=== PATIENT | male | born 1945 | race Caucasian/White ===

== ENCOUNTER 2016-11-22 08:13 | Emergency (ER) | payer MEDICARE ==
--- NOTE | 2016-11-22 08:57 | ED ---
General Adult HPI - General Chief complaint: Urogenital Stated complaint: Altered Mental Time Seen by Provider: 11/22/16 08:50 Source: patient, EMS, RN notes reviewed Mode of arrival: EMS Limitations: no limitations - History of Present Illness Initial comments: Patient is a 71-year-old male who presents emergency room today by EMS, the chief complaint of dizziness that occurred earlier this morning. States he woke up he felt that his face was flushed. He states he did go to the mirror to look. States he got a little lightheaded and dizzy on his way to the bathroom. He admits that it lasted approximately 20 minutes. He states that this time he is feeling much better. He denies any complaints currently. He admits to problems voiding. He states is been ongoing. He states he has a decreased stream. Patient denies any recent fever, chills, shortness of breath, chest pain, back pain, abdominal pain, nausea or vomiting, numbness or tingling , dysuria or hematuria, constipation or diarrhea, headaches or visual changes, or any other complaints. - Related Data Home Medications Medication Instructions Recorded Confirmed Ipratropium/Albuterol Sulfate 3 ml INHALATION RT-QID PRN 01/01/14 11/22/16 [Duoneb 0.5 mg-3 mg/3 ml Soln] Atorvastatin [Lipitor] 40 mg PO DAILY 11/22/16 11/22/16 Citalopram Hydrobromide [CeleXA] 40 mg PO DAILY 11/22/16 11/22/16 Ergocalciferol [Vitamin D2] 50,000 unit PO Q7D 11/22/16 11/22/16 Famotidine [Pepcid] 20 mg PO DAILY 11/22/16 11/22/16 Folic Acid 1 mg PO DAILY 11/22/16 11/22/16 Insulin Glargine,Hum.rec.anlog 80 unit SQ DAILY 11/22/16 11/22/16 [Lantus Solostar] Insulin Lispro [humaLOG Kwikpen] 12 unit SQ TID 11/22/16 11/22/16 Lisinopril [Zestril] 40 mg PO DAILY 11/22/16 11/22/16 Magnesium Oxide [Mag-Ox] 400 mg PO BID 04/04/17 04/04/17 risperiDONE [RisperDAL] 1 mg PO DAILY 11/22/16 11/22/16 Previous Rx's Medication Instructions Recorded Ciprofloxacin HCl [Cipro] 500 mg PO Q12HR #20 day 11/22/16 Allergies Allergy/AdvReac Type Severity Reaction Status Date / Time No Known Allergies Allergy Verified 11/22/16 09:10 Review of Systems ROS Statement: Those systems with pertinent positive or pertinent negative responses have been documented in the HPI. ROS Other: All systems not noted in ROS Statement are negative. Past Medical History Past Medical History: Asthma, Diabetes Mellitus, Hyperlipidemia, Hypertension, Pneumonia Additional Past Medical History / Comment(s): ECZEMA, HAS SOME BLOCKAGE TO CAROTIDS NOT SURE WHAT %, PT STATED HIS BODY MAKES TOO MUCH BLOOD THEY HAD TO TAKE BLOOD FROM HIM, CENTRAL RETINAL VEIN OCCLUSION LT EYE. History of Any Multi-Drug Resistant Organisms: None Reported Past Surgical History: Tonsillectomy Additional Past Surgical History / Comment(s): neck surgery-DISC SX AND HAS A CADAVIER BONE , LT EYE CATARACT, LT EYE-RETINAL SX, RT HAND PINKY FINGER HAD CRUSHING INJURY-SX TO REPAIR. Past Anesthesia/Blood Transfusion Reactions: No Reported Reaction Past Psychological History: Anxiety Smoking Status: Former smoker Past Alcohol Use History: None Reported Past Drug Use History: None Reported, Unable to Obtain General Exam - General Exam Comments Initial Comments: General: The patient is awake and alert, in no distress, and does not appear acutely ill. Eye: Pupils are equal, round and reactive to light, extra-ocular movements are intact. No nystagmus. There is normal conjunctiva bilaterally. No signs of icterus. Ears, nose, mouth and throat: There are moist mucous membranes and no oral lesions. Neck: The neck is supple, there is no tenderness or JVD. Cardiovascular: There is a regular rate and rhythm. No murmur, rub or gallop is appreciated. Respiratory: Lungs are clear to auscultation, respirations are non-labored, breath sounds are equal. No wheezes, stridor, rales, or rhonchi. Gastrointestinal: Soft, non-distended, non-tender abdomen without masses or organomegaly noted. There is no rebound or guarding present. No CVA tenderness. Bowel sounds are unremarkable. Musculoskeletal: Normal ROM, no tenderness. Strength 5/5. Sensation intact. Pulses equal bilaterally 2+. Neurological: A&O x 3. CN II-XII intact, There are no obvious motor or sensory deficits. Coordination appears grossly intact. Speech is normal. Skin: Skin is warm and dry and no rashes or lesions are noted. Psychiatric: Cooperative, appropriate mood & affect, normal judgment. Limitations: no limitations Course Vital Signs 11/22/16 11/22/16 11/22/16 08:15 08:48 13:07 Temperature 98.7 F 98.2 F Pulse Rate 85 90 Respiratory 18 18 17 Rate Blood Pressure 129/58 193/79 O2 Sat by Pulse 99 92 L Oximetry EKG Findings - EKG Comments: EKG Findings:: EKG performed at 0930: A 12-lead EKG was performed and interpreted by me as showing the following: Rate is 84, and rhythm is normal sinus. There are normal QRS complexes and normal R-wave progression. ST segments have no elevation or depression, and PA segments appear normal. Medical Decision Making - Medical Decision Making Patient reexamined at this time shows no signs of distress. He is been able to her urine emergency room. He has no complaints. No dizziness or lightheadedness. His labs been reviewed does show 15,000 white count. Rare bacteria in his urine sample. He does admit to some symptoms of dysuria. He will be covered with antibiotics as culture is pending. Patient feels comfortable being discharged home. Case was discussed with attending physician Dr. Mcclendon. - Lab Data Result diagrams: 11/22/16 08:48 11/22/16 08:48 Lab Results 11/22/16 11/22/16 11/22/16 Range/Units 08:43 08:48 08:48 WBC 15.7 H (3.8-10.6) k/uL RBC 4.77 (4.30-5.90) m/uL Hgb 15.1 (13.0-17.5) gm/dL Hct 46.6 (39.0-53.0) % MCV 97.7 (80.0-100.0) fL MCH 31.7 (25.0-35.0) pg MCHC 32.4 (31.0-37.0) g/dL RDW 13.7 (11.5-15.5) % Plt Count 209 (150-450) k/uL Neutrophils % 91 % Lymphocytes % 4 % Monocytes % 5 % Eosinophils % 0 % Basophils % 0 % Neutrophils # 14.2 H (1.3-7.7) k/uL Lymphocytes # 0.6 L (1.0-4.8) k/uL Monocytes # 0.7 (0-1.0) k/uL Eosinophils # 0.0 (0-0.7) k/uL Basophils # 0.0 (0-0.2) k/uL PT (9.0-12.0) sec INR (<1.1) APTT (22.0-30.0) sec Sodium (137-145) mmol/L Potassium (3.5-5.1) mmol/L Chloride (98-107) mmol/L Carbon Dioxide (22-30) mmol/L Anion Gap mmol/L BUN (9-20) mg/dL Creatinine (0.66-1.25) mg/dL Est GFR (MDRD) Af Amer (>60 ml/min/1.73 sqM) Est GFR (MDRD) Non-Af (>60 ml/min/1.73 sqM) Glucose (74-99) mg/dL POC Glucose (mg/dL) 183 H (75-99) mg/dL POC Glu Theatrical Dresser ID Sharon Pool Calcium (8.4-10.2) mg/dL Magnesium (1.6-2.3) mg/dL Total Bilirubin (0.2-1.3) mg/dL AST (17-59) U/L ALT (21-72) U/L Alkaline Phosphatase (38-126) U/L Total Creatine Kinase 535 H (55-170) U/L CK-MB (CK-2) 5.1 H* (0.0-2.4) ng/mL CK-MB (CK-2) Rel Index 1.0 Troponin I 0.024 (0.000-0.034) ng/mL Total Protein (6.3-8.2) g/dL Albumin (3.5-5.0) g/dL Urine Color Urine Appearance (Clear) Urine pH (5.0-8.0) Ur Specific Adams (1.001-1.035) Urine Protein (Negative) Urine Glucose (UA) (Negative) Urine Ketones (Negative) Urine Blood (Negative) Urine Nitrite (Negative) Urine Bilirubin (Negative) Urine Urobilinogen (<2.0) mg/dL Ur Leukocyte Esterase (Negative) Urine RBC (0-5) /hpf Urine WBC (0-5) /hpf Ur Squamous Epith Cells (0-4) /hpf Urine Bacteria (None) /hpf Hyaline Casts (0-2) /lpf Granular Casts (0) /lpf Urine Mucus (None) /hpf 11/22/16 11/22/16 11/22/16 Range/Units 08:48 08:48 10:50 WBC (3.8-10.6) k/uL RBC (4.30-5.90) m/uL Hgb (13.0-17.5) gm/dL Hct (39.0-53.0) % MCV (80.0-100.0) fL MCH (25.0-35.0) pg MCHC (31.0-37.0) g/dL RDW (11.5-15.5) % Plt Count (150-450) k/uL Neutrophils % % Lymphocytes % % Monocytes % % Eosinophils % % Basophils % % Neutrophils # (1.3-7.7) k/uL Lymphocytes # (1.0-4.8) k/uL Monocytes # (0-1.0) k/uL Eosinophils # (0-0.7) k/uL Basophils # (0-0.2) k/uL PT 10.8 (9.0-12.0) sec INR 1.1 (<1.1) APTT 23.3 (22.0-30.0) sec Sodium 145 (137-145) mmol/L Potassium 4.3 (3.5-5.1) mmol/L Chloride 104 (98-107) mmol/L Carbon Dioxide 25 (22-30) mmol/L Anion Gap 16 mmol/L BUN 30 H (9-20) mg/dL Creatinine 1.09 (0.66-1.25) mg/dL Est GFR (MDRD) Af Amer >60 (>60 ml/min/1.73 sqM) Est GFR (MDRD) Non-Af >60 (>60 ml/min/1.73 sqM) Glucose 187 H (74-99) mg/dL POC Glucose (mg/dL) (75-99) mg/dL POC Glu Theatrical Dresser ID Calcium 9.2 (8.4-10.2) mg/dL Magnesium 2.1 (1.6-2.3) mg/dL Total Bilirubin 0.9 (0.2-1.3) mg/dL AST 32 (17-59) U/L ALT 21 (21-72) U/L Alkaline Phosphatase 80 (38-126) U/L Total Creatine Kinase (55-170) U/L CK-MB (CK-2) (0.0-2.4) ng/mL CK-MB (CK-2) Rel Index Troponin I (0.000-0.034) ng/mL Total Protein 6.4 (6.3-8.2) g/dL Albumin 3.5 (3.5-5.0) g/dL Urine Color Yellow Urine Appearance Clear (Clear) Urine pH 6.0 (5.0-8.0) Ur Specific Adams 1.016 (1.001-1.035) Urine Protein 3+ H (Negative) Urine Glucose (UA) Negative (Negative) Urine Ketones Negative (Negative) Urine Blood Moderate H (Negative) Urine Nitrite Negative (Negative) Urine Bilirubin Negative (Negative) Urine Urobilinogen <2.0 (<2.0) mg/dL Ur Leukocyte Esterase Negative (Negative) Urine RBC 7 H (0-5) /hpf Urine WBC 1 (0-5) /hpf Ur Squamous Epith Cells <1 (0-4) /hpf Urine Bacteria Rare H (None) /hpf Hyaline Casts 39 H (0-2) /lpf Granular Casts 1 (0) /lpf Urine Mucus Rare H (None) /hpf Disposition Clinical Impression: UTI (urinary tract infection) Disposition: HOME SELF-CARE Condition: Good Instructions: Urinary Tract Infection in Men (ED) Additional Instructions: Please use medication as discussed. Please follow-up with family doctor in the next 2 days of symptoms have not improved. Please return to emergency room if the symptoms increase or worsen or for any other concerns. Prescriptions: Ciprofloxacin HCl [Cipro] 500 mg PO Q12HR #20 day Time of Disposition: 13:29
--- NOTE | 2016-11-22 09:31 | XR ---
EXAMINATION TYPE: XR chest 2V DATE OF EXAM: 11/22/2016 9:24 AM COMPARISON: 07/05/2015 INDICATION: Chest pain TECHNIQUE: Single frontal view of the chest is obtained. FINDINGS: The heart size is normal. The pulmonary vasculature is normal. There appears to be a posterior left pleural effusion. Suspicious focal consolidation is not identified. IMPRESSION: 1. Small left posterior pleural effusion.
[2016-11-22 09:43] LABS: Basophils % (A) 0 %; CH 31.6; CHCM 32.6; Eosinophils % (A) 0 %; HCT 46.6 % (39.0-53.0); HDW 2.74; HGB 15.1 gm/dL (13.0-17.5); Luc # (Auto) 0.09; Luc % (Auto) 1; Lymphocytes # (A) 0.6 k/uL (1.0-4.8); Lymphocytes % (A) 4 %; MCH 31.7 pg (25.0-35.0); MCHC 32.4 g/dL (31.0-37.0); MCV 97.7 fL (80.0-100.0); Mean Platelet Volume 7.6; Monocytes # (A) 0.7 k/uL (0-1.0); Monocytes % (A) 5 %; Neutrophils # (A) 14.2 k/uL (1.3-7.7); Neutrophils % (A) 91 %; RBC 4.77 m/uL (4.30-5.90); RDW 13.7 % (11.5-15.5); WBC 15.7 k/uL (3.8-10.6)
[2016-11-22 09:46] LABS: INR 1.1 (<1.1); Partial Thromboplastin Time 23.3 sec (22.0-30.0); Prothrombin Time 10.8 sec (9.0-12.0)
[2016-11-22 09:54] LABS: Glucose,Whole Blood 183 mg/dL (75-99)
[2016-11-22 10:04] LABS: ALT 21 U/L (21-72); AST 32 U/L (17-59); Alkaline Phosphatase 80 U/L (38-126); Anion Gap 16 mmol/L; Blood Urea Nitrogen 30 mg/dL (9-20); Calcium 9.2 mg/dL (8.4-10.2); Carbon Dioxide 25 mmol/L (22-30); Chloride 104 mmol/L (98-107); Glucose 187 mg/dL (74-99); Magnesium 2.1 mg/dL (1.6-2.3); Non-African American GFR(MDRD) >60 (>60 ml/min/1.73 sqM); Potassium 4.3 mmol/L (3.5-5.1); Sodium 145 mmol/L (137-145); Total Bilirubin 0.9 mg/dL (0.2-1.3); Total Protein 6.4 g/dL (6.3-8.2)
[2016-11-22 10:16] LABS: Troponin I 0.024 ng/mL (0.000-0.034)
[2016-11-22 10:27] LABS: Creatine Kinase MB 5.1 ng/mL (0.0-2.4)
[2016-11-22 11:42] LABS: Appearance,Urine Clear (Clear); Bacteria,Urine Rare /hpf; Bilirubin,Urine Negative (Negative); Glucose,Urine (UA) Negative (Negative); Granular Casts,Urine 1 /lpf (0); Ketones,Urine Negative (Negative); Leukocyte Esterase,Urine Negative (Negative); Mucus,Urine Rare /hpf; Nitrite,Urine Negative (Negative); Particle Count 5117; Protein,Urine 3+ (Negative); RBC,Urine 7 /hpf (0-5); Specific Gravity,Urine 1.016 (1.001-1.035); Squamous Epithelial Cell,Urine <1 /hpf (0-4); UA Billing (MACRO vs. MICRO) MICRO; Urobilinogen,Urine <2.0 mg/dL (<2.0); WBC,Urine 1 /hpf (0-5)
[2016-11-22 13:52] VITALS: BP 170/73; PULSE 80; RESP 18; TEMP 97.7
== END 2016-11-22 14:06 | disposition home or self-care (01) ==
LOC: EC 08:13
DX: N39.0 Urinary tract infection, site not specified (principal); R42 Dizziness and giddiness; E78.5 Hyperlipidemia, unspecified; E11.9 Type 2 diabetes mellitus without complications; I10 Essential (primary) hypertension; Z79.4 Long term (current) use of insulin; Z87.891 Personal history of nicotine dependence; Z79.899 Other long term (current) drug therapy
CPT/HCPCS: 36415; 71020; 80053; 81001; 82550; 82553; 83735; 84484; 85025; 85610; 85730; 87086; 93005; 99284

== ENCOUNTER 2017-02-16 20:01 | Inpatient (IN) | payer MEDICARE ==
[2017-02-16] MEDS ORDERED: SODIUM CHLORIDE 0.9% 1,000 ML IV STA (20:48)
--- NOTE | 2017-02-16 21:00 | ED ---
General Adult HPI - General Chief complaint: Weakness Stated complaint: generalized weakness Time Seen by Provider: 02/16/17 20:45 Source: patient, EMS, RN notes reviewed, old records reviewed Mode of arrival: EMS Limitations: no limitations - History of Present Illness Initial comments: This is a 71-year-old male here for evaluation regarding altered mental status, patient unable to give accurate history at this time. Patient sent to ER from [facility] regarding altered mental status and acting appropriate distress rough hypoxia. History obtained from EMS staff and family - Related Data Home Medications Medication Instructions Recorded Confirmed Atorvastatin [Lipitor] 40 mg PO HS 11/22/16 02/16/17 Citalopram Hydrobromide [CeleXA] 40 mg PO QAM 11/22/16 02/16/17 Famotidine [Pepcid] 20 mg PO QAM 11/22/16 02/16/17 Folic Acid 1 mg PO QAM 11/22/16 02/16/17 Insulin Glargine,Hum.rec.anlog 80 unit SQ HS 11/22/16 02/16/17 [Lantus Solostar] Insulin Lispro [humaLOG Kwikpen] 14 unit SQ TID-W/MEALS 11/22/16 02/16/17 Lisinopril [Zestril] 40 mg PO QAM 11/22/16 02/16/17 Magnesium Oxide [Mag-Ox] 400 mg PO BID 11/22/16 02/16/17 risperiDONE [RisperDAL] 1 mg PO QAM 11/22/16 02/16/17 Carboxymethylcellulose Sodium 1 drop BOTH EYES TID PRN 02/16/17 02/16/17 [Refresh Tears] Cholecalciferol (Vitamin D3) 2,000 unit PO QAM 02/16/17 02/16/17 [Vitamin D3] Allergies Allergy/AdvReac Type Severity Reaction Status Date / Time No Known Allergies Allergy Verified 11/22/16 09:10 Review of Systems ROS Statement: Those systems with pertinent positive or pertinent negative responses have been documented in the HPI. ROS Other: All systems not noted in ROS Statement are negative. Past Medical History Past Medical History: Asthma, Diabetes Mellitus, Hyperlipidemia, Hypertension, Pneumonia Additional Past Medical History / Comment(s): ECZEMA, HAS SOME BLOCKAGE TO CAROTIDS NOT SURE WHAT %, PT STATED HIS BODY MAKES TOO MUCH BLOOD THEY HAD TO TAKE BLOOD FROM HIM, CENTRAL RETINAL VEIN OCCLUSION LT EYE. History of Any Multi-Drug Resistant Organisms: None Reported Past Surgical History: Tonsillectomy Additional Past Surgical History / Comment(s): neck surgery-DISC SX AND HAS A CADAVIER BONE , LT EYE CATARACT, LT EYE-RETINAL SX, RT HAND PINKY FINGER HAD CRUSHING INJURY-SX TO REPAIR. Past Anesthesia/Blood Transfusion Reactions: No Reported Reaction Past Psychological History: Anxiety Smoking Status: Former smoker Past Alcohol Use History: None Reported Past Drug Use History: None Reported, Unable to Obtain General Exam Limitations: altered mental status General appearance: alert, in no apparent distress, anxious Head exam: Present: atraumatic, normocephalic, normal inspection Eye exam: Present: normal appearance, PERRL, EOMI. Absent: scleral icterus, conjunctival injection, periorbital swelling ENT exam: Present: normal exam, mucous membranes moist Neck exam: Present: normal inspection. Absent: tenderness, meningismus, lymphadenopathy Respiratory exam: Present: normal lung sounds bilaterally, respiratory distress , rales, accessory muscle use, decreased breath sounds, prolonged expiratory. Absent: wheezes, rhonchi, stridor Cardiovascular Exam: Present: regular rate, normal rhythm, normal heart sounds. Absent: systolic murmur, diastolic murmur, rubs, gallop, clicks GI/Abdominal exam: Present: soft, normal bowel sounds. Absent: distended, tenderness, guarding, rebound, rigid Extremities exam: Present: normal inspection, full ROM, normal capillary refill. Absent: tenderness, pedal edema, joint swelling, calf tenderness Back exam: Present: normal inspection Neurological exam: Present: alert, oriented X3, CN II-XII intact Psychiatric exam: Present: normal affect, normal mood Skin exam: Present: warm, dry, intact, normal color. Absent: rash Course Vital Signs 02/16/17 02/16/17 02/16/17 20:02 20:14 21:24 Temperature 99.1 F Pulse Rate 81 74 Respiratory 20 22 18 Rate Blood Pressure 167/69 151/63 O2 Sat by Pulse 92 L 98 Oximetry - Reevaluation(s) Reevaluation #1: 02/16/17 22:47 Patient maintaining pulse ox with supplemental O2 EKG Findings - EKG Comments: EKG Findings:: EKG shows sinus rhythm rate of 89, by mouth 40, QRS 90, QTc 469 Medical Decision Making - Medical Decision Making 71 male here for evaluation regarding altered mental status hypoxia, his chest x -ray positive for significant CHF, will admit for diuresis, management of hypoxia. - Lab Data Result diagrams: 02/16/17 20:08 02/16/17 20:08 Lab Results 02/16/17 02/16/17 02/16/17 Range/Units 20:08 20:08 20:08 WBC 9.7 (3.8-10.6) k/uL RBC 4.39 (4.30-5.90) m/uL Hgb 13.9 (13.0-17.5) gm/dL Hct 41.7 (39.0-53.0) % MCV 95.1 (80.0-100.0) fL MCH 31.7 (25.0-35.0) pg MCHC 33.4 (31.0-37.0) g/dL RDW 14.1 (11.5-15.5) % Plt Count 177 (150-450) k/uL Neutrophils % 73 % Lymphocytes % 17 % Monocytes % 7 % Eosinophils % 1 % Basophils % 0 % Neutrophils # 7.1 (1.3-7.7) k/uL Lymphocytes # 1.6 (1.0-4.8) k/uL Monocytes # 0.7 (0-1.0) k/uL Eosinophils # 0.1 (0-0.7) k/uL Basophils # 0.0 (0-0.2) k/uL PT (9.0-12.0) sec INR (<1.1) APTT (22.0-30.0) sec Sodium 140 (137-145) mmol/L Potassium 4.5 (3.5-5.1) mmol/L Chloride 102 (98-107) mmol/L Carbon Dioxide 31 H (22-30) mmol/L Anion Gap 7 mmol/L BUN 23 H (9-20) mg/dL Creatinine 0.87 (0.66-1.25) mg/dL Est GFR (MDRD) Af Amer >60 (>60 ml/min/1.73 sqM) Est GFR (MDRD) Non-Af >60 (>60 ml/min/1.73 sqM) Glucose 120 H (74-99) mg/dL Plasma Lactic Acid Blaine (0.7-2.0) mmol/L Calcium 8.4 (8.4-10.2) mg/dL Phosphorus 4.1 (2.5-4.5) mg/dL Magnesium 1.9 (1.6-2.3) mg/dL Total Bilirubin 0.6 (0.2-1.3) mg/dL AST 22 (17-59) U/L ALT 20 L (21-72) U/L Alkaline Phosphatase 71 (38-126) U/L Total Creatine Kinase 107 (55-170) U/L CK-MB (CK-2) 1.7 (0.0-2.4) ng/mL CK-MB (CK-2) Rel Index 1.6 Troponin I 0.030 (0.000-0.034) ng/mL Total Protein 5.4 L (6.3-8.2) g/dL Albumin 2.8 L (3.5-5.0) g/dL Urine Color Urine Appearance (Clear) Urine pH (5.0-8.0) Ur Specific Cameron (1.001-1.035) Urine Protein (Negative) Urine Glucose (UA) (Negative) Urine Ketones (Negative) Urine Blood (Negative) Urine Nitrite (Negative) Urine Bilirubin (Negative) Urine Urobilinogen (<2.0) mg/dL Ur Leukocyte Esterase (Negative) Urine RBC (0-5) /hpf Urine WBC (0-5) /hpf Urine Bacteria (None) /hpf Hyaline Casts (0-2) /lpf Urine Mucus (None) /hpf 02/16/17 02/16/17 02/16/17 Range/Units 20:08 20:08 22:27 WBC (3.8-10.6) k/uL RBC (4.30-5.90) m/uL Hgb (13.0-17.5) gm/dL Hct (39.0-53.0) % MCV (80.0-100.0) fL MCH (25.0-35.0) pg MCHC (31.0-37.0) g/dL RDW (11.5-15.5) % Plt Count (150-450) k/uL Neutrophils % % Lymphocytes % % Monocytes % % Eosinophils % % Basophils % % Neutrophils # (1.3-7.7) k/uL Lymphocytes # (1.0-4.8) k/uL Monocytes # (0-1.0) k/uL Eosinophils # (0-0.7) k/uL Basophils # (0-0.2) k/uL PT 10.6 (9.0-12.0) sec INR 1.0 (<1.1) APTT 24.4 (22.0-30.0) sec Sodium (137-145) mmol/L Potassium (3.5-5.1) mmol/L Chloride (98-107) mmol/L Carbon Dioxide (22-30) mmol/L Anion Gap mmol/L BUN (9-20) mg/dL Creatinine (0.66-1.25) mg/dL Est GFR (MDRD) Af Amer (>60 ml/min/1.73 sqM) Est GFR (MDRD) Non-Af (>60 ml/min/1.73 sqM) Glucose (74-99) mg/dL Plasma Lactic Acid Blaine 1.2 (0.7-2.0) mmol/L Calcium (8.4-10.2) mg/dL Phosphorus (2.5-4.5) mg/dL Magnesium (1.6-2.3) mg/dL Total Bilirubin (0.2-1.3) mg/dL AST (17-59) U/L ALT (21-72) U/L Alkaline Phosphatase (38-126) U/L Total Creatine Kinase (55-170) U/L CK-MB (CK-2) (0.0-2.4) ng/mL CK-MB (CK-2) Rel Index Troponin I (0.000-0.034) ng/mL Total Protein (6.3-8.2) g/dL Albumin (3.5-5.0) g/dL Urine Color Yellow Urine Appearance Clear (Clear) Urine pH 7.0 (5.0-8.0) Ur Specific Cameron 1.012 (1.001-1.035) Urine Protein 3+ H (Negative) Urine Glucose (UA) Negative (Negative) Urine Ketones Negative (Negative) Urine Blood Small H (Negative) Urine Nitrite Negative (Negative) Urine Bilirubin Negative (Negative) Urine Urobilinogen <2.0 (<2.0) mg/dL Ur Leukocyte Esterase Negative (Negative) Urine RBC 9 H (0-5) /hpf Urine WBC 1 (0-5) /hpf Urine Bacteria Rare H (None) /hpf Hyaline Casts 3 H (0-2) /lpf Urine Mucus Rare H (None) /hpf - Radiology Data Radiology results: report reviewed (Chest x-ray shows significant pulmonary edema and CHF), image reviewed Disposition Clinical Impression: Asthma exacerbation in COPD, Congestive heart failure, Altered mental state Disposition: ADMITTED IP TO THIS HOSP Condition: Fair Referrals: Lukas Aviles MD [Primary Care Provider] - 1-2 days
[2017-02-16 21:14] LABS: Basophils % (A) 0 %; CH 30.4; CHCM 32.2; Eosinophils # (A) 0.1 k/uL (0-0.7); Eosinophils % (A) 1 %; HCT 41.7 % (39.0-53.0); HDW 2.67; HGB 13.9 gm/dL (13.0-17.5); Luc # (Auto) 0.15; Luc % (Auto) 2; Lymphocytes # (A) 1.6 k/uL (1.0-4.8); Lymphocytes % (A) 17 %; MCH 31.7 pg (25.0-35.0); MCHC 33.4 g/dL (31.0-37.0); MCV 95.1 fL (80.0-100.0); Mean Platelet Volume 7.5; Monocytes # (A) 0.7 k/uL (0-1.0); Monocytes % (A) 7 %; Neutrophils # (A) 7.1 k/uL (1.3-7.7); Neutrophils % (A) 73 %; RBC 4.39 m/uL (4.30-5.90); RDW 14.1 % (11.5-15.5); WBC 9.7 k/uL (3.8-10.6)
[2017-02-16 21:23] LABS: ALT 20 U/L (21-72); AST 22 U/L (17-59); Alkaline Phosphatase 71 U/L (38-126); Anion Gap 7 mmol/L; Blood Urea Nitrogen 23 mg/dL (9-20); Calcium 8.4 mg/dL (8.4-10.2); Carbon Dioxide 31 mmol/L (22-30); Chloride 102 mmol/L (98-107); Glucose 120 mg/dL (74-99); Magnesium 1.9 mg/dL (1.6-2.3); Non-African American GFR(MDRD) >60 (>60 ml/min/1.73 sqM); Phosphorous 4.1 mg/dL (2.5-4.5); Potassium 4.5 mmol/L (3.5-5.1); Sodium 140 mmol/L (137-145); Total Bilirubin 0.6 mg/dL (0.2-1.3); Total Protein 5.4 g/dL (6.3-8.2)
--- NOTE | 2017-02-16 21:29 | XR ---
EXAMINATION TYPE: XR chest 2V DATE OF EXAM: 02/16/2017 COMPARISON: November 22, 2016 HISTORY: Weakness and confusion TECHNIQUE: Frontal and lateral views of the chest are obtained. FINDINGS: There is moderate obscuration of the pulmonary vasculature by a fine reticular pattern of increased density throughout the lung parenchyma, reaching the periphery as septal lines. There is al so ill-defined thickening of the interlobar fissures and bilateral pleural effusions. Mild to moderat mary enlarged cardiac silhouette redemonstrated. Mediastinum is midline. There is no pneumothorax and no other abnormal gas collections. The bones an d soft tissues are unremarkable. IMPRESSION: Moderate-plus cardiogenic pulmonary edema.
[2017-02-16 21:32] LABS: Partial Thromboplastin Time 24.4 sec (22.0-30.0); Prothrombin Time 10.6 sec (9.0-12.0)
[2017-02-16 21:41] LABS: Creatine Kinase MB 1.7 ng/mL (0.0-2.4); Troponin I 0.03 ng/mL (0.000-0.034)
[2017-02-16 22:40] LABS: Appearance,Urine Clear (Clear); Bacteria,Urine Rare /hpf; Bilirubin,Urine Negative (Negative); Glucose,Urine (UA) Negative (Negative); Ketones,Urine Negative (Negative); Leukocyte Esterase,Urine Negative (Negative); Mucus,Urine Rare /hpf; Nitrite,Urine Negative (Negative); Particle Count 1247; Protein,Urine 3+ (Negative); RBC,Urine 9 /hpf (0-5); Specific Gravity,Urine 1.012 (1.001-1.035); UA Billing (MACRO vs. MICRO) MICRO; Urobilinogen,Urine <2.0 mg/dL (<2.0); WBC,Urine 1 /hpf (0-5)
[2017-02-16] MEDS ORDERED: FUROSEMIDE 10 MG/ML 4 ML VIAL IV SCH (22:45)
[2017-02-16] MEDS ORDERED: IPRATROPIUM-ALBUTEROL 3 ML NEB INHALATION STA (22:51)
[2017-02-16] MEDS ORDERED: IPRATROPIUM-ALBUTEROL 3 ML NEB INHALATION PRN (23:50)
[2017-02-17] MEDS ORDERED: IPRATROPIUM-ALBUTEROL 3 ML NEB INHALATION SCH
[2017-02-17 00:28] LABS: Glucose,Whole Blood 92 mg/dL (75-99)
[2017-02-17 06:24] LABS: Glucose,Whole Blood 120 mg/dL (75-99)
[2017-02-17] MEDS: IPRATROPIUM-ALBUTEROL 3 ML NEB INHALATION SCH ×4 (07:10→20:34)
[2017-02-17] MEDS ORDERED: ARTIFICIAL TEARS-HYPROMELLOSE DROPS 15 ML BTL BOTH EYES PRN (08:50)
--- NOTE | 2017-02-17 10:35 | P.HPIM ---
History of Present Illness H&P Date: 02/17/17 Chief Complaint: Mental status changes 71-year-old male looking older than stated age was transferred from the [place] assisted-living. The EMS system after patient was noted to be experiencing altered mental status. Patient is a poor historian and is unable to give accurate history at this time. History is been obtained from reviewing prior medical records and nursing staff in the ER record no family at the bedside when asking patient the vitals in the emergency room showed a temp of 99.1 heart rate in the 80s blood pressure 167/69 and on sats were documented 92% . The chest x-ray obtained suggest heart failure with pulmonary edema white count 9.7 electrolytes within normal limits blood glucose in the emergency room 92 currently patient is sitting up temp is 97 and on 2 L nasal cannula sats are documented 92% when questioning patient patient is stating he is not having any shortness of breath is denying chest pain Review of Systems Difficult to obtain patient has no adequate recall Past Medical History Past Medical History: Asthma, Diabetes Mellitus, Hyperlipidemia, Hypertension, Pneumonia Additional Past Medical History / Comment(s): ECZEMA, HAS SOME BLOCKAGE TO CAROTIDS NOT SURE WHAT %, PT STATED HIS BODY MAKES TOO MUCH BLOOD THEY HAD TO TAKE BLOOD FROM HIM, CENTRAL RETINAL VEIN OCCLUSION LT EYE. History of Any Multi-Drug Resistant Organisms: None Reported Past Surgical History: Tonsillectomy Additional Past Surgical History / Comment(s): neck surgery-DISC SX AND HAS A CADAVIER BONE , LT EYE CATARACT, LT EYE-RETINAL SX, RT HAND PINKY FINGER HAD CRUSHING INJURY-SX TO REPAIR. Past Anesthesia/Blood Transfusion Reactions: No Reported Reaction Past Psychological History: Anxiety Smoking Status: Former smoker Past Alcohol Use History: None Reported Past Drug Use History: None Reported - Past Family History Father Family Medical History: COPD Mother Family Medical History: Coronary Artery Disease (CAD), Myocardial Infarction ([place] ) Medications and Allergies Home Medications Medication Instructions Recorded Confirmed Type Atorvastatin [Lipitor] 40 mg PO HS 11/22/16 02/16/17 History Citalopram Hydrobromide [CeleXA] 40 mg PO QAM 11/22/16 02/16/17 History Famotidine [Pepcid] 20 mg PO QAM 11/22/16 02/16/17 History Folic Acid 1 mg PO QAM 11/22/16 02/16/17 History Insulin Glargine,Hum.rec.anlog 80 unit SQ HS 11/22/16 02/16/17 History [Lantus Solostar] Insulin Lispro [humaLOG Kwikpen] 14 unit SQ TID-W/MEALS 11/22/16 02/16/17 History Lisinopril [Zestril] 40 mg PO QAM 11/22/16 02/16/17 History Magnesium Oxide [Mag-Ox] 400 mg PO BID 11/22/16 02/16/17 History risperiDONE [RisperDAL] 1 mg PO QAM 11/22/16 02/16/17 History Carboxymethylcellulose Sodium 1 drop BOTH EYES TID PRN 02/16/17 02/16/17 History [Refresh Tears] Cholecalciferol (Vitamin D3) 2,000 unit PO QAM 02/16/17 02/16/17 History [Vitamin D3] Allergies Allergy/AdvReac Type Severity Reaction Status Date / Time No Known Allergies Allergy Verified 11/22/16 09:10 Physical Exam Vitals: Vital Signs Temp Pulse Pulse Resp BP BP Pulse Ox 02/17/17 07:56 80 02/17/17 07:20 76 02/17/17 04:00 97.0 F L 77 18 142/74 93 L 02/17/17 00:00 98.0 F 80 18 153/70 95 02/16/17 23:46 98 02/16/17 23:35 98 02/16/17 23:13 97.5 F L 74 18 164/67 99 02/16/17 23:11 84 02/16/17 23:04 78 02/16/17 22:55 79 18 173/74 98 02/16/17 22:44 72 18 165/70 6 L 02/16/17 21:24 74 18 151/63 98 02/16/17 20:14 22 02/16/17 20:02 99.1 F 81 20 167/69 92 L Intake and Output 02/16/17 02/17/17 02/17/17 22:59 06:59 14:59 Output Total 500 Balance -500 Output: Urine 500 Other: Voiding Method Diaper # Voids 2 Weight 107.955 kg 109.5 kg GENERAL APPEARANCE: 71-year-old male patient is alert, oriented, in no acute distress. Oriented to self and place pleasant cooperative VITAL SIGNS: Reviewed HEENT: Head is normocephalic and atraumatic. Pupils are equal and reactive. The nares are patent. Oropharynx is clear without lesions. NECK: Supple without lymphadenopathy. Traches midline. HEART: S1, S2. Regular rate and rhythm. Monitor sinus rhythm occasional PVC LUNGS: Posterior diminished at the bases poor air entry no cough noted no wheezing noted no use of accessory muscles to breathe ABDOMEN: Soft, nontender, nondistended with good bowel sounds. No peritoneal signs. No palpable organomegaly or masses. Incontinent urine EXTREMITIES: Normal skin color and turgor. No cyanosis, rash, ulceration, clubbing or edema. Radial pedal pulses are 2/4 bilaterally. NEUROLOGICAL: No focal deficits. Strength and sensation are grossly intact. Results CBC & Chem 7: 02/16/17 20:08 02/16/17 20:08 Labs: Abnormal Lab Results - Last 24 Hours (Table) 02/16/17 02/16/17 02/17/17 Range/Units 20:08 22:27 06:04 Carbon Dioxide 31 H (22-30) mmol/L BUN 23 H (9-20) mg/dL Glucose 120 H (74-99) mg/dL POC Glucose (mg/dL) 120 H (75-99) mg/dL ALT 20 L (21-72) U/L Troponin I (0.000-0.034) ng/mL Total Protein 5.4 L (6.3-8.2) g/dL Albumin 2.8 L (3.5-5.0) g/dL Urine Protein 3+ H (Negative) Urine Blood Small H (Negative) Urine RBC 9 H (0-5) /hpf Urine Bacteria Rare H (None) /hpf Hyaline Casts 3 H (0-2) /lpf Urine Mucus Rare H (None) /hpf 02/17/17 Range/Units 08:45 Carbon Dioxide (22-30) mmol/L BUN (9-20) mg/dL Glucose (74-99) mg/dL POC Glucose (mg/dL) (75-99) mg/dL ALT (21-72) U/L Troponin I 0.065 H* (0.000-0.034) ng/mL Total Protein (6.3-8.2) g/dL Albumin (3.5-5.0) g/dL Urine Protein (Negative) Urine Blood (Negative) Urine RBC (0-5) /hpf Urine Bacteria (None) /hpf Hyaline Casts (0-2) /lpf Urine Mucus (None) /hpf Thrombosis Risk Factor Assmnt - Choose All That Apply Any of the Below Risk Factors Present?: Yes Each Factor Represents 1 point: Obesity (BMI >25), Swollen legs (current) Other Risk Factors: Yes Each Risk Factor Represents 2 Points: Age 61-74 years Other congenital or acquired thrombophilia - If yes, enter type in comment: No Thrombosis Risk Factor Assessment Total Risk Factor Score: 4 Thrombosis Risk Factor Assessment Level: Moderate Risk Assessment and Plan Plan: Impression Present on admission acute encephalopathy unclear etiology Present on admission acute hypoxic respiratory failure suspect due to exacerbation heart failure systolic or diastolic undetermined Chronic debility uses a walker Type 2 diabetes insulin requiring Depressive disorder nonspecified Mildly elevated troponin present on admission Plan Resume home meds as appropriate Cardiology consultation pending Echocardiogram eval LV function Lasix 40 IV every 12 Monitor electrolytes keep in a therapeutic range Monitor intake output and weights DVT and GI prophylaxis PT OT eval Fall precautions The above impression and plan of care have been discussed and directed by signing physician. Suzanne Smith nurse practitioner acting as scribe for signing physician.
[2017-02-17 12:04] LABS: Glucose,Whole Blood 153 mg/dL (75-99)
[2017-02-17] MEDS: risperiDONE 1 MG TAB PO SCH (12:58)
[2017-02-17] MEDS: LISINOPRIL 20 MG TAB PO SCH (12:58)
[2017-02-17] MEDS: CHOLECALCIFEROL 1,000 UNIT TAB PO SCH (12:58)
[2017-02-17] MEDS: FOLIC ACID 1 MG TAB PO SCH (12:58)
[2017-02-17] MEDS: CITALOPRAM HYDROBROMIDE 20 MG TAB PO SCH (12:59)
[2017-02-17] MEDS: FAMOTIDINE 20 MG TAB PO SCH (12:59)
[2017-02-17] MEDS: MAGNESIUM OXIDE 400 MG TAB PO SCH ×2 (12:59→20:52)
[2017-02-17] MEDS: FUROSEMIDE 10 MG/ML 4 ML VIAL IV SCH ×2 (13:00→20:52)
--- NOTE | 2017-02-17 13:26 | US ---
EXAMINATION TYPE: US renals and bladder DATE OF EXAM: 02/17/2017 COMPARISON: CLINICAL HISTORY: Evaluate hydronephrosis. Poor historian EXAM MEASUREMENTS: Right Kidney: 12.3 x 6.1 x 5.9 cm Left Kidney: 12.9 x 5.8 x 5.5 cm Right Kidney: Isoechoic lesion seen mid/medially, prominent column of krishan? Left Kidney: Cystic lesion seen in upper pole sinus region = 2.0 x 2.9 x 1.6 cm Bladder: distended, wnl as visualized Bilateral Jets not seen There is no evidence for hydronephrosis at this point in time. No nephrolithiasis is seen. The urin kelley bladder is anechoic. Ureteral jets visualized. IMPRESSION: 1. Simple cyst left kidney. 2. Probable column of Krishan right kidney.
--- NOTE | 2017-02-17 15:23 | P.CRDCN ---
History of Present Illness Reason for Consult (text): Shortness of breath History of present illness: This patient is so sleepy and unable to give any detailed history. History was mostly of pain from the chart. Patient was brought to the emergency room with the change in the mental status a hypoxia from extended care facility definite history of fever or chills with thickened cough with expectoration noted does have a history of COPD history of congestive cardiac failure Past Medical History Past Medical History: Asthma, Diabetes Mellitus, Hyperlipidemia, Hypertension, Pneumonia Additional Past Medical History / Comment(s): ECZEMA, HAS SOME BLOCKAGE TO CAROTIDS NOT SURE WHAT %, PT STATED HIS BODY MAKES TOO MUCH BLOOD THEY HAD TO TAKE BLOOD FROM HIM, CENTRAL RETINAL VEIN OCCLUSION LT EYE. History of Any Multi-Drug Resistant Organisms: None Reported Past Surgical History: Tonsillectomy Additional Past Surgical History / Comment(s): neck surgery-DISC SX AND HAS A CADAVIER BONE , LT EYE CATARACT, LT EYE-RETINAL SX, RT HAND PINKY FINGER HAD CRUSHING INJURY-SX TO REPAIR. Past Anesthesia/Blood Transfusion Reactions: No Reported Reaction Past Psychological History: Anxiety Smoking Status: Former smoker Past Alcohol Use History: None Reported Past Drug Use History: None Reported - Past Family History Father Family Medical History: COPD Mother Family Medical History: Coronary Artery Disease (CAD), Myocardial Infarction ([place] ) Medications and Allergies Home Medications Medication Instructions Recorded Confirmed Type Atorvastatin [Lipitor] 40 mg PO HS 11/22/16 02/16/17 History Citalopram Hydrobromide [CeleXA] 40 mg PO QAM 11/22/16 02/16/17 History Famotidine [Pepcid] 20 mg PO QAM 11/22/16 02/16/17 History Folic Acid 1 mg PO QAM 11/22/16 02/16/17 History Insulin Glargine,Hum.rec.anlog 80 unit SQ HS 11/22/16 02/16/17 History [Lantus Solostar] Insulin Lispro [humaLOG Kwikpen] 14 unit SQ TID-W/MEALS 11/22/16 02/16/17 History Lisinopril [Zestril] 40 mg PO QAM 11/22/16 02/16/17 History Magnesium Oxide [Mag-Ox] 400 mg PO BID 11/22/16 02/16/17 History risperiDONE [RisperDAL] 1 mg PO QAM 11/22/16 02/16/17 History Carboxymethylcellulose Sodium 1 drop BOTH EYES TID PRN 02/16/17 02/16/17 History [Refresh Tears] Cholecalciferol (Vitamin D3) 2,000 unit PO QAM 02/16/17 02/16/17 History [Vitamin D3] Allergies Allergy/AdvReac Type Severity Reaction Status Date / Time No Known Allergies Allergy Verified 11/22/16 09:10 Physical Exam Vitals: Vital Signs Temp Pulse Pulse Resp BP BP Pulse Ox 02/17/17 11:47 16 02/17/17 11:27 76 02/17/17 11:21 72 02/17/17 08:00 77 16 150/58 91 L 02/17/17 07:56 80 02/17/17 07:20 76 02/17/17 04:00 97.0 F L 77 18 142/74 93 L 02/17/17 00:00 98.0 F 80 18 153/70 95 02/16/17 23:46 98 02/16/17 23:35 98 02/16/17 23:13 97.5 F L 74 18 164/67 99 02/16/17 23:11 84 02/16/17 23:04 78 02/16/17 22:55 79 18 173/74 98 02/16/17 22:44 72 18 165/70 6 L 02/16/17 21:24 74 18 151/63 98 02/16/17 20:14 22 02/16/17 20:02 99.1 F 81 20 167/69 92 L Intake and Output 02/17/17 02/17/17 02/17/17 06:59 14:59 22:59 Intake Total 180 Output Total 500 Balance -500 180 Intake: Oral 180 Output: Urine 500 Other: Voiding Method Diaper Diaper # Voids 2 Weight 109.5 kg Patient is currently sleepy and but is not in any acute distress Vital signs are reviewed Head ENT negative Neck supple no significant increase in jugular venous pressure is noted. Heart. Since second heart sounds are normal no significant murmurs are noted. Lungs reveal bilateral scattered wheezes Abdomen is soft Extremities there is no evidence of any significant leg edema Chest x-ray is suggestive congestive cardiac failure EKG does not show any acute ischemic changes Results 02/16/17 20:08 02/16/17 20:08 Cardiac Enzymes 02/16/17 02/16/17 02/17/17 Range/Units 20:08 20:08 08:45 AST 22 (17-59) U/L CK-MB (CK-2) 1.7 (0.0-2.4) ng/mL Troponin I 0.030 0.065 H* (0.000-0.034) ng/mL Coagulation 02/16/17 Range/Units 20:08 PT 10.6 (9.0-12.0) sec APTT 24.4 (22.0-30.0) sec CBC 02/16/17 Range/Units 20:08 WBC 9.7 (3.8-10.6) k/uL RBC 4.39 (4.30-5.90) m/uL Hgb 13.9 (13.0-17.5) gm/dL Hct 41.7 (39.0-53.0) % Plt Count 177 (150-450) k/uL Comprehensive Metabolic Panel 02/16/17 Range/Units 20:08 Sodium 140 (137-145) mmol/L Potassium 4.5 (3.5-5.1) mmol/L Chloride 102 (98-107) mmol/L Carbon Dioxide 31 H (22-30) mmol/L BUN 23 H (9-20) mg/dL Creatinine 0.87 (0.66-1.25) mg/dL Glucose 120 H (74-99) mg/dL Calcium 8.4 (8.4-10.2) mg/dL AST 22 (17-59) U/L ALT 20 L (21-72) U/L Alkaline Phosphatase 71 (38-126) U/L Total Protein 5.4 L (6.3-8.2) g/dL Albumin 2.8 L (3.5-5.0) g/dL Current Medications Generic Name Dose Route Start Last Admin Trade Name Freq PRN Reason Stop Dose Admin Albuterol/Ipratropium 3 ml 02/17/17 08:00 02/17/17 11:19 Duoneb 0.5 Mg-3 Mg/3 Ml Soln INHALATION 3 ml RT-QID MICHAEL Administration Albuterol/Ipratropium 3 ml 02/16/17 23:50 Duoneb 0.5 Mg-3 Mg/3 Ml Soln INHALATION RT-Q2H PRN Shortness Of Breath Or Wheezing Artificial Tears 1 drops 02/17/17 08:50 Artificial Tear Drops BOTH EYES TID PRN Dry Eye(s) Atorvastatin Calcium 40 mg 02/17/17 21:00 Lipitor PO HS MICHAEL Cholecalciferol 2,000 unit 02/17/17 12:00 02/17/17 12:58 Vitamin D3 PO 2,000 unit 1200 MICHAEL Administration Citalopram Hydrobromide 40 mg 02/17/17 09:00 02/17/17 12:59 Celexa PO 40 mg QAM MICHAEL Administration Famotidine 20 mg 02/17/17 09:00 02/17/17 12:59 Pepcid PO 20 mg QAM MICHAEL Administration Folic Acid 1 mg 02/17/17 12:00 02/17/17 12:58 Folic Acid PO 1 mg 1200 MICHAEL Administration Furosemide 40 mg 02/17/17 09:00 02/17/17 13:00 Lasix IV 40 mg Q12H MICHAEL Administration Lisinopril 40 mg 02/17/17 09:00 02/17/17 12:58 Zestril PO 40 mg QAM MICHAEL Administration Magnesium Oxide 400 mg 02/17/17 09:00 02/17/17 12:59 Mag-Ox PO 400 mg BID MICHAEL Administration Risperidone 1 mg 02/17/17 09:00 02/17/17 12:58 Risperdal PO 1 mg QAM MICHAEL Administration Intake and Output 02/17/17 02/17/17 02/17/17 06:59 14:59 22:59 Intake Total 180 Output Total 500 Balance -500 180 Intake: Oral 180 Output: Urine 500 Other: Voiding Method Diaper Diaper # Voids 2 Weight 109.5 kg 02/16/17 20:08 02/16/17 20:08 EKG Interpretations (text) EKG does not show any acute ischemic changes Assessment and Plan Plan: This patient is admitted with change in the mental status and acute respiratory distress possibly secondary to combination of her acute congestive heart failure is acute exacerbation of COPD he do echo and Doppler study to assess the left ventricular systolic function BNP would be done we will continue IV Lasix at present.
[2017-02-17 17:04] LABS: Glucose,Whole Blood 152 mg/dL (75-99)
--- NOTE | 2017-02-17 17:05 | ECHOF ---
Referral Reason:chf MEASUREMENTS -------- HEIGHT: 152.4 cm WEIGHT: 109.3 kg BP: 142/74 IVSd: 1.3 cm (0.6 - 1.1) LVIDd: 5.7 cm (3.9 - 5.3) LVPWd: 1.4 cm (0.6 - 1.1) IVSs: 1.6 cm LVIDs: 3.7 cm LVPWs: 2.1 cm LA Diam: 4.9 cm (2.7 - 3.8) Ao Diam: 3.6 cm (2.0 - 3.7) AV Cusp: 1.5 cm (1.5 - 2.6) LA Diam: 3.8 cm (2.7 - 3.8) MV EXCURSION: 19.436 mm (> 18.000) MV EF SLOPE: 146 mm/s (70 - 150) EPSS: 1.7 cm MV E Reji: 1.28 m/s MV DecT: 160 ms MV A Reji: 0.59 m/s MV E/A Ratio: 2.19 FINDINGS -------- Undetermined rhythm. This was a technically adequate study. There is mild concentric left ventricular hypertrophy. Overall left ventricular systolic function is low-normal with, an EF between 50 - 55 %. Mitral Doppler inflow pattern suggests diastolic filling abnormality 13.14. The right ventricle is normal in size. The left atrial size is normal. The right atrial size is normal. There is mild aortic valve sclerosis. There is no evidence of aortic regurgitation. Mild mitral annular calcification present. Mild mitral regurgitation is present. Mild tricuspid regurgitation present. There is mild pulmonary hypertension. The right ventricular systolic pressure, as measured by Doppler, is {RVSP}. There is no pulmonic regurgitation present. The aortic root size is normal. There is no pericardial effusion. CONCLUSIONS -------- 1. There is mild concentric left ventricular hypertrophy. 2. The aortic root size is normal. 3. There is no pericardial effusion. 4. Overall left ventricular systolic function is low-normal with, an EF between 50 - 55 %. 5. Mitral Doppler inflow pattern suggest diastolic filling abnormality 13.14. 6. There is mild aortic valve sclerosis. 7. Mild mitral annular calcification present. 8. Mild mitral regurgitation is present. 9. Mild tricuspid regurgitation present. 10. There is mild pulmonary hypertension. 11. The right ventricular systolic pressure, as measured by Doppler, is {RVSP}. [employer] CASHIER: Jennifer Muñoz RDCS
[2017-02-17] MEDS: ATORVASTATIN 40 MG TAB PO SCH (20:52)
[2017-02-17 21:03] LABS: Glucose,Whole Blood 171 mg/dL (75-99)
[2017-02-18 03:36] LABS: Glucose,Whole Blood 183 mg/dL (75-99)
[2017-02-18 05:52] LABS: Glucose,Whole Blood 238 mg/dL (75-99)
[2017-02-18 06:39] LABS: Basophils % (A) 1 %; CH 30.4; CHCM 31.3; Eosinophils # (A) 0.2 k/uL (0-0.7); Eosinophils % (A) 2 %; HCT 42.7 % (39.0-53.0); HDW 2.63; Hypochromasia Slight; Luc # (Auto) 0.18; Luc % (Auto) 2; Lymphocytes # (A) 1.6 k/uL (1.0-4.8); Lymphocytes % (A) 19 %; MCHC 32.8 g/dL (31.0-37.0); MCV 97.5 fL (80.0-100.0); Monocytes # (A) 0.7 k/uL (0-1.0); Monocytes % (A) 9 %; Neutrophils # (A) 5.4 k/uL (1.3-7.7); Neutrophils % (A) 67 %; RBC 4.37 m/uL (4.30-5.90); WBC (Perox) 8.41
[2017-02-18 06:49] LABS: ALT 24 U/L (21-72); AST 22 U/L (17-59); Alkaline Phosphatase 74 U/L (38-126); Anion Gap 7 mmol/L; Blood Urea Nitrogen 29 mg/dL (9-20); Calcium 8.7 mg/dL (8.4-10.2); Carbon Dioxide 32 mmol/L (22-30); Chloride 100 mmol/L (98-107); Glucose 244 mg/dL (74-99); Non-African American GFR(MDRD) >60 (>60 ml/min/1.73 sqM); Potassium 4.4 mmol/L (3.5-5.1); Sodium 139 mmol/L (137-145); Total Bilirubin 0.9 mg/dL (0.2-1.3); Total Protein 5.6 g/dL (6.3-8.2)
[2017-02-18] MEDS: IPRATROPIUM-ALBUTEROL 3 ML NEB INHALATION SCH ×4 (07:04→21:14)
[2017-02-18] MEDS: FUROSEMIDE 10 MG/ML 4 ML VIAL IV SCH ×2 (09:45→21:34)
[2017-02-18] MEDS: FAMOTIDINE 20 MG TAB PO SCH (09:46)
[2017-02-18] MEDS: MAGNESIUM OXIDE 400 MG TAB PO SCH ×2 (09:46→21:34)
[2017-02-18] MEDS: risperiDONE 1 MG TAB PO SCH (09:46)
[2017-02-18] MEDS: LISINOPRIL 20 MG TAB PO SCH (09:46)
[2017-02-18] MEDS: CITALOPRAM HYDROBROMIDE 20 MG TAB PO SCH (09:46)
[2017-02-18 10:39] VITALS: BMI 34.1
[2017-02-18] MEDS: FOLIC ACID 1 MG TAB PO SCH (11:53)
[2017-02-18] MEDS: CHOLECALCIFEROL 1,000 UNIT TAB PO SCH (11:56)
[2017-02-18 12:06] LABS: Glucose,Whole Blood 264 mg/dL (75-99)
--- NOTE | 2017-02-18 14:46 | P.PN ---
Subjective This is a pleasant 71-year-old gentleman who presented to the emergency department with change in mental status and hypoxia from an extended care facility. Found to have congestive cardiac failure. He's been seeking Lasix 40 mg IV push every 12 hours. He appears to be breathing better today. He is much more awake and alert. He is sitting up in a chair at the bedside without many complaints. Objective - Vital Signs Vital signs: Vital Signs Temp 98.2 F 02/18/17 04:00 Pulse 80 02/18/17 11:35 Resp 20 02/18/17 04:00 BP 153/75 02/18/17 04:00 Pulse Ox 96 02/18/17 04:00 Intake & Output 02/17/17 02/18/17 02/18/17 18:59 06:59 18:59 Intake Total 180 120 360 Output Total 350 Balance 180 -230 360 Weight 108 kg 108 kg Intake: Oral 180 120 360 Output: Urine 350 Other: Voiding Method Diaper Diaper # Voids 1 2 3 - Exam PHYSICAL EXAMINATION: HEENT: Head is atraumatic, normocephalic. Pupils equal, round. Neck is supple. There is no elevated jugular venous pressure. HEART EXAMINATION: Heart sounds regular, S1 and S2 normal. No murmur or gallop heard. CHEST EXAMINATION: Lungs feel diminished air entry bilaterally with faint crackles in the bases. No chest wall tenderness is noted on palpation or with deep breathing. ABDOMEN: Soft, nontender. Bowel sounds are heard. No organomegaly noted. EXTREMITIES: 2+ peripheral pulses with evidence of mild peripheral edema and no calf tenderness noted. NEUROLOGIC patient is awake, alert and oriented x2. . - Labs CBC & Chem 7: 02/18/17 05:54 02/18/17 05:54 Labs: Abnormal Lab Results - Last 24 Hours (Table) 02/17/17 02/17/17 02/17/17 Range/Units 14:41 16:55 20:36 Carbon Dioxide (22-30) mmol/L BUN (9-20) mg/dL Glucose (74-99) mg/dL POC Glucose (mg/dL) 152 H (75-99) mg/dL Troponin I 0.043 H* 0.041 H* (0.000-0.034) ng/mL Total Protein (6.3-8.2) g/dL Albumin (3.5-5.0) g/dL 02/17/17 02/18/17 02/18/17 Range/Units 21:02 03:35 05:50 Carbon Dioxide (22-30) mmol/L BUN (9-20) mg/dL Glucose (74-99) mg/dL POC Glucose (mg/dL) 171 H 183 H 238 H (75-99) mg/dL Troponin I (0.000-0.034) ng/mL Total Protein (6.3-8.2) g/dL Albumin (3.5-5.0) g/dL 02/18/17 02/18/17 Range/Units 05:54 12:03 Carbon Dioxide 32 H (22-30) mmol/L BUN 29 H (9-20) mg/dL Glucose 244 H (74-99) mg/dL POC Glucose (mg/dL) 264 H (75-99) mg/dL Troponin I (0.000-0.034) ng/mL Total Protein 5.6 L (6.3-8.2) g/dL Albumin 2.9 L (3.5-5.0) g/dL Microbiology - Last 24 Hours (Table) 02/16/17 22:27 Urine Culture - Final Urine,Catheterized Assessment and Plan Plan: Assessment and plan #1 altered mental status #2 acute respiratory distress secondary to combination of acute and chronic diastolic congestive heart failure and acute exacerbation of COPD #3 acute on chronic diastolic congestive heart failure #4 acute exacerbation of COPD From cardiology's perspective, medications were reviewed and will continue the same at this time. We will repeat chest x-ray in the morning and follow the patient's renal function. Further recommendations to follow. DISTRICT ADVISER note has been reviewed, I agree with a documented findings and plan of care. Patient was seen and examined.
[2017-02-18 17:14] LABS: Glucose,Whole Blood 232 mg/dL (75-99)
[2017-02-18] MEDS: INSULIN LISPRO (humaLOG) 300 UNIT/3 ML VIAL SQ SCH (17:28)
[2017-02-18 21:05] LABS: Glucose,Whole Blood 212 mg/dL (75-99)
[2017-02-18] MEDS: ATORVASTATIN 40 MG TAB PO SCH (21:34)
[2017-02-18] MEDS: INSULIN GLARGINE 100 UNIT/ML 10 ML VIAL SQ SCH (21:34)
[2017-02-19 06:14] LABS: Glucose,Whole Blood 206 mg/dL (75-99)
[2017-02-19] MEDS: INSULIN LISPRO (humaLOG) 300 UNIT/3 ML VIAL SQ SCH ×3 (07:20→17:15)
[2017-02-19 07:40] LABS: ALT 23 U/L (21-72); AST 20 U/L (17-59); Alkaline Phosphatase 76 U/L (38-126); Anion Gap 7 mmol/L; Blood Urea Nitrogen 30 mg/dL (9-20); Calcium 8.8 mg/dL (8.4-10.2); Carbon Dioxide 36 mmol/L (22-30); Chloride 97 mmol/L (98-107); Glucose 209 mg/dL (74-99); Non-African American GFR(MDRD) >60 (>60 ml/min/1.73 sqM); Potassium 4.3 mmol/L (3.5-5.1); Sodium 140 mmol/L (137-145); Total Bilirubin 0.9 mg/dL (0.2-1.3); Total Protein 5.8 g/dL (6.3-8.2)
[2017-02-19] MEDS: MAGNESIUM OXIDE 400 MG TAB PO SCH ×2 (08:13→22:30)
[2017-02-19] MEDS: FUROSEMIDE 10 MG/ML 4 ML VIAL IV SCH ×2 (08:13→22:30)
[2017-02-19] MEDS: CITALOPRAM HYDROBROMIDE 20 MG TAB PO SCH (08:13)
[2017-02-19] MEDS: FAMOTIDINE 20 MG TAB PO SCH (08:13)
[2017-02-19] MEDS: risperiDONE 1 MG TAB PO SCH (08:13)
[2017-02-19] MEDS: LISINOPRIL 20 MG TAB PO SCH (08:13)
[2017-02-19] MEDS: IPRATROPIUM-ALBUTEROL 3 ML NEB INHALATION SCH ×4 (09:11→20:23)
[2017-02-19] MEDS: FOLIC ACID 1 MG TAB PO SCH (11:57)
[2017-02-19] MEDS: CHOLECALCIFEROL 1,000 UNIT TAB PO SCH (11:57)
[2017-02-19 12:25] LABS: Glucose,Whole Blood 167 mg/dL (75-99)
[2017-02-19 16:43] LABS: Glucose,Whole Blood 205 mg/dL (75-99)
--- NOTE | 2017-02-19 17:38 | P.CRDCN ---
History of Present Illness Consult date: 02/19/17 History of present illness: Patient was admitted with altered mental status and CHF. Patient seemed to be more alert. Doesn't appear to be in acute distress. He is tolerating Lasix dose fairly well. Patient will continue current medical therapy. Follow-up in 6 months Past Medical History Past Medical History: Asthma, Diabetes Mellitus, Hyperlipidemia, Hypertension, Pneumonia Additional Past Medical History / Comment(s): ECZEMA, HAS SOME BLOCKAGE TO CAROTIDS NOT SURE WHAT %, PT STATED HIS BODY MAKES TOO MUCH BLOOD THEY HAD TO TAKE BLOOD FROM HIM, CENTRAL RETINAL VEIN OCCLUSION LT EYE. History of Any Multi-Drug Resistant Organisms: None Reported Past Surgical History: Tonsillectomy Additional Past Surgical History / Comment(s): neck surgery-DISC SX AND HAS A CADAVIER BONE , LT EYE CATARACT, LT EYE-RETINAL SX, RT HAND PINKY FINGER HAD CRUSHING INJURY-SX TO REPAIR. Past Anesthesia/Blood Transfusion Reactions: No Reported Reaction Past Psychological History: Anxiety Smoking Status: Former smoker Past Alcohol Use History: None Reported Past Drug Use History: None Reported - Past Family History Father Family Medical History: COPD Mother Family Medical History: Coronary Artery Disease (CAD), Myocardial Infarction ([place] ) Medications and Allergies Home Medications Medication Instructions Recorded Confirmed Type Atorvastatin [Lipitor] 40 mg PO HS 11/22/16 02/16/17 History Citalopram Hydrobromide [CeleXA] 40 mg PO QAM 11/22/16 02/16/17 History Famotidine [Pepcid] 20 mg PO QAM 11/22/16 02/16/17 History Folic Acid 1 mg PO QAM 11/22/16 02/16/17 History Insulin Glargine,Hum.rec.anlog 80 unit SQ HS 11/22/16 02/16/17 History [Lantus Solostar] Insulin Lispro [humaLOG Kwikpen] 14 unit SQ TID-W/MEALS 11/22/16 02/16/17 History Lisinopril [Zestril] 40 mg PO QAM 11/22/16 02/16/17 History Magnesium Oxide [Mag-Ox] 400 mg PO BID 11/22/16 02/16/17 History risperiDONE [RisperDAL] 1 mg PO QAM 11/22/16 02/16/17 History Carboxymethylcellulose Sodium 1 drop BOTH EYES TID PRN 02/16/17 02/16/17 History [Refresh Tears] Cholecalciferol (Vitamin D3) 2,000 unit PO QAM 02/16/17 02/16/17 History [Vitamin D3] Allergies Allergy/AdvReac Type Severity Reaction Status Date / Time No Known Allergies Allergy Verified 11/22/16 09:10 Physical Exam Vitals: Vital Signs Temp Pulse Pulse Resp BP Pulse Ox 02/19/17 16:31 90 02/19/17 16:17 88 02/19/17 16:00 98.0 F 78 18 144/72 95 02/19/17 13:06 88 02/19/17 12:56 88 02/19/17 12:00 98.6 F 75 18 104/59 92 L 02/19/17 09:23 88 02/19/17 09:11 88 02/19/17 08:00 96.9 F L 86 18 163/78 91 L 02/19/17 04:00 97.0 F L 85 18 156/63 96 02/19/17 00:00 97.3 F L 78 18 136/65 97 02/18/17 20:00 97.0 F L 80 18 137/48 96 Intake and Output 02/19/17 02/19/17 02/19/17 06:59 14:59 22:59 Intake Total 240 Balance 240 Intake: Oral 240 Other: Voiding Method Diaper Diaper Diaper # Voids 2 0 # Bowel Movements 0 Weight 108.3 kg Results 02/18/17 05:54 02/19/17 06:42 Cardiac Enzymes 02/19/17 Range/Units 06:42 AST 20 (17-59) U/L Comprehensive Metabolic Panel 02/19/17 Range/Units 06:42 Sodium 140 (137-145) mmol/L Potassium 4.3 (3.5-5.1) mmol/L Chloride 97 L (98-107) mmol/L Carbon Dioxide 36 H (22-30) mmol/L BUN 30 H (9-20) mg/dL Creatinine 0.76 (0.66-1.25) mg/dL Glucose 209 H (74-99) mg/dL Calcium 8.8 (8.4-10.2) mg/dL AST 20 (17-59) U/L ALT 23 (21-72) U/L Alkaline Phosphatase 76 (38-126) U/L Total Protein 5.8 L (6.3-8.2) g/dL Albumin 2.9 L (3.5-5.0) g/dL Current Medications Generic Name Dose Route Start Last Admin Trade Name Freq PRN Reason Stop Dose Admin Albuterol/Ipratropium 3 ml 02/17/17 08:00 02/19/17 16:16 Duoneb 0.5 Mg-3 Mg/3 Ml Soln INHALATION 3 ml RT-QID MICHAEL Administration Albuterol/Ipratropium 3 ml 02/16/17 23:50 Duoneb 0.5 Mg-3 Mg/3 Ml Soln INHALATION RT-Q2H PRN Shortness Of Breath Or Wheezing Artificial Tears 1 drops 02/17/17 08:50 Artificial Tear Drops BOTH EYES TID PRN Dry Eye(s) Atorvastatin Calcium 40 mg 02/17/17 21:00 02/18/17 21:34 Lipitor PO 40 mg HS MICHAEL Administration Cholecalciferol 2,000 unit 02/17/17 12:00 02/19/17 11:57 Vitamin D3 PO 2,000 unit 1200 MICHAEL Administration Citalopram Hydrobromide 40 mg 02/17/17 09:00 02/19/17 08:13 Celexa PO 40 mg QAM MICHAEL Administration Famotidine 20 mg 02/17/17 09:00 02/19/17 08:13 Pepcid PO 20 mg QAM MICHAEL Administration Folic Acid 1 mg 02/17/17 12:00 02/19/17 11:57 Folic Acid PO 1 mg 1200 MICHAEL Administration Furosemide 40 mg 02/17/17 09:00 02/19/17 08:13 Lasix IV 40 mg Q12H MICHAEL Administration Insulin Glargine 60 unit 02/18/17 21:00 02/18/17 21:34 Lantus SQ 60 unit HS MICHAEL Administration Insulin Human Lispro 10 unit 02/18/17 17:30 02/19/17 17:15 Humalog SQ 10 unit AC-TID MICHAEL Administration Lisinopril 40 mg 02/17/17 09:00 02/19/17 08:13 Zestril PO 40 mg QAM MICHAEL Administration Magnesium Oxide 400 mg 02/17/17 09:00 02/19/17 08:13 Mag-Ox PO 400 mg BID MICHAEL Administration Risperidone 1 mg 02/17/17 09:00 02/19/17 08:13 Risperdal PO 1 mg QAM MICHAEL Administration Intake and Output 02/19/17 02/19/17 02/19/17 06:59 14:59 22:59 Intake Total 240 Balance 240 Intake: Oral 240 Other: Voiding Method Diaper Diaper Diaper # Voids 2 0 # Bowel Movements 0 Weight 108.3 kg 02/18/17 05:54 02/19/17 06:42 Assessment and Plan (1) Altered mental state Status: Acute (2) Acute exacerbation of chronic obstructive airways disease Status: Acute (3) Acute pulmonary edema Status: Acute (4) Diabetes mellitus Status: Acute (5) Elevated troponin Status: Acute Plan: This patient is responding to current medical therapy. We'll keep a close eye on a urinary output. He was seen by primary care physician. Within next 24-48 hours, medication could be rearranged. Prognosis guarded
--- NOTE | 2017-02-19 20:29 | XR ---
EXAMINATION TYPE: XR chest 2V DATE OF EXAM: 02/19/2017 COMPARISON: NONE HISTORY: Shortness of breath TECHNIQUE: Frontal and lateral views of the chest are obtained. FINDINGS: Scattered senescent parenchymal changes noted. Hyperinflation compatible with COPD. Improving pulmonary venous congestion and pleural effusions. Heart size is normal eyes. Mediastinal structures are stable and grossly unremarkable. No evidence for hilar prominence. Degenerative changes dorsal spine. IMPRESSION: 1. Improving features of congestive failure.
[2017-02-19 21:03] LABS: Glucose,Whole Blood 216 mg/dL (75-99)
[2017-02-19] MEDS: ATORVASTATIN 40 MG TAB PO SCH (22:30)
[2017-02-19] MEDS: INSULIN GLARGINE 100 UNIT/ML 10 ML VIAL SQ SCH (22:30)
[2017-02-20 06:27] LABS: Glucose,Whole Blood 181 mg/dL (75-99)
[2017-02-20 07:01] LABS: ALT 25 U/L (21-72); AST 17 U/L (17-59); Alkaline Phosphatase 65 U/L (38-126); Anion Gap 6 mmol/L; Blood Urea Nitrogen 38 mg/dL (9-20); Calcium 8.4 mg/dL (8.4-10.2); Carbon Dioxide 37 mmol/L (22-30); Chloride 96 mmol/L (98-107); Glucose 178 mg/dL (74-99); Non-African American GFR(MDRD) >60 (>60 ml/min/1.73 sqM); Potassium 4.3 mmol/L (3.5-5.1); Sodium 139 mmol/L (137-145); Total Bilirubin 0.9 mg/dL (0.2-1.3); Total Protein 5.5 g/dL (6.3-8.2)
[2017-02-20] MEDS: INSULIN LISPRO (humaLOG) 300 UNIT/3 ML VIAL SQ SCH ×3 (07:03→17:32)
[2017-02-20] MEDS: IPRATROPIUM-ALBUTEROL 3 ML NEB INHALATION SCH ×4 (07:39→19:38)
[2017-02-20] MEDS: CITALOPRAM HYDROBROMIDE 20 MG TAB PO SCH (08:25)
[2017-02-20] MEDS: FUROSEMIDE 10 MG/ML 4 ML VIAL IV SCH ×2 (08:25→21:45)
[2017-02-20] MEDS: MAGNESIUM OXIDE 400 MG TAB PO SCH ×2 (08:26→21:45)
[2017-02-20] MEDS: LISINOPRIL 20 MG TAB PO SCH (08:27)
[2017-02-20] MEDS: FAMOTIDINE 20 MG TAB PO SCH (08:28)
[2017-02-20] MEDS: risperiDONE 1 MG TAB PO SCH (08:28)
[2017-02-20] MEDS: CHOLECALCIFEROL 1,000 UNIT TAB PO SCH (11:25)
[2017-02-20] MEDS: FOLIC ACID 1 MG TAB PO SCH (11:25)
--- NOTE | 2017-02-20 11:49 | P.PN ---
Subjective Principal diagnosis: chf less dyspnea and no chest pain Objective - Vital Signs Vital signs: Vital Signs Temp 97.6 F 02/20/17 08:10 Pulse 88 02/20/17 11:32 Resp 18 02/20/17 08:10 BP 138/83 02/20/17 08:10 Pulse Ox 91 L 02/20/17 08:10 Intake & Output 02/19/17 02/20/17 02/20/17 18:59 06:59 18:59 Intake Total 360 Output Total 300 Balance 360 -300 Weight 106.3 kg Intake: Oral 360 Output: Urine 300 Other: Voiding Method Diaper Urinal Urinal Diaper Diaper # Voids 1 2 # Bowel Movements 1 - Constitutional General appearance: Present: morbidly obese - EENT Eyes: Present: PERRLA ENT: Present: hearing grossly normal - Neck Neck: Present: normal ROM - Respiratory Respiratory: bilateral: diminished, rhonchi - Cardiovascular Rhythm: regular Heart sounds: normal: S1, S2 - Peripheral edema ankle Peripheral Edema: bilateral: 1+ - Gastrointestinal General gastrointestinal: Present: soft - Labs CBC & Chem 7: 02/18/17 05:54 02/20/17 06:21 Labs: Abnormal Lab Results - Last 24 Hours (Table) 02/19/17 02/19/17 02/19/17 Range/Units 12:01 16:40 20:58 Chloride (98-107) mmol/L Carbon Dioxide (22-30) mmol/L BUN (9-20) mg/dL Glucose (74-99) mg/dL POC Glucose (mg/dL) 167 H 205 H 216 H (75-99) mg/dL Total Protein (6.3-8.2) g/dL Albumin (3.5-5.0) g/dL 02/20/17 02/20/17 Range/Units 06:12 06:21 Chloride 96 L (98-107) mmol/L Carbon Dioxide 37 H (22-30) mmol/L BUN 38 H (9-20) mg/dL Glucose 178 H (74-99) mg/dL POC Glucose (mg/dL) 181 H (75-99) mg/dL Total Protein 5.5 L (6.3-8.2) g/dL Albumin 2.8 L (3.5-5.0) g/dL Assessment and Plan (1) Altered mental state Status: Acute (2) Asthma exacerbation in COPD Status: Acute (3) Congestive heart failure Status: Acute (4) Acute exacerbation of chronic obstructive airways disease Status: Acute (5) Acute pulmonary edema Status: Acute (6) Diabetes mellitus Status: Acute Plan: optimise fluid status with gentle diuresis,increase activity and advance diet.MEDS and labs were reviewed
[2017-02-20 11:53] LABS: Glucose,Whole Blood 129 mg/dL (75-99)
[2017-02-20 16:58] LABS: Glucose,Whole Blood 175 mg/dL (75-99)
[2017-02-20 21:00] LABS: Glucose,Whole Blood 147 mg/dL (75-99)
[2017-02-20] MEDS: INSULIN GLARGINE 100 UNIT/ML 10 ML VIAL SQ SCH (21:45)
[2017-02-20] MEDS: ATORVASTATIN 40 MG TAB PO SCH (21:45)
[2017-02-21 06:15] LABS: Glucose,Whole Blood 166 mg/dL (75-99)
[2017-02-21] MEDS: INSULIN LISPRO (humaLOG) 300 UNIT/3 ML VIAL SQ SCH ×3 (07:03→17:18)
[2017-02-21] MEDS: IPRATROPIUM-ALBUTEROL 3 ML NEB INHALATION SCH ×4 (08:39→20:05)
[2017-02-21] MEDS: CITALOPRAM HYDROBROMIDE 20 MG TAB PO SCH (08:49)
[2017-02-21] MEDS: FAMOTIDINE 20 MG TAB PO SCH (08:49)
[2017-02-21] MEDS: MAGNESIUM OXIDE 400 MG TAB PO SCH ×2 (08:50→21:32)
[2017-02-21] MEDS: risperiDONE 1 MG TAB PO SCH (08:50)
[2017-02-21] MEDS: FUROSEMIDE 10 MG/ML 4 ML VIAL IV SCH (08:50)
[2017-02-21 12:09] LABS: Glucose,Whole Blood 136 mg/dL (75-99)
[2017-02-21] MEDS: LISINOPRIL 20 MG TAB PO SCH (12:23)
[2017-02-21] MEDS: CHOLECALCIFEROL 1,000 UNIT TAB PO SCH (12:23)
[2017-02-21] MEDS: FOLIC ACID 1 MG TAB PO SCH (12:24)
--- NOTE | 2017-02-21 12:46 | P.PN ---
Subjective Principal diagnosis: chf less dyspnea and no chest pain Objective - Vital Signs Vital signs: Vital Signs Temp 99.1 F 02/21/17 11:33 Pulse 75 02/21/17 11:33 Resp 20 02/21/17 11:33 BP 155/76 02/21/17 11:33 Pulse Ox 95 02/21/17 11:33 Intake & Output 02/20/17 02/21/17 02/21/17 18:59 06:59 18:59 Intake Total 837 Output Total 5 Balance 832 Weight 104.7 kg Intake: Oral 837 Output: Urine 5 Other: Voiding Method Urinal Urinal Urinal Diaper Diaper Diaper # Voids 1 1 - Respiratory Respiratory: bilateral: diminished - Cardiovascular Rhythm: regular Heart sounds: normal: S1, S2 - Labs CBC & Chem 7: 02/18/17 05:54 02/20/17 06:21 Labs: Abnormal Lab Results - Last 24 Hours (Table) 02/20/17 02/20/17 02/21/17 Range/Units 16:47 20:50 06:10 POC Glucose (mg/dL) 175 H 147 H 166 H (75-99) mg/dL 02/21/17 Range/Units 11:48 POC Glucose (mg/dL) 136 H (75-99) mg/dL Assessment and Plan (1) Altered mental state Status: Acute (2) Asthma exacerbation in COPD Status: Acute (3) Congestive heart failure Status: Acute (4) Acute exacerbation of chronic obstructive airways disease Status: Acute (5) Acute pulmonary edema Status: Acute (6) Diabetes mellitus Status: Acute Plan: optimise fluid status with gentle diuresis,increase activity and advance diet.MEDS and labs were reviewed Switch to oral meds and discharge planning for tomorrow
[2017-02-21] MEDS: FUROSEMIDE 40 MG TAB PO SCH (16:40)
[2017-02-21 17:05] LABS: Glucose,Whole Blood 165 mg/dL (75-99)
[2017-02-21 20:46] LABS: Glucose,Whole Blood 154 mg/dL (75-99)
[2017-02-21] MEDS: ATORVASTATIN 40 MG TAB PO SCH (21:32)
[2017-02-21] MEDS: INSULIN GLARGINE 100 UNIT/ML 10 ML VIAL SQ SCH (21:32)
[2017-02-22 05:46] LABS: Glucose,Whole Blood 107 mg/dL (75-99)
[2017-02-22] MEDS: INSULIN LISPRO (humaLOG) 300 UNIT/3 ML VIAL SQ SCH ×3 (07:14→17:19)
[2017-02-22] MEDS: LISINOPRIL 20 MG TAB PO SCH (08:13)
[2017-02-22] MEDS: MAGNESIUM OXIDE 400 MG TAB PO SCH ×2 (08:14→21:28)
[2017-02-22] MEDS: CITALOPRAM HYDROBROMIDE 20 MG TAB PO SCH (08:14)
[2017-02-22] MEDS: FAMOTIDINE 20 MG TAB PO SCH (08:14)
[2017-02-22] MEDS: FUROSEMIDE 40 MG TAB PO SCH ×2 (08:14→17:19)
[2017-02-22] MEDS: risperiDONE 1 MG TAB PO SCH (08:14)
[2017-02-22] MEDS: IPRATROPIUM-ALBUTEROL 3 ML NEB INHALATION SCH ×4 (09:05→19:53)
[2017-02-22 12:07] LABS: Glucose,Whole Blood 105 mg/dL (75-99)
[2017-02-22] MEDS: FOLIC ACID 1 MG TAB PO SCH (12:21)
[2017-02-22] MEDS: CHOLECALCIFEROL 1,000 UNIT TAB PO SCH (12:21)
--- NOTE | 2017-02-22 13:01 | P.DS ---
Providers Date of admission: 02/16/17 22:44 Expected date of discharge: 02/23/17 Attending physician: Lukas Aviles Consults: 02/16/17 22:44 Consult Physician Routine Consulting Provider: Jeramy Yun Consult Reason/Comments: chf Do you want consulting provider notified?: Yes Primary care physician: Lukas Aviles [facility] Course: 71-year-old male looking older than stated age was transferred from the [facility]. The EMS system after patient was noted to be experiencing altered mental status. Patient is a poor historian and is unable to give accurate history at this time. History is been obtained from reviewing prior medical records and nursing staff in the ER record no family at the bedside when asking patient the vitals in the emergency room showed a temp of 99.1 heart rate in the 80s blood pressure 167/69 and on sats were documented 92% . The chest x-ray obtained suggest heart failure with pulmonary edema white count 9.7 electrolytes within normal limits blood glucose in the emergency room 92 currently patient is sitting up temp is 97 and on 2 L nasal cannula sats are documented 92% when questioning patient patient is stating he is not having any shortness of breath is denying chest pain A cardiology consultation was requested. Patient was started on IV Lasix and did diurese with a noted improvement in patient's pulmonary and respiratory status. Patient denied chest pain. Patient did have an echocardiogram done it did show left ventricular systolic function low normal with an EF between 50 and 55% mild pulmonary hypertension and mild LVH. Cardiology indicated there was no further cardiac workup at this time Physical and occupational therapy did participate in the plan of care. Patient was felt to be appropriate candidate for a rehab to increase patient's endurance a pulmonary consultation was requested patient was treated for an acute exacerbation of asthma with COPD started on IV site Medrol taper to oral prednisone Patient was felt to be hemodynamically stable and appropriate to transfer to [facility] when bed was available Impression Present on admission acute encephalopathy unclear etiology Present on admission acute hypoxic respiratory failure suspect due to acute exacerbation heart failure diastolic dysfunction EF 50-55% with mild pulmonary hypertension with mild left ventricular hypertrophy Chronic debility uses a walker Type 2 diabetes insulin requiring controlled hemoglobin A1c 6 Depressive disorder nonspecified Mildly elevated troponin present on admission was no evidence of an acute coronary syndrome Acute exacerbation of COPD Acute exacerbation of persistent asthma Acute pulmonary edema The above impression and plan of care have been discussed and directed by signing physician. Suzanne Smith nurse practitioner acting as scribe for signing physician. Patient Condition at Discharge: Fair Plan - Discharge Summary New Discharge Prescriptions: New Ipratropium-Albuterol Nebulize [Duoneb 0.5 mg-3 mg/3 ml Soln] 3 ml INHALATION RT-QID neb Furosemide [Lasix] 40 mg PO BID@0900,1600 #60 tab Continue Lisinopril [Zestril] 40 mg PO QAM risperiDONE [RisperDAL] 1 mg PO QAM Magnesium Oxide [Mag-Ox] 400 mg PO BID Famotidine [Pepcid] 20 mg PO QAM Insulin Glargine,Hum.rec.anlog [Lantus Solostar] 80 unit SQ HS Atorvastatin [Lipitor] 40 mg PO HS Insulin Lispro [humaLOG Kwikpen] 14 unit SQ TID-W/MEALS Folic Acid 1 mg PO QAM Citalopram Hydrobromide [CeleXA] 40 mg PO QAM Cholecalciferol (Vitamin D3) [Vitamin D3] 2,000 unit PO QAM Carboxymethylcellulose Sodium [Refresh Tears] 1 drop BOTH EYES TID PRN PRN Reason: Dry Eye(S) Discharge Medication List Atorvastatin [Lipitor] 40 mg PO HS 11/22/16 [History] Citalopram Hydrobromide [CeleXA] 40 mg PO QAM 11/22/16 [History] Famotidine [Pepcid] 20 mg PO QAM 11/22/16 [History] Folic Acid 1 mg PO QAM 11/22/16 [History] Insulin Glargine,Hum.rec.anlog [Lantus Solostar] 80 unit SQ HS 11/22/16 [History ] Insulin Lispro [humaLOG Kwikpen] 14 unit SQ TID-W/MEALS 11/22/16 [History] Lisinopril [Zestril] 40 mg PO QAM 11/22/16 [History] Magnesium Oxide [Mag-Ox] 400 mg PO BID 11/22/16 [History] risperiDONE [RisperDAL] 1 mg PO QAM 11/22/16 [History] Carboxymethylcellulose Sodium [Refresh Tears] 1 drop BOTH EYES TID PRN 02/16/17 [History] Cholecalciferol (Vitamin D3) [Vitamin D3] 2,000 unit PO QAM 02/16/17 [History] Furosemide [Lasix] 40 mg PO BID@0900,1600 #60 tab 02/22/17 [Rx] Ipratropium-Albuterol Nebulize [Duoneb 0.5 mg-3 mg/3 ml Soln] 3 ml INHALATION RT -QID neb 02/22/17 [Rx] Follow up Appointment(s)/Referral(s): Lukas Aviles MD [Primary Care Provider] - 1-[address] [facility] [place], [NON-STAFF] - 1 Week Discharge Disposition: TRANSFER TO SNF/ECF
--- NOTE | 2017-02-22 13:03 | P.PN ---
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 Suzanne Smith nurse practitioner acting as scribe for signing physician.
[2017-02-22 16:44] LABS: Glucose,Whole Blood 107 mg/dL (75-99)
[2017-02-22 20:35] LABS: Glucose,Whole Blood 119 mg/dL (75-99)
[2017-02-22] MEDS: ATORVASTATIN 40 MG TAB PO SCH (21:28)
[2017-02-22] MEDS: INSULIN GLARGINE 100 UNIT/ML 10 ML VIAL SQ SCH (21:29)
[2017-02-22 23:06] VITALS: RESP 16
[2017-02-23 07:15] LABS: Glucose,Whole Blood 83 mg/dL (75-99)
[2017-02-23 07:27] VITALS: BP 144/57; TEMP 97.6
[2017-02-23] MEDS: IPRATROPIUM-ALBUTEROL 3 ML NEB INHALATION SCH ×2 (07:34→11:14)
[2017-02-23] MEDS: MAGNESIUM OXIDE 400 MG TAB PO SCH (08:09)
[2017-02-23] MEDS: FAMOTIDINE 20 MG TAB PO SCH (08:09)
[2017-02-23] MEDS: CITALOPRAM HYDROBROMIDE 20 MG TAB PO SCH (08:09)
[2017-02-23] MEDS: risperiDONE 1 MG TAB PO SCH (08:09)
[2017-02-23] MEDS: FUROSEMIDE 40 MG TAB PO SCH (08:09)
[2017-02-23] MEDS: LISINOPRIL 20 MG TAB PO SCH (08:09)
[2017-02-23] MEDS: INSULIN LISPRO (humaLOG) 300 UNIT/3 ML VIAL SQ SCH ×2 (08:10→13:15)
[2017-02-23 11:17] VITALS: PULSE 78
[2017-02-23 12:15] LABS: Glucose,Whole Blood 219 mg/dL (75-99)
--- NOTE | 2017-02-25 14:20 | PN ---
DATE OF SERVICE: 02/17/2017 CHIEF COMPLAINT: Mental status changes. Dehydration. Diabetes. Renal failure. HISTORY OF PRESENT ILLNESS: This gentleman has improved slightly. He is rehydrated and renal function seems to be improved. PHYSICAL EXAM: Chest is clear. Cardiac exam is normal. Abdomen is protuberant and soft. He is still a little bit lethargic. IMPRESSION: 1. Dehydration. 2. Mental status changes. 3. Prerenal azotemia. 4. Chronic renal failure. 5. Uncontrolled diabetes mellitus. PLAN: Continue with rehydration and slowly progress activity and diet. [facility]
--- NOTE | 2017-02-25 14:27 | HP ---
DATE OF ADMISSION: 02/16/2017 CHIEF COMPLAINT: Mental status changes, congestive heart failure, dehydration and renal failure. HISTORY OF PRESENT ILLNESS: This is another admission for this 71 year old white male. He comes in from the [place]. History cannot be easily obtained due to his lethargy. He apparently was brought over because of generalized weakness and failure to thrive as well as confusion. REVIEW OF SYSTEMS: Unobtainable. PAST MEDICAL HISTORY, FAMILY HISTORY, PERSONAL AND SOCIAL HISTORY: Not reliably obtained. PHYSICAL EXAMINATION: Blood pressure 136/74. Pulse 79. Respirations of 32. He is afebrile. In general he appeared to be lethargic, dehydrated, and in no acute distress. Skin was dry as were mucous membranes. Head, ears, eyes, nose, mouth and throat were otherwise normal and gaze conjugate. Neck veins not distended. Carotids normal. Chest demonstrates shallow breath sounds and cardiac exam demonstrated sinus rhythm with no murmurs. Abdomen slightly protuberant, soft, nontender. There were no masses or visceromegaly. Extremities were normal. IMPRESSION: 1. Mental status changes. 2. Dehydration. 3. Prerenal azotemia. 4. Renal failure. 5. Uncontrolled diabetes mellitus. 6. History of chronic obstructive pulmonary disease. PLAN: 1. Bed rest. 2. IV fluids. 3. Follow kidney function closely. 4. Start to work on a discharge plan. He probably will not be able to go back to the [place]. [facility]
--- NOTE | 2017-02-25 14:38 | PN ---
DATE OF SERVICE: 02/18/2017 CHIEF COMPLAINT: Renal failure, dehydration, prerenal azotemia, diabetes. HISTORY OF PRESENT ILLNESS: This gentleman is doing fairly well but he is still weak and renal function is starting to improve slightly. PHYSICAL EXAM: Chest is clear. Cardiac exam is normal. Abdomen soft and nontender. Extremities normal. IMPRESSION: 1. Prerenal azotemia. 2. Dehydration. 3. Chronic renal failure. 4. Diabetes mellitus. PLAN: Continue IV fluid and continue monitoring his renal function as well as diabetes. [facility]
--- NOTE | 2017-02-25 14:41 | PN ---
DATE OF SERVICE: 02/19/2017 CHIEF COMPLAINT: Prerenal azotemia. HISTORY OF PRESENT ILLNESS: This gentleman is doing better. He is stronger and he is a little bit more alert. He is eating solid foods and is able to ambulate. PHYSICAL EXAM: Cardiac exam is normal. Chest is clear. Abdomen soft and nontender. His mentation is improving. IMPRESSION: 1. Dehydration. 2. Prerenal azotemia. 3. Renal failure. 4.Diabetes. PLAN: Continue on the current program and work on discharge plan. [facility]
== END 2017-02-23 13:15 | DRG 291 ==
LOC: EC 20:01 → 6SEL 22:44 → 4MS4W 02-22 12:36 → UNDODISIN 02-22 17:09
PROVIDERS: ADMIT Family Medicine; ATTEND Family Medicine
DX: I11.0 Hypertensive heart disease with heart failure (principal); G93.40 Encephalopathy, unspecified; J44.1 Chronic obstructive pulmonary disease with (acute) exacerbation; J45.901 Unspecified asthma with (acute) exacerbation; I27.2 Other secondary pulmonary hypertension; E11.9 Type 2 diabetes mellitus without complications; F32.9 Major depressive disorder, single episode, unspecified; I50.33 Acute on chronic diastolic (congestive) heart failure; F41.9 Anxiety disorder, unspecified; E78.5 Hyperlipidemia, unspecified; L30.9 Dermatitis, unspecified; Z98.42 Cataract extraction status, left eye; Z87.891 Personal history of nicotine dependence; Z79.4 Long term (current) use of insulin; Z79.899 Other long term (current) drug therapy; Z82.49 Family history of ischemic heart disease and other diseases of the circulatory system; Z82.5 Family history of asthma and other chronic lower respiratory diseases
CPT/HCPCS: 36415; 71020; 76770; 80053; 81001; 82550; 82553; 83036; 83605; 83735; 83880; 84100; 84443; 84484; 85025; 85610; 85730; 87086; 93005; 93306; 94640; 94760

== ENCOUNTER 2017-09-08 09:41 | Inpatient (IN) | payer MEDICARE ==
[2017-09-08] MEDS ORDERED: IPRATROPIUM 0.5 MG/2.5 ML NEBU INHALATION STA (10:01)
[2017-09-08] MEDS ORDERED: methylPREDNISolone SOD SUCCI 125 MG/2 ML VIAL IV STA (10:01)
[2017-09-08] MEDS ORDERED: SODIUM CHLORIDE 0.9% 1,000 ML IV STA (10:01)
[2017-09-08] MEDS ORDERED: ALBUTEROL NEBULIZED 2.5 MG/3 ML INHALATION STA (10:01)
[2017-09-08 10:30] LABS: Basophils % (A) 0 %; Eosinophils # (A) 0.4 k/uL (0-0.7); Eosinophils % (A) 4 %; HCT 40.7 % (39.0-53.0); HGB 12.7 gm/dL (13.0-17.5); Hypochromasia Moderate; Lymphocytes # (A) 1.8 k/uL (1.0-4.8); Lymphocytes % (A) 18 %; MCH 30.3 pg (25.0-35.0); MCHC 31.1 g/dL (31.0-37.0); MCV 97.1 fL (80.0-100.0); Mean Platelet Volume 8.2; Monocytes # (A) 0.8 k/uL (0-1.0); Monocytes % (A) 8 %; Neutrophils # (A) 6.9 k/uL (1.3-7.7); Neutrophils % (A) 69 %; Platelet Count 209 k/uL (150-450); RBC 4.19 m/uL (4.30-5.90); RDW 14.9 % (11.5-15.5)
--- NOTE | 2017-09-08 10:32 | XR ---
EXAMINATION TYPE: XR chest 1V portable DATE OF EXAM: 09/08/2017 COMPARISON: Prior chest x-ray 02/19/2017 HISTORY: Pain TECHNIQUE: Single frontal view of the chest is obtained. FINDINGS: Interstitium and central vascularity are prominent. There is obscured left hemidiaphragm, retrocardiac density is noted. No evident pneumothorax. Heart size may be accentuated by rotation, th ere are overlying cardiac leads. IMPRESSION: Correlate for congestive heart failure with possible associated effusion. Follow-up is r ecommended.
[2017-09-08 10:39] LABS: ALT 27 U/L (21-72); AST 19 U/L (17-59); Albumin 2.8 g/dL (3.5-5.0); Alkaline Phosphatase 69 U/L (38-126); Anion Gap 5 mmol/L; Blood Urea Nitrogen 36 mg/dL (9-20); Calcium 8.8 mg/dL (8.4-10.2); Carbon Dioxide 36 mmol/L (22-30); Chloride 102 mmol/L (98-107); Glucose 59 mg/dL (74-99); Magnesium 2.5 mg/dL (1.6-2.3); Potassium 4.4 mmol/L (3.5-5.1); Sodium 143 mmol/L (137-145); Total Bilirubin 0.4 mg/dL (0.2-1.3); Total Protein 5.5 g/dL (6.3-8.2)
[2017-09-08 10:41] LABS: INR 1.1 (<1.2); Prothrombin Time 10.5 sec (9.0-12.0)
--- NOTE | 2017-09-08 10:49 | ED ---
General Adult HPI - General Chief complaint: Shortness of Breath Stated complaint: ABDOMINAL PAIN, DIZZINESS Time Seen by Provider: 09/08/17 09:54 Source: patient, family, RN notes reviewed, old records reviewed Mode of arrival: wheelchair - History of Present Illness Initial comments: This is a 72-year-old male to the ER for evaluation. This patient presents today for evaluation of CHF, COPD. Patient has significant shortness of breath with cough or congestion, patient's family can't patient's extended facility today noticed to be hypoxic, staff also noted to be hypoxic despite therapy there. Patient complains of shortness of breath denies pain. No chest pain. He states he's been taking all medications as prescribed - Related Data Home Medications Medication Instructions Recorded Confirmed Atorvastatin [Lipitor] 40 mg PO HS 11/22/16 09/08/17 Citalopram Hydrobromide [CeleXA] 40 mg PO QAM 11/22/16 09/08/17 Insulin Glargine,Hum.rec.anlog 70 unit SQ HS 11/22/16 09/08/17 [Lantus Solostar] Insulin Lispro [humaLOG Kwikpen] 14 unit SQ TID-W/MEALS 11/22/16 09/08/17 Lisinopril [Zestril] 40 mg PO QAM 11/22/16 09/08/17 Magnesium Oxide [Mag-Ox] 400 mg PO BID 11/22/16 09/08/17 Carboxymethylcellulose Sodium 1 drop BOTH EYES TID PRN 02/16/17 09/08/17 [Refresh Tears] Cholecalciferol (Vitamin D3) 2,000 unit PO QAM 02/16/17 09/08/17 [Vitamin D3] Carvedilol [Coreg] 12.5 mg PO BID 09/08/17 09/08/17 Ipratropium-Albuterol Nebulize 3 ml INHALATION RT-TID 09/08/17 09/08/17 [Duoneb 0.5 mg-3 mg/3 ml Soln] Melatonin 10 mg PO HS 09/08/17 09/08/17 risperiDONE [RisperDAL] 0.5 mg PO DAILY 09/08/17 09/08/17 Previous Rx's Medication Instructions Recorded Furosemide [Lasix] 40 mg PO BID@0900,1600 #60 tab 02/22/17 Allergies Allergy/AdvReac Type Severity Reaction Status Date / Time No Known Allergies Allergy Verified 09/08/17 10:30 Review of Systems ROS Statement: Those systems with pertinent positive or pertinent negative responses have been documented in the HPI. ROS Other: All systems not noted in ROS Statement are negative. Past Medical History Past Medical History: Asthma, Diabetes Mellitus, Hyperlipidemia, Hypertension, Pneumonia Additional Past Medical History / Comment(s): ECZEMA, HAS SOME BLOCKAGE TO CAROTIDS NOT SURE WHAT %, PT STATED HIS BODY MAKES TOO MUCH BLOOD THEY HAD TO TAKE BLOOD FROM HIM, CENTRAL RETINAL VEIN OCCLUSION LT EYE. History of Any Multi-Drug Resistant Organisms: None Reported Past Surgical History: Tonsillectomy Additional Past Surgical History / Comment(s): neck surgery-DISC SX AND HAS A CADAVIER BONE , LT EYE CATARACT, LT EYE-RETINAL SX, RT HAND PINKY FINGER HAD CRUSHING INJURY-SX TO REPAIR. Past Anesthesia/Blood Transfusion Reactions: No Reported Reaction Past Psychological History: Anxiety Smoking Status: Former smoker Past Alcohol Use History: None Reported Past Drug Use History: None Reported - Past Family History Father Family Medical History: COPD Mother Family Medical History: Coronary Artery Disease (CAD), Myocardial Infarction ([place] ) General Exam General appearance: alert, anxious, in distress Head exam: Present: atraumatic, normocephalic, normal inspection Eye exam: Present: normal appearance, PERRL, EOMI. Absent: scleral icterus, conjunctival injection, periorbital swelling ENT exam: Present: normal exam, mucous membranes moist Neck exam: Present: normal inspection. Absent: tenderness, meningismus, lymphadenopathy Respiratory exam: Present: respiratory distress, wheezes, accessory muscle use, decreased breath sounds, prolonged expiratory. Absent: rales, rhonchi, stridor Cardiovascular Exam: Present: regular rate, normal rhythm, normal heart sounds. Absent: systolic murmur, diastolic murmur, rubs, gallop, clicks GI/Abdominal exam: Present: soft, normal bowel sounds. Absent: distended, tenderness, guarding, rebound, rigid Extremities exam: Present: normal inspection, full ROM, normal capillary refill. Absent: tenderness, pedal edema, joint swelling, calf tenderness Back exam: Present: normal inspection Neurological exam: Present: alert, oriented X3, CN II-XII intact Psychiatric exam: Present: normal affect, normal mood Skin exam: Present: warm, dry, intact, normal color. Absent: rash Course Vital Signs 09/08/17 09/08/17 09/08/17 09:51 10:06 10:08 Temperature 97.9 F Pulse Rate 63 51 L Respiratory 26 H 18 Rate Blood Pressure 134/68 O2 Sat by Pulse 88 L Oximetry 09/08/17 09/08/17 09/08/17 10:29 10:46 10:48 Temperature Pulse Rate 58 L 56 L 54 L Respiratory 16 Rate Blood Pressure 157/62 O2 Sat by Pulse 99 Oximetry - Reevaluation(s) Reevaluation #1: 09/08/17 11:58 Patient could benefit from BiPAP, he states he is feeling okay at this time but he does have significant shortness of breath Reevaluation #2: 09/08/17 11:58 Patient states she does feel like he did improve significantly with breathing treatment EKG Findings - EKG Comments: EKG Findings:: EKG shows undetermined rhythm rate of 58, QRS 92, QTc 457 Medical Decision Making - Medical Decision Making 72 male the ER significant shortness of breath cough, and inability to lay flat , decreased activity level, patient has CHF COPD. Patient will be admitted for breathing treatments and diuresis - Lab Data Result diagrams: 09/08/17 10:05 09/08/17 10:05 Lab Results 09/08/17 09/08/17 09/08/17 Range/Units 10:05 10:05 10:05 WBC 10.0 (3.8-10.6) k/uL RBC 4.19 L (4.30-5.90) m/uL Hgb 12.7 L (13.0-17.5) gm/dL Hct 40.7 (39.0-53.0) % MCV 97.1 (80.0-100.0) fL MCH 30.3 (25.0-35.0) pg MCHC 31.1 (31.0-37.0) g/dL RDW 14.9 (11.5-15.5) % Plt Count 209 (150-450) k/uL Neutrophils % 69 % Lymphocytes % 18 % Monocytes % 8 % Eosinophils % 4 % Basophils % 0 % Neutrophils # 6.9 (1.3-7.7) k/uL Lymphocytes # 1.8 (1.0-4.8) k/uL Monocytes # 0.8 (0-1.0) k/uL Eosinophils # 0.4 (0-0.7) k/uL Basophils # 0.0 (0-0.2) k/uL Hypochromasia Moderate PT (9.0-12.0) sec INR (<1.2) APTT (22.0-30.0) sec Sodium 143 (137-145) mmol/L Potassium 4.4 (3.5-5.1) mmol/L Chloride 102 (98-107) mmol/L Carbon Dioxide 36 H (22-30) mmol/L Anion Gap 5 mmol/L BUN 36 H (9-20) mg/dL Creatinine 1.02 (0.66-1.25) mg/dL Est GFR (MDRD) Af Amer >60 (>60 ml/min/1.73 sqM) Est GFR (MDRD) Non-Af >60 (>60 ml/min/1.73 sqM) Glucose 59 L (74-99) mg/dL Calcium 8.8 (8.4-10.2) mg/dL Magnesium 2.5 H (1.6-2.3) mg/dL Total Bilirubin 0.4 (0.2-1.3) mg/dL AST 19 (17-59) U/L ALT 27 (21-72) U/L Alkaline Phosphatase 69 (38-126) U/L Total Creatine Kinase 34 L (55-170) U/L CK-MB (CK-2) 1.1 (0.0-2.4) ng/mL CK-MB (CK-2) Rel Index 3.2 Troponin I 0.018 (0.000-0.034) ng/mL NT-Pro-B Natriuret Pep pg/mL Total Protein 5.5 L (6.3-8.2) g/dL Albumin 2.8 L (3.5-5.0) g/dL 09/08/17 09/08/17 Range/Units 10:05 10:05 WBC (3.8-10.6) k/uL RBC (4.30-5.90) m/uL Hgb (13.0-17.5) gm/dL Hct (39.0-53.0) % MCV (80.0-100.0) fL MCH (25.0-35.0) pg MCHC (31.0-37.0) g/dL RDW (11.5-15.5) % Plt Count (150-450) k/uL Neutrophils % % Lymphocytes % % Monocytes % % Eosinophils % % Basophils % % Neutrophils # (1.3-7.7) k/uL Lymphocytes # (1.0-4.8) k/uL Monocytes # (0-1.0) k/uL Eosinophils # (0-0.7) k/uL Basophils # (0-0.2) k/uL Hypochromasia PT 10.5 (9.0-12.0) sec INR 1.1 (<1.2) APTT 25.0 (22.0-30.0) sec Sodium (137-145) mmol/L Potassium (3.5-5.1) mmol/L Chloride (98-107) mmol/L Carbon Dioxide (22-30) mmol/L Anion Gap mmol/L BUN (9-20) mg/dL Creatinine (0.66-1.25) mg/dL Est GFR (MDRD) Af Amer (>60 ml/min/1.73 sqM) Est GFR (MDRD) Non-Af (>60 ml/min/1.73 sqM) Glucose (74-99) mg/dL Calcium (8.4-10.2) mg/dL Magnesium (1.6-2.3) mg/dL Total Bilirubin (0.2-1.3) mg/dL AST (17-59) U/L ALT (21-72) U/L Alkaline Phosphatase (38-126) U/L Total Creatine Kinase (55-170) U/L CK-MB (CK-2) (0.0-2.4) ng/mL CK-MB (CK-2) Rel Index Troponin I (0.000-0.034) ng/mL NT-Pro-B Natriuret Pep 4740 pg/mL Total Protein (6.3-8.2) g/dL Albumin (3.5-5.0) g/dL - Radiology Data Radiology results: report reviewed (Chest x-rays positive for CHF), image reviewed Critical Care Time Critical Care Time: Yes Total Critical Care Time: 31 Disposition Clinical Impression: Acute exacerbation of chronic obstructive airways disease, Congestive heart failure, Acute pulmonary edema, Hypoxia Disposition: ADMITTED IP TO THIS HOSP Condition: Serious Referrals: Lukas Aviles MD [Primary Care Provider] - 1-2 days
[2017-09-08 11:16] LABS: Creatine Kinase MB 1.1 ng/mL (0.0-2.4); Troponin I 0.018 ng/mL (0.000-0.034)
--- NOTE | 2017-09-08 13:05 | P.CNPUL ---
History of Present Illness Consult date: 09/08/17 Reason for consult: dyspnea, cough, COPD Chief complaint: Shortness of breath progressive along with cough congestion and started 2-3 History of present illness: Mr. Bennett has not been doing well for the last 1 week with slow onset of progressive increased shortness were also started having cough congestion and difficulty in breathing patient does have a history of severe COPD emphysema also has history of congestive heart failure and diabetes with due to progressive respiratory difficulty decided to come into emergency department for further evaluation and intervention and treatment assess were noted to be on the lower side on arrival patient has been admitted into the hospital for further evaluation Review of Systems All systems: negative Past Medical History Past Medical History: Asthma, Diabetes Mellitus, Hyperlipidemia, Hypertension, Pneumonia Additional Past Medical History / Comment(s): ECZEMA, HAS SOME BLOCKAGE TO CAROTIDS NOT SURE WHAT %, PT STATED HIS BODY MAKES TOO MUCH BLOOD THEY HAD TO TAKE BLOOD FROM HIM, CENTRAL RETINAL VEIN OCCLUSION LT EYE. History of Any Multi-Drug Resistant Organisms: None Reported Past Surgical History: Tonsillectomy Additional Past Surgical History / Comment(s): neck surgery-DISC SX AND HAS A CADAVIER BONE , LT EYE CATARACT, LT EYE-RETINAL SX, RT HAND PINKY FINGER HAD CRUSHING INJURY-SX TO REPAIR. Past Anesthesia/Blood Transfusion Reactions: No Reported Reaction Past Psychological History: Anxiety Smoking Status: Former smoker Past Alcohol Use History: None Reported Past Drug Use History: None Reported - Past Family History Father Family Medical History: COPD Mother Family Medical History: Coronary Artery Disease (CAD), Myocardial Infarction ([place] ) Medications and Allergies Home Medications Medication Instructions Recorded Confirmed Type Atorvastatin [Lipitor] 40 mg PO HS 11/22/16 09/08/17 History Citalopram Hydrobromide [CeleXA] 40 mg PO QAM 11/22/16 09/08/17 History Insulin Glargine,Hum.rec.anlog 70 unit SQ HS 11/22/16 09/08/17 History [Lantus Solostar] Insulin Lispro [humaLOG Kwikpen] 14 unit SQ TID-W/MEALS 11/22/16 09/08/17 History Lisinopril [Zestril] 40 mg PO QAM 11/22/16 09/08/17 History Magnesium Oxide [Mag-Ox] 400 mg PO BID 11/22/16 09/08/17 History Carboxymethylcellulose Sodium 1 drop BOTH EYES TID PRN 02/16/17 09/08/17 History [Refresh Tears] Cholecalciferol (Vitamin D3) 2,000 unit PO QAM 02/16/17 09/08/17 History [Vitamin D3] Furosemide [Lasix] 40 mg PO BID@0900,1600 #60 tab 02/22/17 09/08/17 Rx Carvedilol [Coreg] 12.5 mg PO BID 09/08/17 09/08/17 History Ipratropium-Albuterol Nebulize 3 ml INHALATION RT-TID 09/08/17 09/08/17 History [Duoneb 0.5 mg-3 mg/3 ml Soln] Melatonin 10 mg PO HS 09/08/17 09/08/17 History risperiDONE [RisperDAL] 0.5 mg PO DAILY 09/08/17 09/08/17 History Allergies Allergy/AdvReac Type Severity Reaction Status Date / Time No Known Allergies Allergy Verified 09/08/17 10:30 Physical Exam Vitals: Vital Signs Temp Pulse Resp BP Pulse Ox 09/08/17 10:48 54 L 16 157/62 99 09/08/17 10:46 56 L 09/08/17 10:29 58 L 09/08/17 10:08 51 L 09/08/17 10:06 18 09/08/17 09:51 97.9 F 63 26 H 134/68 88 L Intake and Output 09/07/17 09/08/17 09/08/17 22:59 06:59 14:59 Other: Weight 106.594 kg Patient Weight 09/09/17 06:59 Weight 106.594 kg General appearance: alert, anxious, in distress Head exam: Present: atraumatic, normocephalic, normal inspection Eye exam: Present: normal appearance, PERRL, EOMI. Absent: scleral icterus, conjunctival injection, periorbital swelling ENT exam: Present: normal exam, mucous membranes moist Neck exam: Present: normal inspection. Absent: tenderness, meningismus, lymphadenopathy Respiratory exam: Present: respiratory distress, wheezes, accessory muscle use, decreased breath sounds, prolonged expiratory. Absent: rales, rhonchi, stridor Cardiovascular Exam: Present: regular rate, normal rhythm, normal heart sounds. Absent: systolic murmur, diastolic murmur, rubs, gallop, clicks GI/Abdominal exam: Present: soft, normal bowel sounds. Absent: distended, tenderness, guarding, rebound, rigid Extremities exam: Present: normal inspection, full ROM, normal capillary refill. Absent: tenderness, pedal edema, joint swelling, calf tenderness Back exam: Present: normal inspection Neurological exam: Present: alert, oriented X3, CN II-XII intact Psychiatric exam: Present: normal affect, normal mood Skin exam: Present: warm, dry, intact, normal color. Absent: rash Results - Laboratory Findings CBC and BMP: 09/08/17 10:05 09/08/17 10:05 PT/INR, D-dimer PT 10.5 sec (9.0-12.0) 09/08/17 10:05 INR 1.1 (<1.2) 09/08/17 10:05 Abnormal lab findings: Abnormal Labs 09/08/17 09/08/17 09/08/17 10:05 10:05 10:05 RBC 4.19 L Hgb 12.7 L Carbon Dioxide 36 H BUN 36 H Glucose 59 L Magnesium 2.5 H Total Creatine Kinase 34 L Total Protein 5.5 L Albumin 2.8 L - Diagnostic Findings Chest x-ray: report reviewed, image reviewed (Suggestive of fluid overload and congestive heart failure, occult pneumonia cannot be excluded) Assessment and Plan Assessment: Acute hypoxic respiratory failure related to acute exacerbation of COPD Acute exacerbation of CHF likely acute on chronic diastolic heart failure Severe COPD Hypertension hypertensive cardiovascular disease Purulent tracheobronchitis Plan: Continue breathing treatment with nebulizer therapy, along with the steroid, we' ll resume home medication change Lasix to IV 40 every 12 obtain echocardiogram we will initiate antibiotics in the form of IV Rocephin as well Time with Patient: Greater than 30
[2017-09-08 13:32] VITALS: BMI 33.7
[2017-09-08] MEDS: FUROSEMIDE 10 MG/ML 4 ML VIAL IV SCH ×2 (13:48→20:21)
--- NOTE | 2017-09-08 13:58 | P.CRDCN ---
History of Present Illness Consult date: 09/08/17 History of present illness: Mr. Bennett is a pleasant 72-year-old male past medical history significant for diastolic heart failure, COPD, diabetes mellitus, hypertension, dyslipidemia and former tobacco use from [id number]. He denies history of coronary artery disease and has never followed with a gasateria attendant as an outpatient. We have been asked to see him in consultation for symptoms suggestive of heart failure. He states for the previous few weeks he has been increasingly short of breath, especially with mild exertion. He is finding himself sleeping more propped up as well. He denies chest pain, palpitations, dizziness or nausea/vomiting. He has no symptoms suggestive of unstable angina. At the time of my exam he is seen sitting in bed in mild respiratory distress. Apparently there was consideration of bipap in ED. EKG on arrival is poor quality but no acute ST or T-wave abnormalities appreciated. Will attempt repeat once breathing has stabilized. Chest xray reveals congestive heart failure with possible associated effusion. Laboratory date reviewed, hgb 12.7, magnesium 2.5, potassium 4.4, creatinine 1.02, proBNP 4740, troponin 0.018 Current cardiac medications include lisinopril 40 mg daily, Lasix 40 mg twice a day, carvedilol 12.5 mg twice a day, and atorvastatin 40 mg daily. Most recent echocardiogram performed 2016 reveals mildly decreased left ventricular systolic function with ejection fraction 50-55%, diastolic filling abnormality, left ventricular hypertrophy, mild aortic valve sclerosis, mild MR , TR and pulmonary hypertension. Review of Systems CONSTITUTIONAL: Denies fever. Denies chills. EYES: Denies blurred vision. Denies vision changes. Denies eye pain. EARS, NOSE, MOUTH & THROAT: Denies headache. Denies sore throat. Denies ear pain. CARDIOVASCULAR: Denies chest pain. Complains of exertional and rest shortness of breath with orthopnea. Denies PND. Denies palpitations. RESPIRATORY: Denies cough. GASTROINTESTINAL: Denies abdominal pain. Denies diarrhea. Denies constipation. Denies nausea. Denies vomiting. MUSCULOSKELETAL: Denies myalgias. INTEGUMENTARY: Denies pruitis. Denies rash. NEUROLOGIC: Denies numbness. Denies tingling. Denies weakness. PSYCHIATRIC: Denies anxiety. Denies depression. ENDOCRINE: Denies fatigue. Denies weight change. Denies polydipsia. Denies polyurina. GENITOURINARY: Denies burning, hematuria or urgency with micturation. HEMATOLOGIC: Denies history of anemia. Denies bleeding. Past Medical History Past Medical History: Asthma, Heart Failure, COPD, Diabetes Mellitus, Eye Disorder, Hyperlipidemia, Hypertension, Pneumonia Additional Past Medical History / Comment(s): Polycythemia vera with phlebotomies, L eye central retinal vein occlusion, IDDM type II, pt denies R carotid artery disease but was documented in past medical record. History of Any Multi-Drug Resistant Organisms: None Reported Past Surgical History: Orthopedic Surgery, Tonsillectomy Additional Past Surgical History / Comment(s): Cervical surgery-DISC SX / CADAVIER BONE , LT EYE CATARACT, LT EYE-RETINAL SX, RT HAND PINKY FINGER HAD CRUSHING INJURY-SX TO REPAIR, colonoscopy. Past Anesthesia/Blood Transfusion Reactions: No Reported Reaction Smoking Status: Former smoker - Past Family History Father Family Medical History: COPD Mother Family Medical History: Coronary Artery Disease (CAD), Myocardial Infarction ([place] ) Medications and Allergies Home Medications Medication Instructions Recorded Confirmed Type Atorvastatin [Lipitor] 40 mg PO HS 11/22/16 09/08/17 History Citalopram Hydrobromide [CeleXA] 40 mg PO QAM 11/22/16 09/08/17 History Insulin Glargine,Hum.rec.anlog 70 unit SQ HS 11/22/16 09/08/17 History [Lantus Solostar] Insulin Lispro [humaLOG Kwikpen] 14 unit SQ TID-W/MEALS 11/22/16 09/08/17 History Lisinopril [Zestril] 40 mg PO QAM 11/22/16 09/08/17 History Magnesium Oxide [Mag-Ox] 400 mg PO BID 11/22/16 09/08/17 History Carboxymethylcellulose Sodium 1 drop BOTH EYES TID PRN 02/16/17 09/08/17 History [Refresh Tears] Cholecalciferol (Vitamin D3) 2,000 unit PO QAM 02/16/17 09/08/17 History [Vitamin D3] Furosemide [Lasix] 40 mg PO BID@0900,1600 #60 tab 02/22/17 09/08/17 Rx Carvedilol [Coreg] 12.5 mg PO BID 09/08/17 09/08/17 History Ipratropium-Albuterol Nebulize 3 ml INHALATION RT-TID 09/08/17 09/08/17 History [Duoneb 0.5 mg-3 mg/3 ml Soln] Melatonin 10 mg PO HS 09/08/17 09/08/17 History risperiDONE [RisperDAL] 0.5 mg PO DAILY 09/08/17 09/08/17 History Allergies Allergy/AdvReac Type Severity Reaction Status Date / Time No Known Allergies Allergy Verified 09/08/17 10:30 Physical Exam Vitals: Vital Signs Temp Pulse Resp BP Pulse Ox 09/08/17 13:18 98.1 F 70 18 167/62 95 09/08/17 10:48 54 L 16 157/62 99 09/08/17 10:46 56 L 09/08/17 10:29 58 L 09/08/17 10:08 51 L 09/08/17 10:06 18 09/08/17 09:51 97.9 F 63 26 H 134/68 88 L Intake and Output 09/07/17 09/08/17 09/08/17 22:59 06:59 14:59 Other: Weight 106.594 kg Patient Weight 09/09/17 06:59 Weight 106.594 kg Blood pressure 157/62 heart rate 54 afebrile GENERAL: This is a 72-year-old male in no apparent distress at the time of my examination. Obese. HEENT: Head is atraumatic, normocephalic. Pupils are equal, round. Sclerae anicteric. Conjunctivae are clear. Mucous membranes of the mouth are moist. Neck is supple. There is no jugular venous distention. No carotid bruit is heard. LUNGS: No wheezes or rhonchi. Faint bibasilar rales. No chest wall tenderness is noted on palpation or with deep breathing. HEART: Regular rate and rhythm with faint systolic ejection murmurs no rubs or gallops. S1 and S2 heard. ABDOMEN: Soft, nontender. Bowel sounds are heard. No organomegaly noted. EXTREMITIES: 2+ pretibial edema right greater than left and no calf tenderness noted. VASCULAR: Radial and dorsalis pedis pulses palpated, no evidence of clubbing. NEUROLOGIC: Patient is awake, alert and oriented x3. Results 09/08/17 10:05 09/08/17 10:05 Cardiac Enzymes 09/08/17 09/08/17 Range/Units 10:05 10:05 AST 19 (17-59) U/L CK-MB (CK-2) 1.1 (0.0-2.4) ng/mL Troponin I 0.018 (0.000-0.034) ng/mL Coagulation 09/08/17 Range/Units 10:05 PT 10.5 (9.0-12.0) sec APTT 25.0 (22.0-30.0) sec CBC 09/08/17 Range/Units 10:05 WBC 10.0 (3.8-10.6) k/uL RBC 4.19 L (4.30-5.90) m/uL Hgb 12.7 L (13.0-17.5) gm/dL Hct 40.7 (39.0-53.0) % Plt Count 209 (150-450) k/uL Comprehensive Metabolic Panel 09/08/17 Range/Units 10:05 Sodium 143 (137-145) mmol/L Potassium 4.4 (3.5-5.1) mmol/L Chloride 102 (98-107) mmol/L Carbon Dioxide 36 H (22-30) mmol/L BUN 36 H (9-20) mg/dL Creatinine 1.02 (0.66-1.25) mg/dL Glucose 59 L (74-99) mg/dL Calcium 8.8 (8.4-10.2) mg/dL AST 19 (17-59) U/L ALT 27 (21-72) U/L Alkaline Phosphatase 69 (38-126) U/L Total Protein 5.5 L (6.3-8.2) g/dL Albumin 2.8 L (3.5-5.0) g/dL Current Medications Generic Name Dose Route Start Last Admin Trade Name Freq PRN Reason Stop Dose Admin Albuterol/Ipratropium 3 ml 09/08/17 16:00 Duoneb 0.5 Mg-3 Mg/3 Ml Soln INHALATION RT-QID MICHAEL Ceftriaxone Sodium 1,000 mg 09/09/17 09:00 Rocephin IVP Q24HR MICHAEL Furosemide 40 mg 09/08/17 12:30 Lasix IV Q8H MICHAEL Sodium Chloride 1,000 mls @ 100 mls/hr 09/08/17 10:01 09/08/17 10:17 Saline 0.9% IV 09/08/17 20:00 100 mls/hr .Q10H STA Administration Methylprednisolone Sodium Succinate 60 mg 09/08/17 18:00 Solu-Medrol IV Q6HR MICHAEL Intake and Output 09/07/17 09/08/17 09/08/17 22:59 06:59 14:59 Other: Weight 106.594 kg Patient Weight 09/09/17 06:59 Weight 106.594 kg 09/08/17 10:05 09/08/17 10:05 Assessment and Plan Assessment: ASSESSMENT 1. Acute on chronic exacerbation of diastolic heart failure 2. Essential hypertension 3. COPD 4. Diabetes mellitus PLAN Obtain 2-D echocardiogram and Doppler study to assess cardiac structure and function. Repeat EKG in the morning. Continue with IV Lasix 40 TID. Strict intake and output recordings with daily weights. Continue atorvastatin, lisinopril and Coreg as previously ordered dosages. Ongoing telemetry monitoring to rule out arrhythmia. Further recommendations will be based upon clinical course. Thank you kindly for this consultation. The above impression and plan of care have been discussed and directed by the signing physician. Roseanna Laird, nurse practitioner, acting as scribe for signing physician.
[2017-09-08] MEDS: LISINOPRIL 20 MG TAB PO SCH (14:49)
[2017-09-08 15:31] LABS: Glucose,Whole Blood 132 mg/dL (75-99)
[2017-09-08] MEDS: IPRATROPIUM-ALBUTEROL 3 ML NEB INHALATION SCH ×2 (15:44→21:31)
[2017-09-08 17:22] LABS: Glucose,Whole Blood 222 mg/dL (75-99)
--- NOTE | 2017-09-08 17:29 | ECHOF ---
Referral Reason:shorntess of breath MEASUREMENTS -------- HEIGHT: 152.4 cm WEIGHT: 106.6 kg BP: RVIDd: 3.2 cm (< 3.3) IVSd: 1.3 cm (0.6 - 1.1) LVIDd: 5.3 cm (3.9 - 5.3) LVPWd: 1.3 cm (0.6 - 1.1) IVSs: 1.4 cm LVIDs: 4.6 cm LVPWs: 1.6 cm LA Diam: 4.3 cm (2.7 - 3.8) Ao Diam: 2.8 cm (2.0 - 3.7) AV Cusp: 1.7 cm (1.5 - 2.6) LA Diam: 4.5 cm (2.7 - 3.8) MV EXCURSION: 18.742 mm (> 18.000) MV EF SLOPE: 99 mm/s (70 - 150) EPSS: 1.0 cm MV E Reji: 1.20 m/s MV DecT: 168 ms MV A Reji: 0.69 m/s MV E/A Ratio: 1.74 RAP: 5.00 mmHg RVSP: 35.15 mmHg FINDINGS -------- Sinus rhythm. This was a technically adequate study. The left ventricular size is normal. There is mild concentric left ventricular hypertrophy. Overa ll left ventricular systolic function is mild-moderately impaired with, an EF between 40 - 45 %. The right ventricle is normal in size. The right atrial size is normal. 5.0mg OF Lumason UTLIZED: 2 OR MORE WALL SEGMENTS NOT VISUALIZED. There is mild aortic valve sclerosis. There is no evidence of aortic regurgitation. The mitral valve leaflets are mildly thickened. Mild mitral annular calcification present. Mild m itral regurgitation is present. Mild tricuspid regurgitation present. There is mild pulmonary hypertension. The right ventricular systolic pressure, as measured by Doppler, is 35.15mmHg. There is no pulmonic regurgitation present. The aortic root size is normal. There is no pericardial effusion. CONCLUSIONS -------- 1. The left ventricular size is normal. 2. There is mild concentric left ventricular hypertrophy. 3. Overall left ventricular systolic function is mild-moderately impaired with, an EF between 40 - 45 %. 4. 5.0mg OF Lumason UTLIZED: 2 OR MORE WALL SEGMENTS NOT VISUALIZED. 5. There is mild aortic valve sclerosis. 6. The mitral valve leaflets are mildly thickened. 7. Mild mitral annular calcification present. 8. Mild mitral regurgitation is present. 9. Mild tricuspid regurgitation present. 10. There is mild pulmonary hypertension. 11. The right ventricular systolic pressure, as measured by Doppler, is 35.15mmHg. 12. There is no pulmonic regurgitation present. 13. The aortic root size is normal. 14. There is no pericardial effusion. CHIROPRACTIC TEACHER: Jennifer Muñoz RDCS
[2017-09-08] MEDS ORDERED: ARTIFICIAL TEARS-HYPROMELLOSE DROPS 15 ML BTL BOTH EYES PRN (17:36)
[2017-09-08] MEDS: methylPREDNISolone SOD SUCCI 125 MG/2 ML VIAL IV SCH (17:38)
[2017-09-08] MEDS: CARVEDILOL 12.5 MG TAB PO SCH (17:38)
[2017-09-08] MEDS: INSULIN ASPART 100 UNIT/ML 1 ML 10 ML VIAL SQ SCH ×2 (17:53→22:00)
[2017-09-08] MEDS ORDERED: IPRATROPIUM-ALBUTEROL 3 ML NEB INHALATION SCH (20:00)
[2017-09-08 20:36] LABS: Glucose,Whole Blood 299 mg/dL (75-99)
[2017-09-08] MEDS: MAGNESIUM OXIDE 400 MG TAB PO SCH (21:44)
[2017-09-08] MEDS: ATORVASTATIN 40 MG TAB PO SCH (21:44)
[2017-09-08] MEDS: MELATONIN 5 MG TABLET PO SCH (21:44)
[2017-09-08] MEDS: INSULIN DETEMIR 100 UNIT/ML 10 ML VIAL SQ SCH (22:01)
[2017-09-08 23:33] LABS: Appearance,Urine Clear (Clear); Bacteria,Urine Moderate /hpf; Bilirubin,Urine Negative (Negative); Blood,Urine Small (Negative); Color,Urine Light Yellow; Glucose,Urine (UA) 1+ (Negative); Hyaline Casts,Urine 12 /lpf (0-2); Ketones,Urine Negative (Negative); Leukocyte Esterase,Urine Negative (Negative); Mucus,Urine Rare /hpf; Nitrite,Urine Negative (Negative); Protein,Urine 2+ (Negative); RBC,Urine 5 /hpf (0-5); Specific Gravity,Urine 1.008 (1.001-1.035); Urobilinogen,Urine <2.0 mg/dL (<2.0); WBC,Urine 3 /hpf (0-5)
[2017-09-09] MEDS: HEPARIN SODIUM,PORCINE 5,000 UNIT/ML 1 ML VIAL SQ SCH ×2 (01:18→08:43)
[2017-09-09] MEDS: methylPREDNISolone SOD SUCCI 125 MG/2 ML VIAL IV SCH ×5 (01:18→23:00)
[2017-09-09 02:03] LABS: Hemoglobin A1C 5.8 % (4.0-6.0)
[2017-09-09 05:04] LABS: Creatine Kinase MB 5.6 ng/mL (0.0-2.4)
[2017-09-09 05:05] LABS: Troponin I 1.01 ng/mL (0.000-0.034)
[2017-09-09] MEDS: FUROSEMIDE 10 MG/ML 4 ML VIAL IV SCH ×3 (06:10→19:44)
[2017-09-09 07:00] LABS: Glucose,Whole Blood 334 mg/dL (75-99)
[2017-09-09] MEDS: IPRATROPIUM-ALBUTEROL 3 ML NEB INHALATION SCH ×4 (08:01→20:53)
[2017-09-09] MEDS: LISINOPRIL 20 MG TAB PO SCH (08:43)
[2017-09-09] MEDS: risperiDONE 0.5 MG TAB PO SCH (08:43)
[2017-09-09] MEDS: MAGNESIUM OXIDE 400 MG TAB PO SCH ×2 (08:44→19:43)
[2017-09-09] MEDS: CARVEDILOL 12.5 MG TAB PO SCH ×2 (08:44→17:34)
[2017-09-09] MEDS: CHOLECALCIFEROL 1,000 UNIT TAB PO SCH (08:44)
[2017-09-09] MEDS: CITALOPRAM HYDROBROMIDE 20 MG TAB PO SCH (08:44)
[2017-09-09] MEDS: INSULIN ASPART 100 UNIT/ML 1 ML 10 ML VIAL SQ SCH ×7 (08:49→21:15)
[2017-09-09] MEDS ORDERED: FUROSEMIDE 40 MG TAB PO SCH (09:00)
[2017-09-09 09:58] LABS: Glucose,Whole Blood 240 mg/dL (75-99)
[2017-09-09] MEDS: cefTRIAXone IN SWFI 1,000 MG/10 ML SYRINGE IVP SCH (10:29)
[2017-09-09] MEDS ORDERED: HEPARIN SODIUM,PORCINE 5,000 UNIT/ML 1 ML VIAL IV PRN (11:27)
[2017-09-09] MEDS ORDERED: HEPARIN SODIUM,PORCINE 5,000 UNIT/ML 1 ML VIAL IV ONE (11:27)
--- NOTE | 2017-09-09 11:28 | P.PN ---
Subjective Progress Note Date: 09/09/17 Roll gentleman history of diabetes, hypertension, hyperlipidemia, prior nicotine use, prior CVA, mild COPD, who states that over the past 3-4 days he's been experiencing significant chest pressure and heaviness, he states that when the symptoms come on he can hardly breathe and he becomes quite sweaty. Symptoms worsened when he tries to exert himself. Patient states that he's also been having progressively worsening shortness of breath over the past few days. Its initial troponin on presentation was abnormal at 0.018, subsequent troponin 0.012, 0.075, and 1.0. Let's WAS normal, hemoglobin 12.7, potassium 4.4, BUN 36, creatinine 1.0. BNP level 4740 on admission. Blood pressure this morning 140/50 with a heart rate in the 70s, 96% on 3 L of oxygen. He was in a normal sinus rhythm, he did have a run of nonsustained ventricular tachycardia this morning. EKG shows a normal sinus rhythm with inferior T-wave inversion and anterior ST-T wave changes. Echo with Doppler study was performed which revealed mild to moderately impaired function with an ejection fraction of 40-45%. Doppler study performed in January of last year revealed a normal left ventricular systolic function. He was seen in consultation yesterday by cardiology. He was initiated on IV Lasix 40 mg every 8 hourly. Heart the patient on an aspirin, we will also discontinue the subcu heparin and initiate IV heparin per protocol. We will transfer the patient to the telemetry unit. Continue Lipitor, Coreg, IV Lasix, Cipro, Objective - Vital Signs Vital signs: Vital Signs Temp 98.1 F 09/09/17 06:47 Pulse 88 09/09/17 08:03 Resp 12 09/09/17 06:47 BP 140/58 09/09/17 06:47 Pulse Ox 96 09/09/17 06:47 Intake & Output 09/08/17 09/09/17 09/09/17 18:59 06:59 18:59 Intake Total 952 Output Total 450 2330 700 Balance 502 -2330 -700 Weight 106.594 kg 109.5 kg Intake: Oral 952 Output: Urine 450 1680 700 Straight 840 Uretheral (Rivera) 700 Post Void Residual 650 Other: Voiding Method Urinal Indwelling Catheter Diaper Incontinent # Voids 3 0 - Exam PHYSICAL EXAMINATION: HEENT: Head is atraumatic, normocephalic. Pupils equal, round. Neck is supple. There is no elevated jugular venous pressure. HEART EXAMINATION: Heart S1 and S2 1 systolic murmur is heard CHEST EXAMINATION: Lungs reveal fine rales to bilateral bases. ABDOMEN: Soft, nontender. Bowel sounds are heard. No organomegaly noted. EXTREMITIES: 2+ peripheral pulses with no evidence of peripheral edema and no calf tenderness noted. NEUROLOGIC patient is awake, alert and oriented -3. . - Labs CBC & Chem 7: 09/08/17 10:05 09/08/17 10:05 Labs: Abnormal Lab Results - Last 24 Hours (Table) 09/08/17 09/08/17 09/08/17 Range/Units 10:05 15:11 17:06 POC Glucose (mg/dL) 132 H 222 H (75-99) mg/dL Total Creatine Kinase 34 L (55-170) U/L CK-MB (CK-2) (0.0-2.4) ng/mL Troponin I (0.000-0.034) ng/mL Urine Protein (Negative) Urine Glucose (UA) (Negative) Urine Blood (Negative) Urine Bacteria (None) /hpf Hyaline Casts (0-2) /lpf Urine Mucus (None) /hpf 09/08/17 09/08/17 09/08/17 Range/Units 20:34 22:17 23:25 POC Glucose (mg/dL) 299 H (75-99) mg/dL Total Creatine Kinase (55-170) U/L CK-MB (CK-2) (0.0-2.4) ng/mL Troponin I 0.075 H* (0.000-0.034) ng/mL Urine Protein 2+ H (Negative) Urine Glucose (UA) 1+ H (Negative) Urine Blood Small H (Negative) Urine Bacteria Moderate H (None) /hpf Hyaline Casts 12 H (0-2) /lpf Urine Mucus Rare H (None) /hpf 09/09/17 09/09/17 09/09/17 Range/Units 04:01 06:58 09:47 POC Glucose (mg/dL) 334 H 240 H (75-99) mg/dL Total Creatine Kinase (55-170) U/L CK-MB (CK-2) 5.6 H* (0.0-2.4) ng/mL Troponin I 1.010 H* (0.000-0.034) ng/mL Urine Protein (Negative) Urine Glucose (UA) (Negative) Urine Blood (Negative) Urine Bacteria (None) /hpf Hyaline Casts (0-2) /lpf Urine Mucus (None) /hpf Assessment and Plan Plan: Assessment and plan #[address] elevation myocardial infarction #2 systolic congestive heart failure acute on chronic, LV function 40-45% by echo #3 hypertension #4 hyperlipidemia #5 prior CVA #6 COPD #7 diabetes Plan Patient will be transferred to the cardiac unit. We will continue to diurese the patient, it has been explained to him that he may need to undergo cardiac catheterization to rule out any obstructive coronary artery disease. Patient is willing to proceed but also wishes that we will speak with the son regarding this further. We will continue to monitor intake and output with that daily lytes BUN and creatinine and daily weights. At this time we will maximize medical therapy by adding aspirin to the medication regime, and initiating IV heparin per protocol. DNP note has been reviewed, I agree with a documented findings and plan of care. Patient was seen and examined.
[2017-09-09 11:47] LABS: Basophils % (A) 0 %; Eosinophils # (A) 0.1 k/uL (0-0.7); Eosinophils % (A) 1 %; HGB 12.5 gm/dL (13.0-17.5); Hypochromasia Moderate; Lymphocytes # (A) 0.8 k/uL (1.0-4.8); Lymphocytes % (A) 6 %; MCH 30.7 pg (25.0-35.0); MCHC 30.4 g/dL (31.0-37.0); MCV 100.8 fL (80.0-100.0); Macrocytosis Slight; Mean Platelet Volume 8.2; Monocytes # (A) 0.4 k/uL (0-1.0); Monocytes % (A) 3 %; Neutrophils # (A) 12.2 k/uL (1.3-7.7); Neutrophils % (A) 90 %; Platelet Count 224 k/uL (150-450); RBC 4.06 m/uL (4.30-5.90); RDW 15.2 % (11.5-15.5); WBC 13.5 k/uL (3.8-10.6)
[2017-09-09 11:55] LABS: INR 1.2 (<1.2); Partial Thromboplastin Time 23.9 sec (22.0-30.0); Prothrombin Time 11.2 sec (9.0-12.0)
[2017-09-09 12:02] LABS: Anion Gap 8 mmol/L; Blood Urea Nitrogen 56 mg/dL (9-20); Calcium 8.9 mg/dL (8.4-10.2); Carbon Dioxide 33 mmol/L (22-30); Chloride 101 mmol/L (98-107); Glucose 175 mg/dL (74-99); Sodium 142 mmol/L (137-145)
[2017-09-09 12:04] LABS: Glucose,Whole Blood 167 mg/dL (75-99)
[2017-09-09] MEDS: ASPIRIN 81 MG PO SCH (12:12)
[2017-09-09] MEDS: HEPARIN SOD,PORK IN 0.45% NACL 25,000 UNIT in 0.45% NACL 1 500ML.BAG IV SCH (12:19)
--- NOTE | 2017-09-09 14:14 | PN ---
PROGRESS NOTE DATE OF SERVICE: 09/09/2017 CHIEF COMPLAINT: Shortness of breath and congestive heart failure. HISTORY OF PRESENT ILLNESS: This gentleman has had some difficulties including rising troponin. He is not having chest pain. Blood sugars are also quite high. Breathing is improved slightly. PHYSICAL EXAM: Breath sounds are diminished throughout. Cardiac exam demonstrates tachycardia. The abdomen is soft, nontender. Extremities are normal. IMPRESSION: 1. Acute congestive heart failure. 2. Chronic congestive heart failure. 3. Uncontrolled diabetes mellitus. 4. Chronic obstructive pulmonary disease. 5. Personality disorder. 6. Probable myocardial infarction. PLAN: The patient is being moved to telemetry and has been seen by Cardiology. He is on heparin and will be stabilized. Blood sugars are being addressed. MMODL / IJN: [id number] /
--- NOTE | 2017-09-09 14:19 | HP ---
HISTORY AND PHYSICAL CHIEF COMPLAINT: Shortness of breath. HISTORY OF PRESENT ILLNESS: This gentleman was brought to the emergency room from a [facility] because of shortness of breath. He has a long-standing history of COPD. He is a poor historian and there was not apparently history of chest pain. There was history of no fever, chills or hemoptysis. There is no other history available. REVIEW OF SYSTEMS: Was difficult to obtain under the circumstances, but he denied any fever, chills, headache, or focal neurologic deficits, changes in vision or hearing, abdominal pain, nausea, vomiting, diarrhea, melena, urinary complaints, etc. He does have poorly controlled diabetes. He has been a noncompliant patient. Past medical history, family history, and personal and social histories are all essentially unremarkable or noncontributory. He used to smoke heavily. He also had a history of secondary polycythemia. PHYSICAL EXAMINATION: Blood pressure is 113/54 with a pulse of 96, respirations of 46, he is afebrile. In general, he appeared to be in some respiratory distress. Skin color is normal. Skin is dry. Head ears, eyes, nose, mouth, and throat were normal and neck veins were not distended. Chest demonstrated increased AP diameter with poor breath sounds. Cardiac exam demonstrated tachycardia and the abdomen was protuberant, soft, and nontender and there are no masses or visceromegaly. EXTREMITIES: Normal. Neurologically, he seemed to be intact. IMPRESSION: 1. Acute respiratory failure. 2. Chronic obstructive pulmonary disease. 3. Poorly-controlled insulin-dependent diabetes mellitus. 4. History of polycythemia. 5. Rule out pneumonitis. 6. Rule out pulmonary embolism. 7. Treat for congestive heart failure. 8. Cardiac enzymes. 9. Pulmonology consult. MMODL / IJN: [id number] /
[2017-09-09 16:34] LABS: Glucose,Whole Blood 86 mg/dL (75-99)
--- NOTE | 2017-09-09 17:13 | PN ---
PROGRESS NOTE DATE OF SERVICE: 09/09/2017 He continues to have shortness of breath. On physical examination, his respiratory rate is 12, pulse rate 70, temperature 97.6, blood pressure 166/70, O2 saturation on 4 L by nasal cannula is 91%. HEENT reveals pupils that are equal, mild prominence of the jugular vein. Chest reveals mild prolonged expiration with wheeze. Cardiovascular system is S1, S2. Abdomen is soft. There is trace to 1+ pedal edema. White count is 13.5, hemoglobin 12.5. PT/INR of 1.2. Sodium 142, potassium 5, chloride 101, bicarb 33, BUN 56, creatinine of 1.26. Troponin is 1.01 with a CK-MB of 5.6, total CK is 71. IMPRESSION: 1. Dyspnea secondary to asthma with acute exacerbation. 2. Possible acute myocardial infarction. 3. Acute on chronic respiratory failure. Continue antibiotics, steroids, bronchodilators. Watch his fluid status. Diurese him as needed. Agree with further evaluation by Cardiology. MMODL / IJN: [id number] /
[2017-09-09] MEDS: MELATONIN 5 MG TABLET PO SCH (19:43)
[2017-09-09] MEDS: ATORVASTATIN 40 MG TAB PO SCH (19:43)
[2017-09-09 21:02] LABS: Glucose,Whole Blood 122 mg/dL (75-99)
[2017-09-09] MEDS: INSULIN DETEMIR 100 UNIT/ML 10 ML VIAL SQ SCH (22:54)
[2017-09-10] MEDS: FUROSEMIDE 10 MG/ML 4 ML VIAL IV SCH ×3 (04:47→20:49)
[2017-09-10] MEDS: methylPREDNISolone SOD SUCCI 125 MG/2 ML VIAL IV SCH ×3 (04:47→17:28)
[2017-09-10 06:47] LABS: Basophils % (A) 0 %; Eosinophils % (A) 0 %; HCT 40.2 % (39.0-53.0); HGB 12.4 gm/dL (13.0-17.5); Hypochromasia Moderate; Lymphocytes # (A) 1.2 k/uL (1.0-4.8); Lymphocytes % (A) 7 %; MCH 30.1 pg (25.0-35.0); MCHC 30.9 g/dL (31.0-37.0); MCV 97.2 fL (80.0-100.0); Mean Platelet Volume 8.2; Monocytes # (A) 0.5 k/uL (0-1.0); Monocytes % (A) 3 %; Neutrophils # (A) 14.4 k/uL (1.3-7.7); Neutrophils % (A) 89 %; Platelet Count 233 k/uL (150-450); RBC 4.13 m/uL (4.30-5.90); RDW 14.7 % (11.5-15.5); WBC 16.2 k/uL (3.8-10.6)
[2017-09-10 06:50] LABS: Glucose,Whole Blood 137 mg/dL (75-99)
[2017-09-10] MEDS: INSULIN ASPART 100 UNIT/ML 1 ML 10 ML VIAL SQ SCH ×7 (06:51→21:47)
[2017-09-10] MEDS: CARVEDILOL 12.5 MG TAB PO SCH ×2 (06:52→17:28)
[2017-09-10 07:03] LABS: Anion Gap 7 mmol/L; Blood Urea Nitrogen 68 mg/dL (9-20); Carbon Dioxide 33 mmol/L (22-30); Chloride 101 mmol/L (98-107); Glucose 141 mg/dL (74-99); Sodium 141 mmol/L (137-145)
[2017-09-10] MEDS: MAGNESIUM OXIDE 400 MG TAB PO SCH ×2 (08:12→20:49)
[2017-09-10] MEDS: LISINOPRIL 20 MG TAB PO SCH (08:12)
[2017-09-10] MEDS: ASPIRIN 81 MG PO SCH (08:12)
[2017-09-10] MEDS: CHOLECALCIFEROL 1,000 UNIT TAB PO SCH (08:12)
[2017-09-10] MEDS: CITALOPRAM HYDROBROMIDE 20 MG TAB PO SCH (08:12)
[2017-09-10] MEDS: cefTRIAXone IN SWFI 1,000 MG/10 ML SYRINGE IVP SCH (08:12)
[2017-09-10] MEDS: risperiDONE 0.5 MG TAB PO SCH (08:13)
[2017-09-10] MEDS: HEPARIN SOD,PORK IN 0.45% NACL 25,000 UNIT in 0.45% NACL 1 500ML.BAG IV SCH (08:13)
[2017-09-10] MEDS: IPRATROPIUM-ALBUTEROL 3 ML NEB INHALATION SCH ×5 (08:19→21:30)
[2017-09-10 11:35] LABS: Glucose,Whole Blood 202 mg/dL (75-99)
--- NOTE | 2017-09-10 13:50 | P.PN ---
Subjective Patient is still short of breath but denies any chest discomfort. On examination he is afebrile 97.7F, pulse rate in the low blood pressure 155/ 60 mmHg 92% on 5 L nasal cannula. His breathing is shallow while there is no respiratory distress breath sounds are reduced bilaterally with some crackles in the bases bilaterally Heart sounds are soft no murmurs or gallops Abdomen is soft nontender Labs are reviewed troponins are normal followed by 0.075 followed by 1.01 Rising trend BUN 56 creatinine 1.26 potassium 5.0 Impression Likely non-Q-wave myocardial infarction Congestive heart failure with reduced LV systolic function Chronic kidney disease stage III Nonsustained ventricular tachycardia Suggest Continue IV Lasix Continue cardiac medications Heparin can be discontinued tomorrow Once his heart failure status improves a discussion regarding workup for coronary artery disease should be pursued as an inpatient Objective - Vital Signs Vital signs: Vital Signs Temp 98.7 F 09/10/17 08:03 Pulse 68 09/10/17 08:30 Resp 18 09/10/17 08:03 BP 155/68 09/10/17 08:03 Pulse Ox 92 L 09/10/17 08:03 Intake & Output 09/09/17 09/10/17 09/10/17 18:59 06:59 18:59 Intake Total 730.601 226.354 503.045 Output Total 1550 800 400 Balance -819.399 -573.646 103.045 Weight 97 kg Intake: Intake, IV Titration 130.601 226.354 143.045 Amount Heparin Sod,Pork in 0.45% 130.601 226.354 143.045 NaCl 25,000 unit In 0.45 % NaCl 1 500ml.bag @ 9.13 UNITS/KG/HR 19.99 mls/hr IV .Q24H [facility] Rx#: [id number] Oral 600 360 Output: Urine 1550 800 400 Uretheral (Rivera) 700 Other: Voiding Method Indwelling Catheter Indwelling Catheter Indwelling Catheter # Voids 1 - Labs CBC & Chem 7: 09/10/17 06:24 09/10/17 06:24 Labs: Abnormal Lab Results - Last 24 Hours (Table) 09/09/17 09/09/17 09/09/17 Range/Units 11:36 11:36 11:36 WBC 13.5 H (3.8-10.6) k/uL RBC 4.06 L (4.30-5.90) m/uL Hgb 12.5 L (13.0-17.5) gm/dL MCV 100.8 H (80.0-100.0) fL MCHC 30.4 L (31.0-37.0) g/dL Neutrophils # 12.2 H (1.3-7.7) k/uL Lymphocytes # 0.8 L (1.0-4.8) k/uL INR 1.2 H (<1.2) APTT (22.0-30.0) sec Carbon Dioxide 33 H (22-30) mmol/L BUN 56 H (9-20) mg/dL Creatinine 1.26 H (0.66-1.25) mg/dL Glucose 175 H (74-99) mg/dL POC Glucose (mg/dL) (75-99) mg/dL 09/09/17 09/09/17 09/09/17 Range/Units 11:59 18:10 20:58 WBC (3.8-10.6) k/uL RBC (4.30-5.90) m/uL Hgb (13.0-17.5) gm/dL MCV (80.0-100.0) fL MCHC (31.0-37.0) g/dL Neutrophils # (1.3-7.7) k/uL Lymphocytes # (1.0-4.8) k/uL INR (<1.2) APTT 34.3 H (22.0-30.0) sec Carbon Dioxide (22-30) mmol/L BUN (9-20) mg/dL Creatinine (0.66-1.25) mg/dL Glucose (74-99) mg/dL POC Glucose (mg/dL) 167 H 122 H (75-99) mg/dL 09/10/17 09/10/17 09/10/17 Range/Units 00:52 06:24 06:24 WBC 16.2 H (3.8-10.6) k/uL RBC 4.13 L (4.30-5.90) m/uL Hgb 12.4 L (13.0-17.5) gm/dL MCV (80.0-100.0) fL MCHC 30.9 L (31.0-37.0) g/dL Neutrophils # 14.4 H (1.3-7.7) k/uL Lymphocytes # (1.0-4.8) k/uL INR (<1.2) APTT 48.2 H (22.0-30.0) sec Carbon Dioxide 33 H (22-30) mmol/L BUN 68 H (9-20) mg/dL Creatinine (0.66-1.25) mg/dL Glucose 141 H (74-99) mg/dL POC Glucose (mg/dL) (75-99) mg/dL 09/10/17 Range/Units 06:46 WBC (3.8-10.6) k/uL RBC (4.30-5.90) m/uL Hgb (13.0-17.5) gm/dL MCV (80.0-100.0) fL MCHC (31.0-37.0) g/dL Neutrophils # (1.3-7.7) k/uL Lymphocytes # (1.0-4.8) k/uL INR (<1.2) APTT (22.0-30.0) sec Carbon Dioxide (22-30) mmol/L BUN (9-20) mg/dL Creatinine (0.66-1.25) mg/dL Glucose (74-99) mg/dL POC Glucose (mg/dL) 137 H (75-99) mg/dL Microbiology - Last 24 Hours (Table) 09/08/17 23:25 Urine Culture - Preliminary Urine,Catheterized
[2017-09-10 16:49] LABS: Glucose,Whole Blood 184 mg/dL (75-99)
--- NOTE | 2017-09-10 17:47 | PN ---
PROGRESS NOTE DATE OF SERVICE: September 10, 2017. He has remained hemodynamically stable. He is less short of breath. He does not complain of any chest pain today. On physical examination, his blood pressure is 184/82, respiratory rate of 18, pulse rate of 76, temperature 97.9, O2 saturation on 2 L by nasal cannula is 92%. HEENT reveals pupils that are equal. Chest reveals faint expiratory wheeze. Cardiovascular system reveals an S1, S2. Abdomen is soft. There is trace pedal edema. IMPRESSION: At this time is: 1. Acute myocardial infarction. 2. Congestive heart failure. 3. Bronchospasm secondary to chronic obstructive pulmonary disease with acute exacerbation. 4. It is unclear whether he has a secondary bacterial infection. Continue the patient on IV heparin, IV diuretic, control his blood sugars, continue IV steroids, bronchodilators and increases activity level. His prognosis at this time is guarded. He may require further cardiac workup. We will have ID further evaluate the patient to see if he in fact needs antibiotics. MMODL / IJN: [id number] /
[2017-09-10] MEDS: MELATONIN 5 MG TABLET PO SCH (20:49)
[2017-09-10] MEDS: ATORVASTATIN 40 MG TAB PO SCH (20:49)
[2017-09-10 21:28] LABS: Glucose,Whole Blood 189 mg/dL (75-99)
[2017-09-10] MEDS: INSULIN DETEMIR 100 UNIT/ML 10 ML VIAL SQ SCH (21:47)
[2017-09-11] MEDS: methylPREDNISolone SOD SUCCI 125 MG/2 ML VIAL IV SCH ×5 (00:30→23:41)
[2017-09-11 04:56] LABS: Glucose,Whole Blood 141 mg/dL (75-99)
[2017-09-11] MEDS: FUROSEMIDE 10 MG/ML 4 ML VIAL IV SCH ×2 (05:01→12:00)
[2017-09-11 06:20] LABS: Glucose,Whole Blood 121 mg/dL (75-99)
[2017-09-11 06:34] LABS: Basophils % (A) 0 %; Eosinophils % (A) 0 %; HCT 41.1 % (39.0-53.0); HGB 12.6 gm/dL (13.0-17.5); Hypochromasia Moderate; Lymphocytes # (A) 0.9 k/uL (1.0-4.8); Lymphocytes % (A) 6 %; MCH 30.5 pg (25.0-35.0); MCHC 30.5 g/dL (31.0-37.0); MCV 99.9 fL (80.0-100.0); Macrocytosis Slight; Mean Platelet Volume 8.2; Monocytes # (A) 0.6 k/uL (0-1.0); Monocytes % (A) 4 %; Neutrophils # (A) 12.4 k/uL (1.3-7.7); Neutrophils % (A) 89 %; Platelet Count 191 k/uL (150-450); RBC 4.12 m/uL (4.30-5.90); RDW 14.7 % (11.5-15.5); WBC 13.9 k/uL (3.8-10.6)
[2017-09-11] MEDS: HEPARIN SOD,PORK IN 0.45% NACL 25,000 UNIT in 0.45% NACL 1 500ML.BAG IV SCH (06:36)
[2017-09-11] MEDS: INSULIN ASPART 100 UNIT/ML 1 ML 10 ML VIAL SQ SCH ×7 (06:37→22:08)
[2017-09-11] MEDS: CARVEDILOL 12.5 MG TAB PO SCH ×2 (06:46→16:48)
--- NOTE | 2017-09-11 07:57 | CONS ---
CONSULTATION DATE OF SERVICE: 09/10/17 REASON FOR CONSULTATION: Antibiotic management. HISTORY OF PRESENT ILLNESS: The patient is a 72 -year-old male with a past medical history significant for COPD who presented to the ER at [facility] on August with chief complaint of increased shortness of breath and cough and congestion. Apparently this has been going on for a few days prior to admission to the Hospital. The patient noticed to be hypoxic by the [facility]. Was given supplemental oxygen. However, the patient remains to be slightly hypoxic as he has been sent to the [facility] ER for further evaluation. On arrival to the ER , the patient did have a chest x-ray which shows correlates for congestive heart failure, possible associated effusion. Follow up as recommended. Since the patient has been admitted to hospital, no fever has been noticed. He did have a normal white count on admission. However, subsequent white count has been trending up. The patient has been on Solu-Medrol for his underlying COPD. The patient also started on Rocephin for possible secondary bacterial infection. However, his UA did show some moderate bacteria but no leukocyte esterase or white cells and culture has been negative. The RN has questioned the continued use of antibiotic and hence ID was consulted for further recommendation and evaluation and need for antibiotic therapy. REVIEW OF SYSTEMS: Constitutional: Positive for weakness, however, denies any fever. Eyes: No complaint. ENT: No complaint. Respiratory as per HPI. Cardiovascular as per HPI. Genitourinary: No complaint. Gastrointestinal: No complaint. Musculoskeletal no complaint. Integumentary no complaint. Psychological: No complaint. Endocrine : No complaint. Neurological: No complaint. PAST MEDICAL HISTORY: Significant for diabetes mellitus, hypertension, hyperlipidemia, pneumonia, asthma, eczema. PAST SURGICAL HISTORY: Tonsillectomy, neck surgery with bone graft, left eye cataract removal, right hand little finger surgery. SOCIAL HISTORY: Remote history of smoking. No drinking or drug use. FAMILY HISTORY: Father history of COPD. Mother history of coronary disease and IA. ALLERGIES: No known drug allergies. MEDICATIONS: Include the patient is currently on DuoNeb, aspirin, Lipitor, Coreg, Rocephin, vitamin D3, Celexa, Lasix, heparin, NovoLog, Levemir, Zestril, Mag oxide, melatonin, Solu- Medrol, and Risperdal. EXAMINATION: Blood pressure 172/74 with a pulse of 75, temperature 97.5. He is 91% on 2 L nasal cannula. General description is an elderly male lying in bed in no distress. No tachypnea or accessory muscles for respiration use. HEENT: Shows no pallor. No scleral icterus. Oral mucosal membranes dry. No pharyngeal erythema or thrush Neck trachea central. No thyromegaly. Lungs unlabored breathing with decreased intensity of breath sounds. No wheeze. Heart S1, S2. Regular rate and rhythm. ABDOMEN: Soft. No tenderness. No guarding. No rigidity. No organomegaly EXTREMITIES: No edema of the feet. Skin examination: No rash or mass palpable. Neurologic the patient is awake, alert, oriented x2. Mood and affect normal. LABS: Hemoglobin is 12.4, white count 6.2 today, on admission white count was 10.0, BUN of 68, creatinine 1.24. Urine is negative. Chest x-ray report as mentioned above. DIAGNOSTIC IMPRESSION AND PLAN: 1. Patient in the hospital with difficulty breathing and hypoxemia, source more likely due to underlying chronic obstructive pulmonary disease exacerbation, possible tracheobronchitis. Clinically no evidence of pneumonia. An x-ray has been negative for any consolidation. No significantly positive UA or any urinary symptoms. Clinical suspicion remains low for any bacterial infection. 2. Patient with elevated white count, likely secondary to steroid effect plan. PLAN: 1. Recommend discontinuation of the Rocephin. 2. Patient monitored closely off antibiotic. If any new fever or changes in the condition, appropriate cultures will be obtained before starting him on antibiotics. Thank you for the consultation. MMODL / IJN: [id number] / ANH
[2017-09-11] MEDS: ASPIRIN 81 MG PO SCH (08:03)
[2017-09-11] MEDS: CITALOPRAM HYDROBROMIDE 20 MG TAB PO SCH (08:04)
[2017-09-11] MEDS: CHOLECALCIFEROL 1,000 UNIT TAB PO SCH (08:04)
[2017-09-11] MEDS: MAGNESIUM OXIDE 400 MG TAB PO SCH ×2 (08:04→22:02)
[2017-09-11] MEDS: LISINOPRIL 20 MG TAB PO SCH (08:04)
[2017-09-11] MEDS: risperiDONE 0.5 MG TAB PO SCH (08:05)
[2017-09-11] MEDS: IPRATROPIUM-ALBUTEROL 3 ML NEB INHALATION SCH ×4 (08:16→21:04)
--- NOTE | 2017-09-11 09:45 | P.PN ---
Subjective Progress Note Date: 09/11/17 Principal diagnosis: Acute hypoxic respiratory failure, acute systolic heart failure, acute non-ST segment elevated [place], nonsustained ventricular tachycardia, COPD severe Gen. 2017, patient seen eval examined during the rounds shortness of breath slightly better patient gently being diuresed patient remains on IV heparin for his non-ST segment elevated FL cardiovascular services following no more episodes of nonsustained ventricular tachycardia has been seen patient has a stage III renal failure and acute on chronic worsening for which she is being monitored and observed on diuretic as well Montessori questioning denies any cough or sputum production does of shortness breath on activity and exertion and occasional dry nonproductive cough however is noted my his urine culture results and reports are reviewed no growth so far my last chest x-ray revealed congestive heart failure likely pulmonary edema acute on chronic diastolic heart failure Objective - Vital Signs Vital signs: Vital Signs Temp 97.6 F 09/11/17 04:50 Pulse 80 09/11/17 08:27 Resp 18 09/11/17 04:50 BP 172/72 09/11/17 04:50 Pulse Ox 95 09/11/17 04:50 Intake & Output 09/10/17 09/11/17 09/11/17 18:59 06:59 18:59 Intake Total 503.045 500 Output Total 1100 1950 Balance -596.955 -1450 Weight 98.5 kg Intake: Intake, IV Titration 143.045 500 Amount Heparin Sod,Pork in 0.45% 143.045 500 NaCl 25,000 unit In 0.45 % NaCl 1 500ml.bag @ 9.13 UNITS/KG/HR 19.99 mls/hr IV .Q24H [facility] Rx#: [id number] Oral 360 Output: Urine 1100 1950 Uretheral (Rivera) 1050 Other: Voiding Method Indwelling Catheter Indwelling Catheter - Exam General appearance: alert, less anxious, not in distress as noted previously Head exam: Present: atraumatic, normocephalic, normal inspection Eye exam: Present: normal appearance, PERRL, EOMI. Absent: scleral icterus, conjunctival injection, periorbital swelling ENT exam: Present: normal exam, mucous membranes moist Neck exam: Present: normal inspection. Absent: tenderness, meningismus, lymphadenopathy Respiratory exam: Present: S respiratory distress, proved wheezes, accessory muscle use, decreased breath sounds, prolonged expiratory. Noted scattered basal rales, no rhonchi or stridor noted Cardiovascular Exam: Present: regular rate, normal rhythm, normal heart sounds. Absent: systolic murmur, diastolic murmur, rubs, gallop, clicks GI/Abdominal exam: Present: soft, normal bowel sounds. Absent: distended, tenderness, guarding, rebound, rigid Extremities exam: Present: normal inspection, full ROM, normal capillary refill. Absent: tenderness, +1 pedal edema, no joint swelling, no calf tenderness Back exam: Present: normal inspection Neurological exam: Present: alert, oriented X3, CN II-XII intact Psychiatric exam: Present: normal affect, normal mood Skin exam: Present: warm, dry, intact, normal color. Absent: rash - Labs CBC & Chem 7: 09/11/17 05:55 09/10/17 06:24 Labs: Abnormal Lab Results - Last 24 Hours (Table) 09/10/17 09/10/17 09/10/17 Range/Units 11:33 16:45 21:22 WBC (3.8-10.6) k/uL RBC (4.30-5.90) m/uL Hgb (13.0-17.5) gm/dL MCHC (31.0-37.0) g/dL Neutrophils # (1.3-7.7) k/uL Lymphocytes # (1.0-4.8) k/uL APTT (22.0-30.0) sec POC Glucose (mg/dL) 202 H 184 H 189 H (75-99) mg/dL 09/11/17 09/11/17 09/11/17 Range/Units 04:54 05:55 05:55 WBC 13.9 H (3.8-10.6) k/uL RBC 4.12 L (4.30-5.90) m/uL Hgb 12.6 L (13.0-17.5) gm/dL MCHC 30.5 L (31.0-37.0) g/dL Neutrophils # 12.4 H (1.3-7.7) k/uL Lymphocytes # 0.9 L (1.0-4.8) k/uL APTT 48.0 H (22.0-30.0) sec POC Glucose (mg/dL) 141 H (75-99) mg/dL 09/11/17 Range/Units 06:15 WBC (3.8-10.6) k/uL RBC (4.30-5.90) m/uL Hgb (13.0-17.5) gm/dL MCHC (31.0-37.0) g/dL Neutrophils # (1.3-7.7) k/uL Lymphocytes # (1.0-4.8) k/uL APTT (22.0-30.0) sec POC Glucose (mg/dL) 121 H (75-99) mg/dL Microbiology - Last 24 Hours (Table) 09/08/17 23:25 Urine Culture - Final Urine,Catheterized Assessment and Plan Assessment: Acute hypoxic respiratory failure related to acute exacerbation of COPD Acute exacerbation of CHF likely acute systolic heart failure Cardiomyopathy likely ischemic Non-ST segment elevated [place] acute Severe COPD Hypertension hypertensive cardiovascular disease Purulent tracheobronchitis, improved off of Rocephin Plan: Continue breathing treatment with nebulizer therapy, along with the steroid, we' ll resume home medication, Lasix to IV 40 every 12 to observe off of antibiotics continue breathing treatment continue antilipid agent optimize heart failure therapy monitor renal functions closely , Monitor off of his steroids Time with Patient: Greater than 30
[2017-09-11] MEDS ORDERED: amLODIPine 5 MG TAB PO STA (11:47)
[2017-09-11 12:06] LABS: Glucose,Whole Blood 101 mg/dL (75-99)
[2017-09-11 14:31] LABS: Glucose,Whole Blood 85 mg/dL (75-99)
--- NOTE | 2017-09-11 15:09 | PN ---
PROGRESS NOTE DATE OF SERVICE: 09/10/17 CHIEF COMPLAINT: Congestive heart failure, acute LA, COPD and diabetes. HISTORY OF PRESENT ILLNESS: This patient is being followed by Cardiology. He seems more lethargic today. He is very difficult to arouse. He has no focal neurologic deficits. He denies any chest pain. PHYSICAL EXAM: Color is good. Hydration is good. Breath sounds are heard bilaterally and his cardiac exam sounds like sinus rhythm. Abdomen is soft, nontender. He is lethargic. IMPRESSION: 1. Acute congestive heart failure. 2. Acute myocardial infarction. 3. Poorly-controlled insulin-dependent diabetes mellitus. 4. Lethargy. PLAN: 1. Continue to bring his blood sugars back under good control. There are coming down. 2. Await further studies and recommendations from Cardiology. MMODL / IJN: [id number] /
--- NOTE | 2017-09-11 15:18 | PN ---
PROGRESS NOTE DATE OF SERVICE: 09/11/2017. CHIEF COMPLAINT: Acute ID, congestive heart failure, diabetes and lethargy. HISTORY OF PRESENT ILLNESS: This gentleman is still remains lethargic. There has been no other interval changes. Vital signs are normal. Blood sugars are coming down nicely. PHYSICAL EXAM: He is a little difficult to arouse, but does so. Chest is clear. The cardiac exam is normal. Abdomen is soft, nontender. IMPRESSION: 1. Congestive heart failure. 2. Chronic obstructive pulmonary disease. 3. Poorly controlled diabetes. 4. Lethargy. PLAN: No change in program. Continue to monitor his neurologic status. MMODL / IJN: [id number] /
[2017-09-11] MEDS: SODIUM CHLORIDE 0.9% 1,000 ML IV SCH (16:05)
[2017-09-11 16:38] LABS: Glucose,Whole Blood 77 mg/dL (75-99)
[2017-09-11 21:57] LABS: Glucose,Whole Blood 221 mg/dL (75-99)
[2017-09-11] MEDS: MELATONIN 5 MG TABLET PO SCH (22:02)
[2017-09-11] MEDS: ATORVASTATIN 40 MG TAB PO SCH (22:02)
[2017-09-11] MEDS: INSULIN DETEMIR 100 UNIT/ML 10 ML VIAL SQ SCH (22:07)
[2017-09-12 01:37] LABS: Glucose,Whole Blood 145 mg/dL (75-99)
--- NOTE | 2017-09-12 05:00 | PN ---
PROGRESS NOTE This patient was admitted with respiratory distress and has been treated for acute exacerbation of COPD. Patient's echocardiogram reveals normal left ventricular systolic function. This patient has been having intermittent chest discomfort and has a positive troponin suggestive of non-Q-wave AK. The patient is feeling better. He is afebrile. There is no definite evidence of pneumonia. The patient's BUN has increased to 68 and creatinine is 1.24. Chest x-ray does show any significant failure. First and second heart sounds are normal. Lungs examination revealed a few scattered wheezes. PLAN: We will discontinue the IV Lasix and give him fluids at 75 mL/hour and recheck the BMP. Once patient's BUN and creatinine is stabilized, he will be considered for cardiac catheterization for definitive diagnosis. ADRIENNE / MIRZA: [id number] /
[2017-09-12 06:11] LABS: Glucose,Whole Blood 112 mg/dL (75-99)
[2017-09-12 06:27] LABS: Basophils % (A) 0 %; Eosinophils % (A) 0 %; HCT 43.3 % (39.0-53.0); HGB 13.2 gm/dL (13.0-17.5); Hypochromasia Marked; Lymphocytes # (A) 0.7 k/uL (1.0-4.8); Lymphocytes % (A) 6 %; MCH 30.3 pg (25.0-35.0); MCHC 30.5 g/dL (31.0-37.0); MCV 99.3 fL (80.0-100.0); Macrocytosis Slight; Mean Platelet Volume 8.1; Monocytes # (A) 0.4 k/uL (0-1.0); Monocytes % (A) 4 %; Neutrophils # (A) 10.8 k/uL (1.3-7.7); Neutrophils % (A) 90 %; Platelet Count 201 k/uL (150-450); RBC 4.36 m/uL (4.30-5.90); RDW 14.8 % (11.5-15.5)
[2017-09-12] MEDS: INSULIN ASPART 100 UNIT/ML 1 ML 10 ML VIAL SQ SCH ×8 (06:28→21:08)
[2017-09-12] MEDS: SODIUM CHLORIDE 0.9% 1,000 ML IV SCH ×3 (06:28→08:52)
[2017-09-12] MEDS: methylPREDNISolone SOD SUCCI 125 MG/2 ML VIAL IV SCH ×3 (06:28→17:08)
[2017-09-12] MEDS: CARVEDILOL 12.5 MG TAB PO SCH ×2 (06:29→16:09)
--- NOTE | 2017-09-12 07:16 | PN ---
PROGRESS NOTE DATE OF SERVICE: 09/11/2017 REASON FOR FOLLOWUP: Tracheobronchitis, leukocytosis and need for antibiotics INTERVAL HISTORY: The patient is afebrile. Has been breathing comfortably. No nausea or vomiting has been noticed. No worsening shortness of breath. No abdominal pain, no diarrhea. PHYSICAL EXAMINATION: Blood pressure 180/77 with a pulse of 80, temperature of 96.8. He is 95% on 2 L nasal cannula. General description is an elderly male lying in bed, in no distress. RESPIRATORY SYSTEM: Unlabored breathing with decreased breath sounds at the base, no wheeze. HEART: S1, S2. Regular rate and rhythm. ABDOMEN: Soft, no tenderness. LABS: Hemoglobin is 12.3, white count 13.9. Urine was negative. No blood culture obtained. DIAGNOSTIC IMPRESSION AND PLAN: Patient admitted to the hospital with difficulty breathing likely due to COPD and the patient with tracheobronchitis. No evidence of any pneumonia. Did have elevated white count, more likely secondary to drug effect and showing a downward trend. Patient is being monitored closely, off antibiotic therapy. Continue supportive care. MMODL / IJN: [id number] /
[2017-09-12] MEDS: FUROSEMIDE 40 MG TAB PO SCH (08:07)
[2017-09-12] MEDS: CHOLECALCIFEROL 1,000 UNIT TAB PO SCH (08:07)
[2017-09-12] MEDS: MAGNESIUM OXIDE 400 MG TAB PO SCH ×2 (08:07→19:50)
[2017-09-12] MEDS: ASPIRIN 81 MG PO SCH (08:07)
[2017-09-12] MEDS: LISINOPRIL 20 MG TAB PO SCH (08:07)
[2017-09-12] MEDS: risperiDONE 0.5 MG TAB PO SCH (08:07)
[2017-09-12] MEDS: CITALOPRAM HYDROBROMIDE 20 MG TAB PO SCH (08:07)
[2017-09-12] MEDS: IPRATROPIUM-ALBUTEROL 3 ML NEB INHALATION SCH ×4 (08:25→21:20)
[2017-09-12 11:20] LABS: Glucose,Whole Blood 165 mg/dL (75-99)
[2017-09-12] MEDS: HEPARIN SOD,PORK IN 0.45% NACL 25,000 UNIT in 0.45% NACL 1 500ML.BAG IV SCH ×2 (11:53→17:11)
[2017-09-12 12:17] LABS: Anion Gap 5 mmol/L; Blood Urea Nitrogen 67 mg/dL (9-20); Calcium 8.7 mg/dL (8.4-10.2); Carbon Dioxide 34 mmol/L (22-30); Chloride 104 mmol/L (98-107); Glucose 120 mg/dL (74-99); Potassium 4.5 mmol/L (3.5-5.1); Sodium 143 mmol/L (137-145)
--- NOTE | 2017-09-12 13:46 | P.PN ---
Subjective Progress Note Date: 09/12/17 Principal diagnosis: Acute hypoxic respiratory failure, acute systolic heart failure, acute non-ST segment elevated MD, nonsustained ventricular tachycardia, COPD severe 09/12/2017, patient seen and evaluated examined fistula shortness of breath the and cough but however CVAT has improved patient FiO2 is down to 3 L now she remains on IV heparin for non-ST segment elevated MD no other [place] complains of present denies any chest pain tightness or sputum production patient remains on breathing treatments off of his steroids and antibiotic is being observed closely September 11 2017, patient seen eval examined during the rounds shortness of breath slightly better patient gently being diuresed patient remains on IV heparin for his non-ST segment elevated MD cardiovascular services following no more episodes of nonsustained ventricular tachycardia has been seen patient has a stage III renal failure and acute on chronic worsening for which she is being monitored and observed on diuretic as well Montessori questioning denies any cough or sputum production does of shortness breath on activity and exertion and occasional dry nonproductive cough however is noted my his urine culture results and reports are reviewed no growth so far my last chest x-ray revealed congestive heart failure likely pulmonary edema acute on chronic diastolic heart failure Objective - Vital Signs Vital signs: Vital Signs Temp 97.4 F L 09/12/17 11:00 Pulse 68 09/12/17 11:59 Resp 18 09/12/17 11:00 BP 140/67 09/12/17 11:00 Pulse Ox 93 L 09/12/17 11:00 Intake & Output 09/11/17 09/12/17 09/12/17 18:59 06:59 18:59 Intake Total 600 900 218 Output Total 3050 1000 Balance -2450 -100 218 Weight 98 kg Intake: Intake, IV Titration 900 100 Amount Heparin Sod,Pork in 0.45% 500 NaCl 25,000 unit In 0.45 % NaCl 1 500ml.bag @ 9.13 UNITS/KG/HR 19.99 mls/hr IV .Q24H [facility] Rx#: [id number] Sodium Chloride 0.9% 1, 400 100 000 ml @ 100 mls/hr IV . Q10H [facility] Rx#:[id number] Oral 600 118 Output: Urine 3050 1000 Uretheral (Rivera) 900 1000 Other: Voiding Method Indwelling Catheter Indwelling Catheter Indwelling Catheter - Exam General appearance: alert, less anxious, not in distress as noted previously Head exam: Present: atraumatic, normocephalic, normal inspection Eye exam: Present: normal appearance, PERRL, EOMI. Absent: scleral icterus, conjunctival injection, periorbital swelling ENT exam: Present: normal exam, mucous membranes moist Neck exam: Present: normal inspection. Absent: tenderness, meningismus, lymphadenopathy Respiratory exam: Present: S respiratory distress, proved wheezes, accessory muscle use, decreased breath sounds, prolonged expiratory. Noted scattered basal rales, no rhonchi or stridor noted Cardiovascular Exam: Present: regular rate, normal rhythm, normal heart sounds. Absent: systolic murmur, diastolic murmur, rubs, gallop, clicks GI/Abdominal exam: Present: soft, normal bowel sounds. Absent: distended, tenderness, guarding, rebound, rigid Extremities exam: Present: normal inspection, full ROM, normal capillary refill. Absent: tenderness, +1 pedal edema, no joint swelling, no calf tenderness Back exam: Present: normal inspection Neurological exam: Present: alert, oriented X3, CN II-XII intact Psychiatric exam: Present: normal affect, normal mood Skin exam: Present: warm, dry, intact, normal color. Absent: rash - Labs CBC & Chem 7: 09/12/17 05:59 09/12/17 05:59 Labs: Abnormal Lab Results - Last 24 Hours (Table) 09/11/17 09/12/17 09/12/17 Range/Units 21:50 01:11 05:56 WBC (3.8-10.6) k/uL MCHC (31.0-37.0) g/dL Neutrophils # (1.3-7.7) k/uL Lymphocytes # (1.0-4.8) k/uL APTT (22.0-30.0) sec Carbon Dioxide (22-30) mmol/L BUN (9-20) mg/dL Glucose (74-99) mg/dL POC Glucose (mg/dL) 221 H 145 H 112 H (75-99) mg/dL 09/12/17 09/12/17 09/12/17 Range/Units 05:59 05:59 05:59 WBC 12.0 H (3.8-10.6) k/uL MCHC 30.5 L (31.0-37.0) g/dL Neutrophils # 10.8 H (1.3-7.7) k/uL Lymphocytes # 0.7 L (1.0-4.8) k/uL APTT 46.8 H (22.0-30.0) sec Carbon Dioxide 34 H (22-30) mmol/L BUN 67 H (9-20) mg/dL Glucose 120 H (74-99) mg/dL POC Glucose (mg/dL) (75-99) mg/dL 09/12/17 Range/Units 11:17 WBC (3.8-10.6) k/uL MCHC (31.0-37.0) g/dL Neutrophils # (1.3-7.7) k/uL Lymphocytes # (1.0-4.8) k/uL APTT (22.0-30.0) sec Carbon Dioxide (22-30) mmol/L BUN (9-20) mg/dL Glucose (74-99) mg/dL POC Glucose (mg/dL) 165 H (75-99) mg/dL Assessment and Plan Assessment: Acute hypoxic respiratory failure related to acute exacerbation of COPD Acute exacerbation of CHF likely acute systolic heart failure Cardiomyopathy likely ischemic Non-ST segment elevated MD acute Severe COPD Hypertension hypertensive cardiovascular disease Purulent tracheobronchitis, improved off of Rocephin Plan: Continue breathing treatment with nebulizer therapy, along with the steroid, we' ll resume home medication, Lasix to IV 40 every 12 to observe off of antibiotics continue breathing treatment continue antilipid agent optimize heart failure therapy monitor renal functions closely , Monitor off of his steroids Time with Patient: Greater than 30
--- NOTE | 2017-09-12 15:34 | PN ---
PROGRESS NOTE This patient was admitted with symptoms of shortness of breath and chest pain. Patient had elevated troponin suggestive of non-Q-wave myocardial infarction. Patient is sleepy, he is not in any respiratory distress. Patient is afebrile. Blood pressure is 140/67 mmHg. First and second heart sounds are normal. Lungs reveal diffuse scattered wheezes. Patient's BUN is still 67, his creatinine is normal. We will continue to hydrate the patient. Once the BUN is improved, we will discuss with the family members and consider cardiac catheterization for definitive diagnosis. MMODL / IJN: [id number] /
[2017-09-12 16:33] LABS: Glucose,Whole Blood 184 mg/dL (75-99)
[2017-09-12] MEDS: ATORVASTATIN 40 MG TAB PO SCH (19:50)
[2017-09-12] MEDS: MELATONIN 5 MG TABLET PO SCH (19:50)
[2017-09-12 20:55] LABS: Glucose,Whole Blood 213 mg/dL (75-99)
[2017-09-12] MEDS: INSULIN DETEMIR 100 UNIT/ML 10 ML VIAL SQ SCH (21:08)
[2017-09-12] MEDS ORDERED: FUROSEMIDE 10 MG/ML 10 ML VIAL IV STA (21:51)
--- NOTE | 2017-09-12 22:17 | PN ---
PROGRESS NOTE DATE OF SERVICE: 09/12/17 REASON FOR FOLLOWUP: 1. Leukocytosis. 2. Tracheobronchitis and need for antibiotic therapy. INTERVAL HISTORY: The patient is afebrile. He seems to be more awake and alert today. He is breathing comfortably. Denies significant chest pain. Occasional cough. No abdominal pain. No diarrhea. PHYSICAL EXAMINATION: Blood pressure is 132/64 with a pulse of 81, temperature of 97.7. He is 91% on 3 L nasal cannula. General description is an elderly male lying in bed in no distress. Respiratory system: Unlabored breathing, decreased intensive breath sounds. No wheeze. Heart S1, S2. Regular rate and rhythm. Abdomen soft. No tenderness. LABS: White count down to 12,000, BUN of 67, creatinine is 1.11. DIAGNOSTIC IMPRESSION/PLAN: Patient admitted to the hospital with difficulty breathing likely tracheobronchitis, no evidence of any pneumonia clinically. The patient had been off antibiotic therapy and white count showing downward trend. Continue to monitor closely off antibiotics. Continue supportive care. MMODL / IJN: [id number] / MTDD
--- NOTE | 2017-09-12 22:37 | PN ---
PROGRESS NOTE CHIEF COMPLAINT: CHF and acute OH. HISTORY OF PRESENT ILLNESS: This gentleman is doing fairly well. He is comfortable. He is not having chest pain shortness of breath, etc. He is being followed by Cardiology. His blood sugars have been dropping and his insulin has been cut back. PHYSICAL EXAM: His chest is clear. Cardiac is normal. There is no S4. The abdomen is soft, nontender and he is more alert today. IMPRESSION: 1. Congestive heart failure. 2. Chronic obstructive pulmonary disease. 3. Diabetes. 4. Acute myocardial infarction. PLAN: Continue efforts to control his blood sugar while Cardiology continues to follow for his OH. MMODL / IJN: [id number] /
[2017-09-13 05:39] LABS: Glucose,Whole Blood 198 mg/dL (75-99)
[2017-09-13 06:48] LABS: Basophils % (A) 0 %; Eosinophils % (A) 0 %; HCT 44.6 % (39.0-53.0); HGB 13.5 gm/dL (13.0-17.5); Hypochromasia Marked; Lymphocytes # (A) 0.7 k/uL (1.0-4.8); Lymphocytes % (A) 6 %; MCH 30.5 pg (25.0-35.0); MCHC 30.3 g/dL (31.0-37.0); MCV 100.7 fL (80.0-100.0); Macrocytosis Slight; Mean Platelet Volume 8.1; Monocytes # (A) 0.9 k/uL (0-1.0); Monocytes % (A) 7 %; Neutrophils # (A) 10.8 k/uL (1.3-7.7); Neutrophils % (A) 86 %; Platelet Count 197 k/uL (150-450); RBC 4.43 m/uL (4.30-5.90); RDW 14.8 % (11.5-15.5); WBC 12.5 k/uL (3.8-10.6)
[2017-09-13 07:09] LABS: Anion Gap 4 mmol/L; Blood Urea Nitrogen 69 mg/dL (9-20); Calcium 8.9 mg/dL (8.4-10.2); Carbon Dioxide 37 mmol/L (22-30); Chloride 103 mmol/L (98-107); Glucose 152 mg/dL (74-99); Potassium 4.6 mmol/L (3.5-5.1); Sodium 144 mmol/L (137-145)
[2017-09-13] MEDS: INSULIN ASPART 100 UNIT/ML 1 ML 10 ML VIAL SQ SCH ×4 (07:13→17:24)
[2017-09-13] MEDS: CARVEDILOL 12.5 MG TAB PO SCH ×2 (07:13→17:24)
--- NOTE | 2017-09-13 07:20 | XR ---
EXAMINATION TYPE: XR chest 2V DATE OF EXAM: 09/13/2017 COMPARISON: 09/08/2017 HISTORY: Shortness of breath FINDINGS: There are bilateral pleural effusions with cardiomegaly and bibasilar infiltrate. There is a diffuse interstitial pattern. Arthropathy of the shoulders. Atherosclerotic change aorta. IMPRESSION: 1. Bilateral infiltrate and pleural effusion essentially stable. Correlate for underlying CHF.
[2017-09-13] MEDS: LISINOPRIL 20 MG TAB PO SCH (07:45)
[2017-09-13] MEDS: ASPIRIN 81 MG PO SCH (07:46)
[2017-09-13] MEDS: risperiDONE 0.5 MG TAB PO SCH (07:46)
[2017-09-13] MEDS: MAGNESIUM OXIDE 400 MG TAB PO SCH ×2 (07:46→20:10)
[2017-09-13] MEDS: FUROSEMIDE 40 MG TAB PO SCH (07:46)
[2017-09-13] MEDS: CITALOPRAM HYDROBROMIDE 20 MG TAB PO SCH (07:46)
[2017-09-13] MEDS: CHOLECALCIFEROL 1,000 UNIT TAB PO SCH (07:46)
[2017-09-13] MEDS: SODIUM CHLORIDE 0.9% 1,000 ML IV SCH (07:48)
[2017-09-13] MEDS: HEPARIN SOD,PORK IN 0.45% NACL 25,000 UNIT in 0.45% NACL 1 500ML.BAG IV SCH (07:55)
[2017-09-13] MEDS: IPRATROPIUM-ALBUTEROL 3 ML NEB INHALATION SCH ×4 (08:07→20:06)
[2017-09-13] MEDS: DOCUSATE 100 MG CAP PO SCH (10:11)
[2017-09-13] MEDS: FUROSEMIDE 10 MG/ML 4 ML VIAL IV SCH ×2 (10:11→20:10)
--- NOTE | 2017-09-13 10:19 | US ---
EXAMINATION TYPE: US chest DATE OF EXAM: 09/13/2017 COMPARISON: None CLINICAL HISTORY: raquel effusions. EXAM MEASUREMENTS: Right Pleural Effusion fluid pocket: 13.2 cm at time of scan Right skin to fluid thickness: 3.8 cm Left Pleural Effusion fluid pocket: 7.7 cm at time of scan Left skin to fluid thickness: 4.2 cm Right side marked for possible thoracentesis outside the dept. Left side marked for possible thoracentesis outside the dept. Pulmonologists are able to review the images in the patient?s EMR. IMPRESSIONS: 1. Bilateral pleural effusions
[2017-09-13 11:43] LABS: Glucose,Whole Blood 135 mg/dL (75-99)
[2017-09-13] MEDS: amLODIPine 5 MG TAB PO SCH (12:12)
--- NOTE | 2017-09-13 12:59 | PN ---
PROGRESS NOTE This patient is admitted with acute exacerbation of COPD and congestive heart failure. The patient developed respiratory distress during the night and was given IV Lasix. Chest x-ray shows still evidence of mild heart failure, bilateral pleural effusion. His breathing is improved. The patient diuresed about 1200 mL during the night. The patient is not having any chest pain. Patient's condition was discussed with the son. In view of his respiratory status and elevated BUN at present we will recommend to maximize medical therapy. Subsequently as an outpatient, he can be considered for cardiac catheterization when his renal function has improved and the congestive heart failure has improved. Amlodipine 5 mg daily is added to control his blood pressure and we will continue IV Lasix. Ultrasound of the chest will be done to rule out any significant pleural effusion. MMCHAPINCITO / HEVERN: [id number] /
--- NOTE | 2017-09-13 13:08 | P.PN ---
Subjective Progress Note Date: 09/13/17 Principal diagnosis: Large bilateral pleural effusion right more than left Acute hypoxic respiratory failure, acute systolic heart failure, acute non-ST segment elevated [place], nonsustained ventricular tachycardia, COPD severe 09/13/2017, patient seen and evaluated examined during the rounds he still short of breath slightly more stable now compared to earlier this morning when he had a episode of acute shortness of breath bend into respiratory distress test stat chest x-ray was performed and reviewed which revealed bilateral basal atelectasis as well as bilateral pleural effusion ultrasound of the chest has been performed which has been reviewed findings are reviewed with the primary service as well as the cardiovascular services as well, currently patient is on 3 L oxygen still have dry nonproductive, but severity has improved he does get short of breath on minimal activity and exertion, patient remains on IV heparin as per cardiovascular disease services however likely to be stopped later on today 09/12/2017, patient seen and evaluated examined fistula shortness of breath the and cough but however CVAT has improved patient FiO2 is down to 3 L now she remains on IV heparin for non-ST segment elevated [place] no other [place] complains of present denies any chest pain tightness or sputum production patient remains on breathing treatments off of his steroids and antibiotic is being observed closely September 11 2017, patient seen eval examined during the rounds shortness of breath slightly better patient gently being diuresed patient remains on IV heparin for his non-ST segment elevated [place] cardiovascular services following no more episodes of nonsustained ventricular tachycardia has been seen patient has a stage III renal failure and acute on chronic worsening for which she is being monitored and observed on diuretic as well [place] questioning denies any cough or sputum production does of shortness breath on activity and exertion and occasional dry nonproductive cough however is noted my his urine culture results and reports are reviewed no growth so far my last chest x-ray revealed congestive heart failure likely pulmonary edema acute on chronic diastolic heart failure Objective - Vital Signs Vital signs: Vital Signs Temp 97.1 F L 09/13/17 11:30 Pulse 72 09/13/17 12:13 Resp 20 09/13/17 11:30 BP 189/82 09/13/17 11:30 Pulse Ox 98 09/13/17 11:30 Intake & Output 09/12/17 09/13/17 09/13/17 18:59 06:59 18:59 Intake Total 842.421 336 Output Total 800 1600 Balance 42.421 -1600 336 Weight 93.5 kg Intake: Intake, IV Titration 251.421 100 Amount Heparin Sod,Pork in 0.45% 151.421 NaCl 25,000 unit In 0.45 % NaCl 1 500ml.bag @ 9.13 UNITS/KG/HR 19.99 mls/hr IV .Q24H [facility] Rx#: [id number] Sodium Chloride 0.9% 1, 100 000 ml @ 100 mls/hr IV . Q10H [facility] Rx#:[id number] Sodium Chloride 0.9% 1, 100 000 ml @ 20 mls/hr IV . Q24H [facility] Rx#:[id number] Oral 591 236 Output: Urine 800 1600 Uretheral ([place]) 600 Other: Voiding Method Indwelling Catheter Indwelling Catheter Indwelling Catheter - Exam General appearance: alert, less anxious, not in distress as noted previously Head exam: Present: atraumatic, normocephalic, normal inspection Eye exam: Present: normal appearance, PERRL, EOMI. Absent: scleral icterus, conjunctival injection, periorbital swelling ENT exam: Present: normal exam, mucous membranes moist Neck exam: Present: normal inspection. Absent: tenderness, meningismus, lymphadenopathy Respiratory exam: Present: Mild respiratory distress, bilateral fine wheezes, accessory muscle use, decreased breath sounds, bilateral bases with dullness to percussion, prolonged expiratory. Noted scattered basal rales, no rhonchi or stridor noted Cardiovascular Exam: Present: regular rate, normal rhythm, normal heart sounds. Absent: systolic murmur, diastolic murmur, rubs, gallop, clicks GI/Abdominal exam: Present: soft, normal bowel sounds. Absent: distended, tenderness, guarding, rebound, rigid Extremities exam: Present: normal inspection, full ROM, normal capillary refill. Absent: tenderness, +1 pedal edema, no joint swelling, no calf tenderness Back exam: Present: normal inspection Neurological exam: Present: alert, oriented X3, CN II-XII intact Psychiatric exam: Present: normal affect, normal mood Skin exam: Present: warm, dry, intact, normal color. Absent: rash - Labs CBC & Chem 7: 09/13/17 06:08 09/13/17 06:08 Labs: Abnormal Lab Results - Last 24 Hours (Table) 01/09/12/17 09/13/17 Range/Units 16:20 20:53 05:37 WBC (3.8-10.6) k/uL MCV (80.0-100.0) fL MCHC (31.0-37.0) g/dL Neutrophils # (1.3-7.7) k/uL Lymphocytes # (1.0-4.8) k/uL APTT (22.0-30.0) sec Carbon Dioxide (22-30) mmol/L BUN (9-20) mg/dL Glucose (74-99) mg/dL POC Glucose (mg/dL) 184 H 213 H 198 H (75-99) mg/dL 09/13/17 09/13/17 09/13/17 Range/Units 06:08 06:08 06:08 WBC 12.5 H (3.8-10.6) k/uL MCV 100.7 H (80.0-100.0) fL MCHC 30.3 L (31.0-37.0) g/dL Neutrophils # 10.8 H (1.3-7.7) k/uL Lymphocytes # 0.7 L (1.0-4.8) k/uL APTT 59.2 H (22.0-30.0) sec Carbon Dioxide 37 H (22-30) mmol/L BUN 69 H (9-20) mg/dL Glucose 152 H (74-99) mg/dL POC Glucose (mg/dL) (75-99) mg/dL 09/13/17 Range/Units 11:41 WBC (3.8-10.6) k/uL MCV (80.0-100.0) fL MCHC (31.0-37.0) g/dL Neutrophils # (1.3-7.7) k/uL Lymphocytes # (1.0-4.8) k/uL APTT (22.0-30.0) sec Carbon Dioxide (22-30) mmol/L BUN (9-20) mg/dL Glucose (74-99) mg/dL POC Glucose (mg/dL) 135 H (75-99) mg/dL Assessment and Plan Assessment: Bilateral pleural effusion right more than left Acute hypoxic respiratory failure related to acute exacerbation of COPD Acute exacerbation of CHF likely acute systolic heart failure Cardiomyopathy likely ischemic Non-ST segment elevated [place] acute Severe COPD Hypertension hypertensive cardiovascular disease Purulent tracheobronchitis, improved off of Rocephin Plan: Continue breathing treatment with nebulizer therapy, along with the steroid, we' ll resume home medication, continue Lasix, heparin can be discontinued if okay with cardiovascular services will obtain consent for thoracentesis likely will need bilateral will do right side tomorrow procedure explained to the patient including risk alternative and side effect, to observe off of antibiotics continue breathing treatment continue antilipid agent optimize heart failure therapy monitor renal functions closely , Monitor off of steroids Time with Patient: Greater than 30
[2017-09-13 17:05] LABS: Glucose,Whole Blood 158 mg/dL (75-99)
--- NOTE | 2017-09-13 20:05 | PN ---
PROGRESS NOTE DATE OF SERVICE: 09/13/2017 CHIEF COMPLAINT: Acute [place], COPD and CHF with diabetes. HISTORY OF PRESENT ILLNESS: This gentleman is fairly stable. We are waiting further recommendation from Cardiology. They would like to catheterize him, but with his renal failure there is more risk. They may decide to treat him medically. He did started having more shortness of breath during the night and was administered Lasix and his IV rate was decreased. PHYSICAL EXAMINATION: He has rales at the bases. Cardiac exam is unchanged. There is an S4. The abdomen is soft and nontender. Extremities are normal. IMPRESSION: 1. Congestive heart failure. 2. Coronary artery disease. 3. Myocardial infarction. 4. Chronic obstructive pulmonary disease. 5. Diabetes. PLAN: 1. Continue current treatment. 2. Slow IV rate. 3. IV Lasix p.r.n. 4. Await further recommendations by Cardiology. ADRIENNE / MIRZA: [id number] /
[2017-09-13] MEDS: ATORVASTATIN 40 MG TAB PO SCH (20:10)
[2017-09-13] MEDS: MELATONIN 5 MG TABLET PO SCH (20:10)
[2017-09-13 21:09] LABS: Glucose,Whole Blood 114 mg/dL (75-99)
[2017-09-13] MEDS: INSULIN DETEMIR 100 UNIT/ML 10 ML VIAL SQ SCH (21:14)
[2017-09-14 05:59] LABS: Glucose,Whole Blood 56 mg/dL (75-99)
[2017-09-14 06:29] LABS: Glucose,Whole Blood 63 mg/dL (75-99)
[2017-09-14 06:35] LABS: Glucose,Whole Blood 119 mg/dL (75-99)
[2017-09-14] MEDS: INSULIN ASPART 100 UNIT/ML 1 ML 10 ML VIAL SQ SCH ×3 (06:40→17:27)
[2017-09-14] MEDS: CARVEDILOL 12.5 MG TAB PO SCH ×2 (06:41→17:27)
[2017-09-14 06:43] LABS: Basophils % (A) 0 %; Eosinophils # (A) 0.1 k/uL (0-0.7); Eosinophils % (A) 1 %; HCT 46.3 % (39.0-53.0); HGB 14.1 gm/dL (13.0-17.5); Hypochromasia Marked; Lymphocytes # (A) 1.6 k/uL (1.0-4.8); Lymphocytes % (A) 11 %; MCH 30.4 pg (25.0-35.0); MCHC 30.5 g/dL (31.0-37.0); MCV 99.8 fL (80.0-100.0); Macrocytosis Slight; Monocytes # (A) 1.2 k/uL (0-1.0); Monocytes % (A) 9 %; Neutrophils # (A) 11.2 k/uL (1.3-7.7); Neutrophils % (A) 79 %; Platelet Count 203 k/uL (150-450); RBC 4.64 m/uL (4.30-5.90); RDW 14.8 % (11.5-15.5); WBC 14.3 k/uL (3.8-10.6)
[2017-09-14 07:08] LABS: Blood Urea Nitrogen 63 mg/dL (9-20); Calcium 9.4 mg/dL (8.4-10.2); Chloride 101 mmol/L (98-107); Glucose 59 mg/dL (74-99); Potassium 4.2 mmol/L (3.5-5.1); Sodium 146 mmol/L (137-145)
[2017-09-14 07:14] LABS: Anion Gap 3 mmol/L
[2017-09-14 07:24] LABS: Carbon Dioxide 42 mmol/L (22-30)
[2017-09-14] MEDS ORDERED: LIDOCAINE 2% INJ 20 MG/ML (20 ML MDV) ONE (07:56)
--- NOTE | 2017-09-14 08:26 | P.PN ---
Subjective Progress Note Date: 09/14/17 Principal diagnosis: Large bilateral pleural effusion right more than left Acute hypoxic respiratory failure, acute systolic heart failure, acute non-ST segment elevated [place], nonsustained ventricular tachycardia, COPD severe 09/14/2017, patient seen and evaluated examined during the rounds from respiratory standpoint gets short of breath on minimal activity and exertion cuff congestion shortness was stable improved trace edema is present in generalized, ultrasound results and reports are reviewed care plan discussed with the nursing staff and heparin drip has been discontinued we'll plan for thoracentesis later on today, continue other supportive care breathing treatments 09/13/2017, patient seen and evaluated examined during the rounds he still short of breath slightly more stable now compared to earlier this morning when he had a episode of acute shortness of breath bend into respiratory distress test stat chest x-ray was performed and reviewed which revealed bilateral basal atelectasis as well as bilateral pleural effusion ultrasound of the chest has been performed which has been reviewed findings are reviewed with the primary service as well as the cardiovascular services as well, currently patient is on 3 L oxygen still have dry nonproductive, but severity has improved he does get short of breath on minimal activity and exertion, patient remains on IV heparin as per cardiovascular disease services however likely to be stopped later on today 09/12/2017, patient seen and evaluated examined fistula shortness of breath the and cough but however CVAT has improved patient FiO2 is down to 3 L now she remains on IV heparin for non-ST segment elevated [place] no other [place] complains of present denies any chest pain tightness or sputum production patient remains on breathing treatments off of his steroids and antibiotic is being observed closely September 11 2017, patient seen eval examined during the rounds shortness of breath slightly better patient gently being diuresed patient remains on IV heparin for his non-ST segment elevated [place] cardiovascular services following no more episodes of nonsustained ventricular tachycardia has been seen patient has a stage III renal failure and acute on chronic worsening for which she is being monitored and observed on diuretic as well [employer] Bransonssori questioning denies any cough or sputum production does of shortness breath on activity and exertion and occasional dry nonproductive cough however is noted my his urine culture results and reports are reviewed no growth so far my last chest x-ray revealed congestive heart failure likely pulmonary edema acute on chronic diastolic heart failure Objective - Vital Signs Vital signs: Vital Signs Temp 96.7 F L 09/14/17 07:45 Pulse 62 09/14/17 07:45 Resp 25 H 09/14/17 07:45 BP 135/70 09/14/17 07:45 Pulse Ox 93 L 09/14/17 03:30 Intake & Output 09/13/17 09/14/17 09/14/17 18:59 06:59 18:59 Intake Total 1736 360 Output Total 1300 1700 Balance 436 -1700 360 Weight 106.9 kg Intake: Intake, IV Titration 100 Amount Sodium Chloride 0.9% 1, 100 000 ml @ 20 mls/hr IV . Q24H [facility] Rx#:[id number] Oral 1636 360 Output: Urine 1300 1700 Other: Voiding Method Indwelling Catheter Indwelling Catheter # Bowel Movements 1 - Exam General appearance: alert, less anxious, not in distress as noted previously Head exam: Present: atraumatic, normocephalic, normal inspection Eye exam: Present: normal appearance, PERRL, EOMI. Absent: scleral icterus, conjunctival injection, periorbital swelling ENT exam: Present: normal exam, mucous membranes moist Neck exam: Present: normal inspection. Absent: tenderness, meningismus, lymphadenopathy Respiratory exam: Present: Mild respiratory distress, bilateral fine wheezes, accessory muscle use, decreased breath sounds, bilateral bases with dullness to percussion, prolonged expiratory. Noted scattered basal rales, no rhonchi or stridor noted Cardiovascular Exam: Present: regular rate, normal rhythm, normal heart sounds. Absent: systolic murmur, diastolic murmur, rubs, gallop, clicks GI/Abdominal exam: Present: soft, normal bowel sounds. Absent: distended, tenderness, guarding, rebound, rigid Extremities exam: Present: normal inspection, full ROM, normal capillary refill. Absent: tenderness, +1 pedal edema, no joint swelling, no calf tenderness Back exam: Present: normal inspection Neurological exam: Present: alert, oriented X3, CN II-XII intact Psychiatric exam: Present: normal affect, normal mood Skin exam: Present: warm, dry, intact, normal color. Absent: rash - Labs CBC & Chem 7: 09/14/17 06:14 09/14/17 06:14 Labs: Abnormal Lab Results - Last 24 Hours (Table) 09/13/17 09/13/17 09/13/17 Range/Units 11:41 17:03 21:08 WBC (3.8-10.6) k/uL MCHC (31.0-37.0) g/dL Neutrophils # (1.3-7.7) k/uL Monocytes # (0-1.0) k/uL Sodium (137-145) mmol/L Carbon Dioxide (22-30) mmol/L BUN (9-20) mg/dL Glucose (74-99) mg/dL POC Glucose (mg/dL) 135 H 158 H 114 H (75-99) mg/dL 09/14/17 09/14/17 09/14/17 Range/Units 05:57 06:14 06:14 WBC 14.3 H (3.8-10.6) k/uL MCHC 30.5 L (31.0-37.0) g/dL Neutrophils # 11.2 H (1.3-7.7) k/uL Monocytes # 1.2 H (0-1.0) k/uL Sodium 146 H (137-145) mmol/L Carbon Dioxide 42 H* (22-30) mmol/L BUN 63 H (9-20) mg/dL Glucose 59 L (74-99) mg/dL POC Glucose (mg/dL) 56 L (75-99) mg/dL 09/14/17 09/14/17 Range/Units 06:17 06:32 WBC (3.8-10.6) k/uL MCHC (31.0-37.0) g/dL Neutrophils # (1.3-7.7) k/uL Monocytes # (0-1.0) k/uL Sodium (137-145) mmol/L Carbon Dioxide (22-30) mmol/L BUN (9-20) mg/dL Glucose (74-99) mg/dL POC Glucose (mg/dL) 63 L 119 H (75-99) mg/dL Assessment and Plan Assessment: Bilateral pleural effusion right more than left Acute hypoxic respiratory failure related to acute exacerbation of COPD Acute exacerbation of CHF likely acute systolic heart failure Cardiomyopathy likely ischemic Non-ST segment elevated [place] acute Severe COPD Hypertension hypertensive cardiovascular disease Purulent tracheobronchitis, improved off of Rocephin Plan: Continue breathing treatment with nebulizer therapy, along with the steroid, we' ll continue home medication, continue Lasix, heparin has been discontinued i will obtain consent for thoracentesis likely will need bilateral will do right side today procedure explained to the patient including risk alternative and side effect, to observe off of antibiotics continue breathing treatment continue antilipid agent optimize heart failure therapy monitor renal functions closely , Monitor off of steroids Time with Patient: Greater than 30
[2017-09-14] MEDS: IPRATROPIUM-ALBUTEROL 3 ML NEB INHALATION SCH ×4 (08:53→20:21)
--- NOTE | 2017-09-14 09:36 | P.PCN ---
Date of Procedure: 09/14/17 Preoperative Diagnosis: Bilateral pleural effusion right more than left, congestive heart failure acute systolic heart failure, acute pulmonary edema, non-ST segment elevated [place] Postoperative Diagnosis: As above Procedure(s) Performed: Right thoracentesis Anesthesia: local Surgeon: Ramírez Henry Estimated Blood Loss (ml): 0 Condition: stable Disposition: floor Indications for Procedure: Shortness of breath, bilateral pleural effusion right more than left, non-ST segment elevated [place], ischemic cardiomyopathy and congestive heart failure acute systolic heart failure Operative Findings: As below Description of Procedure: Patient prepared and draped in the usual fashion procedure explained to the patient at length ultrasound was utilized to shanon the maximum depth of the fluid one percent lidocaine was infiltrated into the posterior thoracic wall, after anesthetizing anesthetizing the wall stab incision of less than 1/8 of a centimeter was performed pleural space was Napoleon III gauge 24 needle followed by placement of catheter in needle needle was withdrawn catheter left in position and 1.8 L of orange pleural fluid aspirated patient tolerated procedure well no complication noted fluid is being sent for Gram stain and culture cytology cell count and differential
[2017-09-14 10:10] LABS: Total Protein 5.5 g/dL (6.3-8.2)
--- NOTE | 2017-09-14 10:10 | XR ---
EXAMINATION TYPE: XR chest 1V portable DATE OF EXAM: 09/14/2017 COMPARISON: NONE INDICATION: Postthoracentesis right side TECHNIQUE: Single frontal view of the chest is obtained. FINDINGS: The heart size is enlarged. The pulmonary vasculature is normal. This is diminished from comparison The lungs are clear. No pneumothorax is evident. Small left pleural effusion may be present. Some infiltrate is at the lef t base. Correlate for atelectasis or pneumonia. IMPRESSION: 1. Left pleural effusion with a left lower lobe infiltrate. Correlate for small left pleural effusion , atelectasis and pneumonia. 2. No pneumothorax post right-sided thoracentesis.
[2017-09-14] MEDS: amLODIPine 5 MG TAB PO SCH (10:43)
[2017-09-14] MEDS: ASPIRIN 81 MG PO SCH (10:45)
[2017-09-14] MEDS: CHOLECALCIFEROL 1,000 UNIT TAB PO SCH (10:45)
[2017-09-14] MEDS: DOCUSATE 100 MG CAP PO SCH (10:46)
[2017-09-14] MEDS: CITALOPRAM HYDROBROMIDE 20 MG TAB PO SCH (10:46)
[2017-09-14] MEDS: LISINOPRIL 20 MG TAB PO SCH (10:47)
[2017-09-14] MEDS: MAGNESIUM OXIDE 400 MG TAB PO SCH ×2 (10:47→20:01)
[2017-09-14] MEDS: risperiDONE 0.5 MG TAB PO SCH (10:47)
[2017-09-14 11:29] LABS: Glucose,Whole Blood 229 mg/dL (75-99)
[2017-09-14 13:33] LABS: Appearance,BF Cloudy; Color,BF Orange; Nucleated Cells, Body Fluid 160 /uL; RBC, Body Fluid 2760 /uL
[2017-09-14 13:37] LABS: Mononuclear WBC,Body Fluid 87 %; Polynuclear WBC,Body Fluid 13 %; Total Cells Counted,Body Fluid 100
[2017-09-14] MEDS: FUROSEMIDE 10 MG/ML 4 ML VIAL IV SCH ×2 (13:54→20:01)
--- NOTE | 2017-09-14 14:34 | CDI ---
Last Revision, July 2017 Documentation Clarification Form Date: 09/14/2017 2:24:00 PM From: Latrice Solares [facility], CCDS Admit Date: 09/08/2017 11:43:00 AM Patient Name: Caesar Bennett Visit Number: [id number] Discharge Date: ATTENTION: The Clinical Documentation Specialists (CDI) and [facility] Coding Staff appreciate your assistance in clarifying documentation. Please respond to the clarification below the line at the bottom and electronically sign. The CDI & [facility] Coding staff will review the response and follow-up if needed. Please note: Queries are made part of the Legal Health Record. If you have any questions, please contact the author of this message via ITS. Dr. Brandon Rosen: Asthma is documented in the 09/09 pulmonary progress note as Dyspnea secondary to asthma with acute exacerbation. Patient history/risk factors: Asthma, COPD, CHF Clinical Indicators: Patient presented with SOB from longterm. Radiology: CXR: Correlate for CHF w/possible associated effusion. Vital Signs: P 63 - 51*, R 26^, PO 88 ra Home meds: Albuterol neb INH, Insulin sc, po Lasix Treatment: IV Solumedrol, IV Lasix, IV Rocephin, neb txs, IV Heparin, O2 3Lnc. In your professional opinion, can you please further specify the following, if known? With: Acute Exacerbation Status asthmaticus Acute lower respiratory infection COPD (specify with or without exacerbation) Chronic obstructive bronchitis Other, please specify Unable to determine Severity: Mild intermittent Mild persistent Moderate persistent Severe persistent Other, please specify Unable to determine Form or Type: Cough variant Childhood Exercise induced bronchospasm Extrinsic allergic Idiosyncratic Intrinsic nonallergic Late-onset Mixed Other, please specify Unable to determine Please continue to document in your progress notes and discharge summary in order to capture severity of illness and risk of mortality. Include clinical findings that support your diagnosis. ___acte exacerbation moderate persistent mixed asthma MTDD
[2017-09-14 16:15] LABS: Glucose,Whole Blood 249 mg/dL (75-99)
[2017-09-14] MEDS: SODIUM CHLORIDE 0.9% 1,000 ML IV SCH (17:09)
[2017-09-14] MEDS ORDERED: busPIRone HCl 5 MG TAB PO PRN (17:34)
[2017-09-14 17:48] LABS: Total Protein, Body Fluid 720 mg/dL
[2017-09-14] MEDS: ACETAMINOPHEN TAB 325 MG TAB PO PRN (17:52)
[2017-09-14] MEDS: ATORVASTATIN 40 MG TAB PO SCH (20:01)
[2017-09-14] MEDS: MELATONIN 5 MG TABLET PO SCH (20:01)
[2017-09-14 21:04] LABS: Glucose,Whole Blood 185 mg/dL (75-99)
[2017-09-14] MEDS: INSULIN DETEMIR 100 UNIT/ML 10 ML VIAL SQ SCH (21:05)
--- NOTE | 2017-09-14 22:36 | PN ---
PROGRESS NOTE DATE OF SERVICE: 09/14/2017 CHIEF COMPLAINT: Acute [place], CHF, COPD and diabetes. HISTORY OF PRESENT ILLNESS: This gentleman has become slightly agitated. He had thoracentesis done today for over a liter and a half of fluid. His blood sugars have been fluctuating and were actually slightly low this morning. On physical examination, chest demonstrates fairly good breath sounds. Cardiac exam is normal. The abdomen is soft and nontender. IMPRESSION: 1. Congestive heart failure. 2. Pleural effusion. 3. Chronic obstructive pulmonary disease. 4. Coronary artery disease. 5. Myocardial infarction. 6. Diabetes mellitus. PLAN: 1. Continue efforts to control blood sugars. 2. Await further guidance from Pulmonology and Cardiology regarding discharge. MMODL / IJN: [id number] /
--- NOTE | 2017-09-14 22:57 | PN ---
PROGRESS NOTE This patient was admitted with acute respiratory distress secondary to acute exacerbation of COPD and congestive heart failure. The patient underwent a thoracentesis today and about 1.8 L of the fluid was removed. The patient is feeling better. His breathing is improved. Heart rate is 75 per minute, blood pressure is 138/70 mmHg. Oxygen saturation is 98%. The patient's respirations are not labored. First and second heart sounds are normal. Lungs reveal bilateral scattered wheezes. Chest x-ray shows improvement in the pleural effusion on the right side. The patient's BUN is 63 and creatinine is 9.6, I will continue the current medications. We will discuss with Dr. Henry whether patient needs a thoracentesis on the left side. We will continue IV Lasix for next couple of days. MMNAZL / IJN: [id number] /
[2017-09-15 01:51] LABS: Glucose,Whole Blood 205 mg/dL (75-99)
[2017-09-15] MEDS: ACETAMINOPHEN TAB 325 MG TAB PO PRN (02:01)
[2017-09-15 05:56] LABS: Glucose,Whole Blood 96 mg/dL (75-99)
[2017-09-15] MEDS: CARVEDILOL 12.5 MG TAB PO SCH ×2 (06:34→17:23)
[2017-09-15 07:00] LABS: Basophils % (A) 0 %; Eosinophils # (A) 0.1 k/uL (0-0.7); Eosinophils % (A) 1 %; HCT 40.4 % (39.0-53.0); HGB 12.5 gm/dL (13.0-17.5); Hypochromasia Moderate; Lymphocytes # (A) 1.4 k/uL (1.0-4.8); Lymphocytes % (A) 11 %; MCH 30.6 pg (25.0-35.0); MCHC 30.8 g/dL (31.0-37.0); MCV 99.3 fL (80.0-100.0); Macrocytosis Slight; Mean Platelet Volume 8.1; Monocytes # (A) 0.9 k/uL (0-1.0); Monocytes % (A) 7 %; Neutrophils % (A) 80 %; Platelet Count 152 k/uL (150-450); RBC 4.07 m/uL (4.30-5.90); RDW 14.9 % (11.5-15.5); WBC 12.5 k/uL (3.8-10.6)
[2017-09-15] MEDS: INSULIN ASPART 100 UNIT/ML 1 ML 10 ML VIAL SQ SCH ×2 (07:07→16:37)
[2017-09-15] MEDS: IPRATROPIUM-ALBUTEROL 3 ML NEB INHALATION SCH ×4 (08:28→20:01)
--- NOTE | 2017-09-15 08:35 | P.PN ---
Subjective Progress Note Date: 09/15/17 Principal diagnosis: Large bilateral pleural effusion right more than left Acute hypoxic respiratory failure, acute systolic heart failure, acute non-ST segment elevated [place], nonsustained ventricular tachycardia, COPD severe 09/15/2017, patient seen and evaluated examined during the rounds clinically doing slightly better respiratory status improved patient is status post thoracentesis and 1.8 L of pleural fluid has been removed, preliminary results of the pleural fluid reviewed consistent with transudative effusion related to congestive heart failure related to acute on chronic systolic heart failure 09/14/2017, patient seen and evaluated examined during the rounds from respiratory standpoint gets short of breath on minimal activity and exertion cuff congestion shortness was stable improved trace edema is present in generalized, ultrasound results and reports are reviewed care plan discussed with the nursing staff and heparin drip has been discontinued we'll plan for thoracentesis later on today, continue other supportive care breathing treatments 09/13/2017, patient seen and evaluated examined during the rounds he still short of breath slightly more stable now compared to earlier this morning when he had a episode of acute shortness of breath bend into respiratory distress test stat chest x-ray was performed and reviewed which revealed bilateral basal atelectasis as well as bilateral pleural effusion ultrasound of the chest has been performed which has been reviewed findings are reviewed with the primary service as well as the cardiovascular services as well, currently patient is on 3 L oxygen still have dry nonproductive, but severity has improved he does get short of breath on minimal activity and exertion, patient remains on IV heparin as per cardiovascular disease services however likely to be stopped later on today 09/12/2017, patient seen and evaluated examined fistula shortness of breath the and cough but however CVAT has improved patient FiO2 is down to 3 L now she remains on IV heparin for non-ST segment elevated MA no other [place] complains of present denies any chest pain tightness or sputum production patient remains on breathing treatments off of his steroids and antibiotic is being observed closely September 11 2017, patient seen eval examined during the rounds shortness of breath slightly better patient gently being diuresed patient remains on IV heparin for his non-ST segment elevated MA cardiovascular services following no more episodes of nonsustained ventricular tachycardia has been seen patient has a stage III renal failure and acute on chronic worsening for which she is being monitored and observed on diuretic as well Montessori questioning denies any cough or sputum production does of shortness breath on activity and exertion and occasional dry nonproductive cough however is noted my his urine culture results and reports are reviewed no growth so far my last chest x-ray revealed congestive heart failure likely pulmonary edema acute on chronic diastolic heart failure Objective - Vital Signs Vital signs: Vital Signs Temp 97.5 F L 09/15/17 07:42 Pulse 61 09/15/17 07:42 Resp 22 09/15/17 07:42 BP 127/58 09/15/17 07:42 Pulse Ox 94 L 09/15/17 07:42 Intake & Output 09/14/17 09/15/17 09/15/17 18:59 06:59 18:59 Intake Total 478 600 Output Total 1400 950 Balance -922 -350 Weight 106.9 kg 102.6 kg Intake: Oral 478 600 Output: Urine 1400 950 Other: Voiding Method Indwelling Catheter Indwelling Catheter # Voids 1 - Exam General appearance: alert, less anxious, not in distress as noted previously Head exam: Present: atraumatic, normocephalic, normal inspection Eye exam: Present: normal appearance, PERRL, EOMI. Absent: scleral icterus, conjunctival injection, periorbital swelling ENT exam: Present: normal exam, mucous membranes moist Neck exam: Present: normal inspection. Absent: tenderness, meningismus, lymphadenopathy Respiratory exam: Present: Mild respiratory distress, bilateral fine wheezes, accessory muscle use, decreased breath sounds, bilateral bases with dullness to percussion, prolonged expiratory. Noted scattered basal rales, no rhonchi or stridor noted, improved air entry on the right side has been noted compared to prior exam Cardiovascular Exam: Present: regular rate, normal rhythm, normal heart sounds. Absent: systolic murmur, diastolic murmur, rubs, gallop, clicks GI/Abdominal exam: Present: soft, normal bowel sounds. Absent: distended, tenderness, guarding, rebound, rigid Extremities exam: Present: normal inspection, full ROM, normal capillary refill. Absent: tenderness, +1 pedal edema, no joint swelling, no calf tenderness Back exam: Present: normal inspection Neurological exam: Present: alert, oriented X3, CN II-XII intact Psychiatric exam: Present: normal affect, normal mood Skin exam: Present: warm, dry, intact, normal color. Absent: rash - Labs CBC & Chem 7: 09/15/17 06:17 09/14/17 06:14 Labs: Abnormal Lab Results - Last 24 Hours (Table) 09/14/17 09/14/17 09/14/17 Range/Units 06:14 11:19 16:12 WBC (3.8-10.6) k/uL RBC (4.30-5.90) m/uL Hgb (13.0-17.5) gm/dL MCHC (31.0-37.0) g/dL Neutrophils # (1.3-7.7) k/uL POC Glucose (mg/dL) 229 H 249 H (75-99) mg/dL Lactate Dehydrogenase 658 H (313-618) U/L Total Protein 5.5 L (6.3-8.2) g/dL 09/14/17 09/15/17 09/15/17 Range/Units 21:00 01:49 06:17 WBC 12.5 H (3.8-10.6) k/uL RBC 4.07 L (4.30-5.90) m/uL Hgb 12.5 L (13.0-17.5) gm/dL MCHC 30.8 L (31.0-37.0) g/dL Neutrophils # 10.0 H (1.3-7.7) k/uL POC Glucose (mg/dL) 185 H 205 H (75-99) mg/dL Lactate Dehydrogenase (313-618) U/L Total Protein (6.3-8.2) g/dL Microbiology - Last 24 Hours (Table) 09/14/17 09:30 Acid Fast Bacilli Smear - Final Pleural Fluid Acid Fast Bacilli Culture - Preliminary 09/14/17 09:30 Gram Stain - Preliminary Pleural Fluid Body Fluid Culture - Preliminary 09/14/17 09:30 Fungal Culture - Preliminary Pleural Fluid Assessment and Plan Assessment: Bilateral pleural effusion right more than left related to congestive heart failure which is due to acute systolic heart failure Acute hypoxic respiratory failure related to acute exacerbation of COPD and acute systolic heart failure Acute exacerbation of CHF likely acute systolic heart failure with ejection fraction of 45% Cardiomyopathy likely ischemic Non-ST segment elevated MA acute Severe COPD Hypertension hypertensive cardiovascular disease Purulent tracheobronchitis, improved off of Rocephin Plan: Continue breathing treatment with nebulizer therapy, will monitor observe off of steroid, we'll continue home medication, continue Lasix, heparin has been discontinued i will obtain repeat ultrasound of chest bilateral for follow-up to demonstrate reaccumulation of fluid and for need of thoracentesis, continued to observe off of antibiotics continue breathing treatment continue antilipid agent optimize heart failure therapy monitor renal functions closely Time with Patient: Greater than 30
[2017-09-15] MEDS: CHOLECALCIFEROL 1,000 UNIT TAB PO SCH (08:36)
[2017-09-15] MEDS: ASPIRIN 81 MG PO SCH (08:36)
[2017-09-15] MEDS: amLODIPine 5 MG TAB PO SCH (08:36)
[2017-09-15] MEDS: DOCUSATE 100 MG CAP PO SCH (08:37)
[2017-09-15] MEDS: CITALOPRAM HYDROBROMIDE 20 MG TAB PO SCH (08:37)
[2017-09-15] MEDS: FUROSEMIDE 10 MG/ML 4 ML VIAL IV SCH ×2 (08:37→20:51)
[2017-09-15] MEDS: LISINOPRIL 20 MG TAB PO SCH (08:37)
[2017-09-15] MEDS: risperiDONE 0.5 MG TAB PO SCH (08:38)
[2017-09-15] MEDS: MAGNESIUM OXIDE 400 MG TAB PO SCH ×2 (08:38→20:51)
[2017-09-15] MEDS: SODIUM CHLORIDE 0.9% 1,000 ML IV SCH (08:40)
[2017-09-15 10:52] LABS: Blood Urea Nitrogen 61 mg/dL (9-20); Calcium 8.6 mg/dL (8.4-10.2); Chloride 100 mmol/L (98-107); Glucose 89 mg/dL (74-99); Potassium 4.1 mmol/L (3.5-5.1); Sodium 144 mmol/L (137-145)
[2017-09-15 10:58] LABS: Anion Gap 1 mmol/L
[2017-09-15 11:03] LABS: Carbon Dioxide 43 mmol/L (22-30)
[2017-09-15 11:28] LABS: Glucose,Whole Blood 127 mg/dL (75-99)
--- NOTE | 2017-09-15 13:58 | XR ---
EXAMINATION TYPE: XR chest 2V DATE OF EXAM: 09/15/2017 COMPARISON: Prior chest x-ray dated 09/14/2017 HISTORY: Pleural effusion TECHNIQUE: Frontal and lateral views of the chest are obtained. FINDINGS: Patient is rotated. Findings are similar. There is blunting of the costophrenic angles, in creased retrocardiac density with obscured left hemidiaphragm and heart border. There are overlying c ardiac leads. No evident pneumothorax. IMPRESSION: Pleural effusions left greater than right. Rotated exam. There may be some slight improv ement in aeration.
--- NOTE | 2017-09-15 14:46 | PN ---
PROGRESS NOTE This patient has been admitted with acute respiratory distress secondary to acute exacerbation of COPD and congestive cardiac failure. He is feeling better. Patient is comfortable,.he is not in any respiratory distress. Patient denies any orthopnea or PND. The patient is afebrile, heart rate is 68 per minute, blood pressure is 134/63 mmHg. Respirations are not labored. First and second heart sounds are normal. Lungs are fairly clear to auscultation and percussion. There is no evidence of any significant leg edema. Patient's BUN is 61. We will continue IV Lasix today, tomorrow patient can be switched to the p.o. Lasix and be discharged home. We will repeat the chest x-ray tomorrow. MMODL / IJN: [id number] /
[2017-09-15 16:17] LABS: Glucose,Whole Blood 139 mg/dL (75-99)
[2017-09-15] MEDS: MELATONIN 5 MG TABLET PO SCH (20:51)
[2017-09-15] MEDS: ATORVASTATIN 40 MG TAB PO SCH (20:51)
[2017-09-15] MEDS: INSULIN DETEMIR 100 UNIT/ML 10 ML VIAL SQ SCH (20:52)
--- NOTE | 2017-09-15 21:28 | PN ---
PROGRESS NOTE CHIEF COMPLAINT: Acute [place], CHF, pleural effusion, diabetes and COPD. HISTORY OF PRESENT ILLNESS: This gentleman has been fairly stable and we are awaiting guidelines from Cardiology. He can probably go home on medical treatment. PHYSICAL EXAMINATION: Breath sounds are diminished at the bases. Cardiac exam is normal. Abdomen is soft, nontender. EXTREMITIES: Normal. IMPRESSION: 1. Acute congestive heart failure. 2. Acute myocardial infarction. 3. Chronic obstructive pulmonary disease. 4. Poorly controlled diabetes. 5. Pleural effusion. PLAN: Continue with management and await discharge plan or recommendations from Cardiology. MMODL / IJN: [id number] /
[2017-09-15 21:39] LABS: Glucose,Whole Blood 204 mg/dL (75-99)
[2017-09-16 06:04] LABS: Glucose,Whole Blood 91 mg/dL (75-99)
[2017-09-16] MEDS: CARVEDILOL 12.5 MG TAB PO SCH ×2 (06:34→17:40)
[2017-09-16 07:12] LABS: Blood Urea Nitrogen 58 mg/dL (9-20); Calcium 8.3 mg/dL (8.4-10.2); Chloride 99 mmol/L (98-107); Glucose 62 mg/dL (74-99); Potassium 4.1 mmol/L (3.5-5.1); Sodium 145 mmol/L (137-145)
[2017-09-16 07:19] LABS: Anion Gap 2 mmol/L
[2017-09-16 07:20] LABS: Carbon Dioxide 44 mmol/L (22-30)
[2017-09-16] MEDS: amLODIPine 5 MG TAB PO SCH (07:58)
--- NOTE | 2017-09-16 07:58 | XR ---
EXAMINATION TYPE: XR chest 1V portable DATE OF EXAM: 09/16/2017 HISTORY: follow-up pleural effusion. REFERENCE: Previous study dated 09/15/2017. FINDINGS: The heart is enlarged. There is vascular congestion and pulmonary edema. There are bilatera l effusions, greater on the left than the right. IMPRESSION: WORSENING CHANGES OF HEART FAILURE.
[2017-09-16] MEDS: ASPIRIN 81 MG PO SCH (07:59)
[2017-09-16] MEDS: MAGNESIUM OXIDE 400 MG TAB PO SCH ×2 (07:59→21:09)
[2017-09-16] MEDS: FUROSEMIDE 10 MG/ML 4 ML VIAL IV SCH ×2 (07:59→21:09)
[2017-09-16] MEDS: LISINOPRIL 20 MG TAB PO SCH (07:59)
[2017-09-16] MEDS: DOCUSATE 100 MG CAP PO SCH (07:59)
[2017-09-16] MEDS: CHOLECALCIFEROL 1,000 UNIT TAB PO SCH (07:59)
[2017-09-16] MEDS: CITALOPRAM HYDROBROMIDE 20 MG TAB PO SCH (07:59)
[2017-09-16] MEDS: risperiDONE 0.5 MG TAB PO SCH (08:00)
[2017-09-16] MEDS: INSULIN ASPART 100 UNIT/ML 1 ML 10 ML VIAL SQ SCH ×2 (08:02→13:30)
[2017-09-16] MEDS: IPRATROPIUM-ALBUTEROL 3 ML NEB INHALATION SCH ×5 (09:03→20:47)
[2017-09-16] MEDS: SODIUM CHLORIDE 0.9% 1,000 ML IV SCH (11:38)
[2017-09-16 12:11] LABS: Glucose,Whole Blood 51 mg/dL (75-99)
[2017-09-16 12:30] LABS: Glucose,Whole Blood 79 mg/dL (75-99)
--- NOTE | 2017-09-16 14:32 | PN ---
PROGRESS NOTE This patient is being treated for respiratory distress. He is feeling better. Today he is sleepy. Blood pressure is 132/82 mmHg. First and second heart sounds are normal. Lungs are clinically clear to auscultation and percussion. Patient's BUN is 58, creatinine 0.9. Continue the current medications. We will switch him to the p.o. Lasix from tomorrow. MMCHAPINCITO / IJN: [id number] /
--- NOTE | 2017-09-16 15:17 | PN ---
PROGRESS NOTE DATE OF SERVICE: 09/16/2017 CHIEF COMPLAINT: Congestive heart failure, coronary artery disease, renal failure and diabetes. HISTORY OF PRESENT ILLNESS: There has been no interval change in this gentleman's condition. We are still waiting for any further recommendations from Cardiology. However, it is likely that he will wind up being treated medically and probably should be set up to go to a senior living. PHYSICAL EXAMINATION: He is awake but a little bit lethargic. Breath sounds are heard on both sides, but they are diminished. Cardiac exam is unchanged. The abdomen is soft and protuberant. IMPRESSION: 1. Acute myocardial infarction. 2. Congestive heart failure. 3. Chronic obstructive pulmonary disease. 4. Diabetes. PLAN: Try to continue to stabilize and start thinking about senior living placement. MMCHAPINCITO / HEVERN: [id number] /
[2017-09-16 16:41] LABS: Glucose,Whole Blood 192 mg/dL (75-99)
[2017-09-16 21:08] LABS: Glucose,Whole Blood 255 mg/dL (75-99)
[2017-09-16] MEDS: ATORVASTATIN 40 MG TAB PO SCH (21:09)
[2017-09-16] MEDS: MELATONIN 5 MG TABLET PO SCH (21:09)
[2017-09-16] MEDS: INSULIN DETEMIR 100 UNIT/ML 10 ML VIAL SQ SCH (21:11)
[2017-09-17 05:49] LABS: Glucose,Whole Blood 133 mg/dL (75-99)
[2017-09-17 06:38] LABS: Blood Urea Nitrogen 52 mg/dL (9-20); Calcium 8.6 mg/dL (8.4-10.2); Glucose 142 mg/dL (74-99); Sodium 144 mmol/L (137-145)
[2017-09-17] MEDS: CARVEDILOL 12.5 MG TAB PO SCH ×2 (06:41→17:45)
[2017-09-17 06:48] LABS: Carbon Dioxide 46 mmol/L (22-30)
[2017-09-17 06:49] LABS: Anion Gap 0 mmol/L; Chloride 98 mmol/L (98-107)
[2017-09-17] MEDS: INSULIN ASPART 100 UNIT/ML 1 ML 10 ML VIAL SQ SCH ×2 (07:44→11:48)
[2017-09-17] MEDS: ASPIRIN 81 MG PO SCH (07:45)
[2017-09-17] MEDS: DOCUSATE 100 MG CAP PO SCH (07:45)
[2017-09-17] MEDS: CHOLECALCIFEROL 1,000 UNIT TAB PO SCH (07:45)
[2017-09-17] MEDS: CITALOPRAM HYDROBROMIDE 20 MG TAB PO SCH (07:45)
[2017-09-17] MEDS: amLODIPine 5 MG TAB PO SCH (07:45)
[2017-09-17] MEDS: risperiDONE 0.5 MG TAB PO SCH (07:46)
[2017-09-17] MEDS: LISINOPRIL 20 MG TAB PO SCH (07:46)
[2017-09-17] MEDS: MAGNESIUM OXIDE 400 MG TAB PO SCH ×2 (07:46→20:44)
[2017-09-17] MEDS: FUROSEMIDE 10 MG/ML 4 ML VIAL IV SCH (07:46)
[2017-09-17] MEDS: SODIUM CHLORIDE 0.9% 1,000 ML IV SCH (07:47)
--- NOTE | 2017-09-17 08:00 | P.PN ---
Subjective Progress Note Date: 09/16/17 (late entry note) Principal diagnosis: Large bilateral pleural effusion right more than left Acute hypoxic respiratory failure, acute systolic heart failure, acute non-ST segment elevated [place], nonsustained ventricular tachycardia, COPD severe 09/16/2017, patient seen and evaluated examined during the rounds clinically from respiratory standpoint doing better patient remains on supplemental oxygen cough congestion shortness breath stable patient continued to get breathing treatment and obvious distress is present at times patient becomes anxious and agitated most of time remains fairly composed, care plan discussed with the cardiovascular services plan is to continue supportive care noted aggressive intervention are being considered at this point of time 09/15/2017, patient seen and evaluated examined during the rounds clinically doing slightly better respiratory status improved patient is status post thoracentesis and 1.8 L of pleural fluid has been removed, preliminary results of the pleural fluid reviewed consistent with transudative effusion related to congestive heart failure related to acute on chronic systolic heart failure 09/14/2017, patient seen and evaluated examined during the rounds from respiratory standpoint gets short of breath on minimal activity and exertion cuff congestion shortness was stable improved trace edema is present in generalized, ultrasound results and reports are reviewed care plan discussed with the nursing staff and heparin drip has been discontinued we'll plan for thoracentesis later on today, continue other supportive care breathing treatments 09/13/2017, patient seen and evaluated examined during the rounds he still short of breath slightly more stable now compared to earlier this morning when he had a episode of acute shortness of breath bend into respiratory distress test stat chest x-ray was performed and reviewed which revealed bilateral basal atelectasis as well as bilateral pleural effusion ultrasound of the chest has been performed which has been reviewed findings are reviewed with the primary service as well as the cardiovascular services as well, currently patient is on 3 L oxygen still have dry nonproductive, but severity has improved he does get short of breath on minimal activity and exertion, patient remains on IV heparin as per cardiovascular disease services however likely to be stopped later on today 09/12/2017, patient seen and evaluated examined fistula shortness of breath the and cough but however CVAT has improved patient FiO2 is down to 3 L now she remains on IV heparin for non-ST segment elevated [place] no other [place] complains of present denies any chest pain tightness or sputum production patient remains on breathing treatments off of his steroids and antibiotic is being observed closely Lisa 22 2018, patient seen eval examined during the rounds shortness of breath slightly better patient gently being diuresed patient remains on IV heparin for his non-ST segment elevated [place] cardiovascular services following no more episodes of nonsustained ventricular tachycardia has been seen patient has a stage III renal failure and acute on chronic worsening for which she is being monitored and observed on diuretic as well [facility]ess[facility] questioning denies any cough or sputum production does of shortness breath on activity and exertion and occasional dry nonproductive cough however is noted my his urine culture results and reports are reviewed no growth so far my last chest x-ray revealed congestive heart failure likely pulmonary edema acute on chronic diastolic heart failure Objective - Vital Signs Vital signs: Vital Signs Temp 97.6 F 09/17/17 04:00 Pulse 70 09/17/17 04:00 Resp 20 09/17/17 04:00 BP 125/71 09/17/17 04:00 Pulse Ox 92 L 09/17/17 04:00 Intake & Output 09/16/17 09/17/17 09/17/17 18:59 06:59 18:59 Intake Total 130 Output Total 1375 1800 Balance -1245 -1800 Weight 106 kg Intake: IV 10 normal saline flush 10 Oral 120 Output: Urine 1375 1800 Other: Voiding Method Indwelling Catheter Indwelling Catheter # Bowel Movements 1 - Exam General appearance: alert, less anxious, not in distress as noted previously Head exam: Present: atraumatic, normocephalic, normal inspection Eye exam: Present: normal appearance, PERRL, EOMI. Absent: scleral icterus, conjunctival injection, periorbital swelling ENT exam: Present: normal exam, mucous membranes moist Neck exam: Present: normal inspection. Absent: tenderness, meningismus, lymphadenopathy Respiratory exam: Present: Mild respiratory distress, bilateral fine wheezes, accessory muscle use, decreased breath sounds, bilateral bases with dullness to percussion, prolonged expiratory. Noted scattered basal rales, no rhonchi or stridor noted, improved air entry on the right side has been noted compared to prior exam Cardiovascular Exam: Present: regular rate, normal rhythm, normal heart sounds. Absent: systolic murmur, diastolic murmur, rubs, gallop, clicks GI/Abdominal exam: Present: soft, normal bowel sounds. Absent: distended, tenderness, guarding, rebound, rigid Extremities exam: Present: normal inspection, full ROM, normal capillary refill. Absent: tenderness, +1 pedal edema, no joint swelling, no calf tenderness Back exam: Present: normal inspection Neurological exam: Present: alert, oriented X3, CN II-XII intact Psychiatric exam: Present: normal affect, normal mood Skin exam: Present: warm, dry, intact, normal color. Absent: rash - Labs CBC & Chem 7: 09/15/17 06:17 09/17/17 05:44 Labs: Abnormal Lab Results - Last 24 Hours (Table) 09/16/17 09/16/17 09/16/17 Range/Units 11:52 16:37 21:06 Carbon Dioxide (22-30) mmol/L BUN (9-20) mg/dL Glucose (74-99) mg/dL POC Glucose (mg/dL) 51 L 192 H 255 H (75-99) mg/dL 09/17/17 09/17/17 Range/Units 05:44 05:45 Carbon Dioxide 46 H* (22-30) mmol/L BUN 52 H (9-20) mg/dL Glucose 142 H (74-99) mg/dL POC Glucose (mg/dL) 133 H (75-99) mg/dL Microbiology - Last 24 Hours (Table) 09/14/17 09:30 Gram Stain - Preliminary Pleural Fluid Body Fluid Culture - Preliminary Assessment and Plan Assessment: intermittent episodes of confusion likely related to multiple medical problems and issues as dictated below Bilateral pleural effusion right more than left related to congestive heart failure which is due to acute systolic heart failure Acute hypoxic respiratory failure related to acute exacerbation of COPD and acute systolic heart failure Acute exacerbation of CHF likely acute systolic heart failure with ejection fraction of 45% Cardiomyopathy likely ischemic Non-ST segment elevated [place] acute Severe COPD Hypertension hypertensive cardiovascular disease Purulent tracheobronchitis, improved off of Rocephin Plan: Continue breathing treatment with nebulizer therapy, will monitor observe off of steroid, we'll continue home medication, continue Lasix, heparin has been discontinued i will obtain repeat ultrasound of chest bilateral On Monday for follow-up to demonstrate reaccumulation of fluid and for need of thoracentesis, continued to observe off of antibiotics continue breathing treatment continue antilipid agent optimize heart failure therapy monitor renal functions closely Time with Patient: Greater than 30
--- NOTE | 2017-09-17 08:02 | P.PN ---
Subjective Progress Note Date: 09/17/17 Principal diagnosis: Large bilateral pleural effusion right more than left Acute hypoxic respiratory failure, acute systolic heart failure, acute non-ST segment elevated [place], nonsustained ventricular tachycardia, COPD severe 09/17/2017, patient seen and evaluated examined during the rounds this morning clinically patient is doing slightly better in terms of breathing he is being diuresed cardiovascular services planning to change her Lasix to by mouth, patient is doing overall fairly well with supplemental oxygen and breathing treatments no obvious distress is present, patient does have intermittent episodes of agitation however resolved, as discussed with the primary service patient likely to go to [facility] tomorrow, will do the ultrasound of the chest early in the morning to see if patient needs a further thoracentesis 09/16/2017, patient seen and evaluated examined during the rounds clinically from respiratory standpoint doing better patient remains on supplemental oxygen cough congestion shortness breath stable patient continued to get breathing treatment and obvious distress is present at times patient becomes anxious and agitated most of time remains fairly composed, care plan discussed with the cardiovascular services plan is to continue supportive care noted aggressive intervention are being considered at this point of time 09/15/2017, patient seen and evaluated examined during the rounds clinically doing slightly better respiratory status improved patient is status post thoracentesis and 1.8 L of pleural fluid has been removed, preliminary results of the pleural fluid reviewed consistent with transudative effusion related to congestive heart failure related to acute on chronic systolic heart failure 09/14/2017, patient seen and evaluated examined during the rounds from respiratory standpoint gets short of breath on minimal activity and exertion cuff congestion shortness was stable improved trace edema is present in generalized, ultrasound results and reports are reviewed care plan discussed with the nursing staff and heparin drip has been discontinued we'll plan for thoracentesis later on today, continue other supportive care breathing treatments 09/13/2017, patient seen and evaluated examined during the rounds he still short of breath slightly more stable now compared to earlier this morning when he had a episode of acute shortness of breath bend into respiratory distress test stat chest x-ray was performed and reviewed which revealed bilateral basal atelectasis as well as bilateral pleural effusion ultrasound of the chest has been performed which has been reviewed findings are reviewed with the primary service as well as the cardiovascular services as well, currently patient is on 3 L oxygen still have dry nonproductive, but severity has improved he does get short of breath on minimal activity and exertion, patient remains on IV heparin as per cardiovascular disease services however likely to be stopped later on today 09/12/2017, patient seen and evaluated examined fistula shortness of breath the and cough but however CVAT has improved patient FiO2 is down to 3 L now she remains on IV heparin for non-ST segment elevated DE no other [place] complains of present denies any chest pain tightness or sputum production patient remains on breathing treatments off of his steroids and antibiotic is being observed closely September 11 2017, patient seen eval examined during the rounds shortness of breath slightly better patient gently being diuresed patient remains on IV heparin for his non-ST segment elevated DE cardiovascular services following no more episodes of nonsustained ventricular tachycardia has been seen patient has a stage III renal failure and acute on chronic worsening for which she is being monitored and observed on diuretic as well Montessori questioning denies any cough or sputum production does of shortness breath on activity and exertion and occasional dry nonproductive cough however is noted my his urine culture results and reports are reviewed no growth so far my last chest x-ray revealed congestive heart failure likely pulmonary edema acute on chronic diastolic heart failure Objective - Vital Signs Vital signs: Vital Signs Temp 97.6 F 09/17/17 04:00 Pulse 70 09/17/17 04:00 Resp 20 09/17/17 04:00 BP 125/71 09/17/17 04:00 Pulse Ox 92 L 09/17/17 04:00 Intake & Output 09/16/17 09/17/17 09/17/17 18:59 06:59 18:59 Intake Total 130 Output Total 1375 1800 Balance -1245 -1800 Weight 106 kg Intake: IV 10 normal saline flush 10 Oral 120 Output: Urine 1375 1800 Other: Voiding Method Indwelling Catheter Indwelling Catheter # Bowel Movements 1 - Exam General appearance: alert, less anxious, not in distress as noted previously Head exam: Present: atraumatic, normocephalic, normal inspection Eye exam: Present: normal appearance, PERRL, EOMI. Absent: scleral icterus, conjunctival injection, periorbital swelling ENT exam: Present: normal exam, mucous membranes moist Neck exam: Present: normal inspection. Absent: tenderness, meningismus, lymphadenopathy Respiratory exam: Present: Mild respiratory distress, bilateral fine wheezes, accessory muscle use, decreased breath sounds, bilateral bases with dullness to percussion, prolonged expiratory. Noted scattered basal rales, no rhonchi or stridor noted, improved air entry on the right side has been noted compared to prior exam Cardiovascular Exam: Present: regular rate, normal rhythm, normal heart sounds. Absent: systolic murmur, diastolic murmur, rubs, gallop, clicks GI/Abdominal exam: Present: soft, normal bowel sounds. Absent: distended, tenderness, guarding, rebound, rigid Extremities exam: Present: normal inspection, full ROM, normal capillary refill. Absent: tenderness, +1 pedal edema, no joint swelling, no calf tenderness Back exam: Present: normal inspection Neurological exam: Present: alert, oriented X3, CN II-XII intact Psychiatric exam: Present: normal affect, normal mood Skin exam: Present: warm, dry, intact, normal color. Absent: rash - Labs CBC & Chem 7: 09/15/17 06:17 09/17/17 05:44 Labs: Abnormal Lab Results - Last 24 Hours (Table) 09/16/17 09/16/17 09/16/17 Range/Units 11:52 16:37 21:06 Carbon Dioxide (22-30) mmol/L BUN (9-20) mg/dL Glucose (74-99) mg/dL POC Glucose (mg/dL) 51 L 192 H 255 H (75-99) mg/dL 09/17/17 09/17/17 Range/Units 05:44 05:45 Carbon Dioxide 46 H* (22-30) mmol/L BUN 52 H (9-20) mg/dL Glucose 142 H (74-99) mg/dL POC Glucose (mg/dL) 133 H (75-99) mg/dL Microbiology - Last 24 Hours (Table) 09/14/17 09:30 Gram Stain - Preliminary Pleural Fluid Body Fluid Culture - Preliminary Assessment and Plan Assessment: intermittent episodes of confusion likely related to multiple medical problems and issues as dictated below Bilateral pleural effusion right more than left related to congestive heart failure which is due to acute systolic heart failure Acute hypoxic respiratory failure related to acute exacerbation of COPD and acute systolic heart failure Acute exacerbation of CHF likely acute systolic heart failure with ejection fraction of 45% Cardiomyopathy likely ischemic Non-ST segment elevated DE acute Severe COPD Hypertension hypertensive cardiovascular disease Purulent tracheobronchitis, improved off of Rocephin Plan: Continue breathing treatment with nebulizer therapy, will monitor observe off of steroid, we'll continue home medication, continue Lasix, heparin has been discontinued i will obtain repeat ultrasound of chest bilateral On Monday for follow-up to demonstrate reaccumulation of fluid and for need of thoracentesis, continued to observe off of antibiotics continue breathing treatment continue antilipid agent optimize heart failure therapy monitor renal functions closely Time with Patient: Greater than 30
[2017-09-17] MEDS: IPRATROPIUM-ALBUTEROL 3 ML NEB INHALATION SCH ×4 (08:59→21:14)
[2017-09-17 12:06] LABS: Glucose,Whole Blood 79 mg/dL (75-99)
[2017-09-17 12:06] LABS: Glucose,Whole Blood 60 mg/dL (75-99)
[2017-09-17 18:06] LABS: Glucose,Whole Blood 145 mg/dL (75-99)
[2017-09-17] MEDS: ATORVASTATIN 40 MG TAB PO SCH (20:44)
[2017-09-17] MEDS: MELATONIN 5 MG TABLET PO SCH (20:44)
[2017-09-17] MEDS: INSULIN DETEMIR 100 UNIT/ML 10 ML VIAL SQ SCH (20:44)
[2017-09-17 21:01] LABS: Glucose,Whole Blood 226 mg/dL (75-99)
[2017-09-18 06:02] LABS: Glucose,Whole Blood 241 mg/dL (75-99)
[2017-09-18 06:52] LABS: Blood Urea Nitrogen 54 mg/dL (9-20); Calcium 8.1 mg/dL (8.4-10.2); Chloride 97 mmol/L (98-107); Glucose 239 mg/dL (74-99); Potassium 4.2 mmol/L (3.5-5.1); Sodium 143 mmol/L (137-145)
[2017-09-18 06:59] LABS: Anion Gap 4 mmol/L
[2017-09-18] MEDS: CARVEDILOL 12.5 MG TAB PO SCH ×2 (07:03→18:07)
[2017-09-18 07:26] LABS: Carbon Dioxide 42 mmol/L (22-30)
[2017-09-18] MEDS: INSULIN ASPART 100 UNIT/ML 1 ML 10 ML VIAL SQ SCH ×2 (07:29→12:22)
--- NOTE | 2017-09-18 07:31 | PN ---
PROGRESS NOTE This patient is admitted with acute exacerbation of COPD. Patient remains slightly lethargic but no acute respiratory distress is noted. Patient is afebrile. Heart rate is 70 per minute, blood pressure is 153/86 mmHg. First and second heart sounds are normal. There is bilateral diminished air entry noted. Abdomen is soft. EXTREMITIES: There is no evidence of any significant leg edema. Patient's BUN is now 52 and creatinine is 0.9. We will discontinue the IV Lasix and the patient will be started on the p.o. Lasix. MMODL / IJN: [id number] /
[2017-09-18] MEDS: IPRATROPIUM-ALBUTEROL 3 ML NEB INHALATION SCH ×4 (08:32→20:51)
--- NOTE | 2017-09-18 08:46 | US ---
EXAMINATION TYPE: US chest DATE OF EXAM: 09/18/2017 COMPARISON: NONE CLINICAL HISTORY: monitor fluid, post thoracentesis. Bilateral pleural effusions EXAM MEASUREMENTS: Right Pleural Effusion fluid pocket: 4.8 cm Right skin to fluid thickness: 3.6 cm Left Pleural Effusion fluid pocket: 9.3 cm Left skin to fluid thickness: 4.0 cm Right side marked for possible thoracentesis outside the dept. Left side marked for possible thoracentesis outside the dept. Pulmonologists are able to review the images in the patient?s EMR. IMPRESSIONS: 1. Bilateral pleural effusions.
[2017-09-18] MEDS: SODIUM CHLORIDE 0.9% 1,000 ML IV SCH (09:08)
[2017-09-18] MEDS: amLODIPine 5 MG TAB PO SCH (09:14)
[2017-09-18] MEDS: MAGNESIUM OXIDE 400 MG TAB PO SCH (09:15)
[2017-09-18] MEDS: CITALOPRAM HYDROBROMIDE 20 MG TAB PO SCH (09:15)
[2017-09-18] MEDS: DOCUSATE 100 MG CAP PO SCH (09:15)
[2017-09-18] MEDS: CHOLECALCIFEROL 1,000 UNIT TAB PO SCH (09:15)
[2017-09-18] MEDS: LISINOPRIL 20 MG TAB PO SCH (09:15)
[2017-09-18] MEDS: risperiDONE 0.5 MG TAB PO SCH (09:15)
[2017-09-18] MEDS: ASPIRIN 81 MG PO SCH (09:15)
[2017-09-18] MEDS: FUROSEMIDE 40 MG TAB PO SCH ×2 (09:15→16:08)
[2017-09-18] MEDS ORDERED: LIDOCAINE 2% INJ 20 MG/ML (20 ML MDV) ONE (11:13)
[2017-09-18 11:26] LABS: Glucose,Whole Blood 152 mg/dL (75-99)
--- NOTE | 2017-09-18 12:04 | P.PN ---
Subjective Progress Note Date: 09/18/17 Principal diagnosis: Large bilateral pleural effusion right more than left Acute hypoxic respiratory failure, acute systolic heart failure, acute non-ST segment elevated [place], nonsustained ventricular tachycardia, COPD severe 09/18/2017, patient seen eval examined during the rounds clinically doing well but still get short of breath intermittent episodes of confusion has been seen which is not much change from baseline, ultrasound of the chest this morning reviewed large pleural effusion the left side is present slightly progressed compared to prior exam this pleural effusion does not appear to be responding to diuresis diuresis homologue will require left-sided thoracentesis procedure explained to the patient, risk alternative and side effects explained 09/17/2017, patient seen and evaluated examined during the rounds this morning clinically patient is doing slightly better in terms of breathing he is being diuresed cardiovascular services planning to change her Lasix to by mouth, patient is doing overall fairly well with supplemental oxygen and breathing treatments no obvious distress is present, patient does have intermittent episodes of agitation however resolved, as discussed with the primary service patient likely to go to [facility] tomorrow, will do the ultrasound of the chest early in the morning to see if patient needs a further thoracentesis 09/16/2017, patient seen and evaluated examined during the rounds clinically from respiratory standpoint doing better patient remains on supplemental oxygen cough congestion shortness breath stable patient continued to get breathing treatment and obvious distress is present at times patient becomes anxious and agitated most of time remains fairly composed, care plan discussed with the cardiovascular services plan is to continue supportive care noted aggressive intervention are being considered at this point of time 09/15/2017, patient seen and evaluated examined during the rounds clinically doing slightly better respiratory status improved patient is status post thoracentesis and 1.8 L of pleural fluid has been removed, preliminary results of the pleural fluid reviewed consistent with transudative effusion related to congestive heart failure related to acute on chronic systolic heart failure 09/14/2017, patient seen and evaluated examined during the rounds from respiratory standpoint gets short of breath on minimal activity and exertion cuff congestion shortness was stable improved trace edema is present in generalized, ultrasound results and reports are reviewed care plan discussed with the nursing staff and heparin drip has been discontinued we'll plan for thoracentesis later on today, continue other supportive care breathing treatments 09/13/2017, patient seen and evaluated examined during the rounds he still short of breath slightly more stable now compared to earlier this morning when he had a episode of acute shortness of breath bend into respiratory distress test stat chest x-ray was performed and reviewed which revealed bilateral basal atelectasis as well as bilateral pleural effusion ultrasound of the chest has been performed which has been reviewed findings are reviewed with the primary service as well as the cardiovascular services as well, currently patient is on 3 L oxygen still have dry nonproductive, but severity has improved he does get short of breath on minimal activity and exertion, patient remains on IV heparin as per cardiovascular disease services however likely to be stopped later on today 09/12/2017, patient seen and evaluated examined fistula shortness of breath the and cough but however CVAT has improved patient FiO2 is down to 3 L now she remains on IV heparin for non-ST segment elevated [place] no other [place] complains of present denies any chest pain tightness or sputum production patient remains on breathing treatments off of his steroids and antibiotic is being observed closely September 11 2017, patient seen eval examined during the rounds shortness of breath slightly better patient gently being diuresed patient remains on IV heparin for his non-ST segment elevated [place] cardiovascular services following no more episodes of nonsustained ventricular tachycardia has been seen patient has a stage III renal failure and acute on chronic worsening for which she is being monitored and observed on diuretic as well [place]ess[place] questioning denies any cough or sputum production does of shortness breath on activity and exertion and occasional dry nonproductive cough however is noted my his urine culture results and reports are reviewed no growth so far my last chest x-ray revealed congestive heart failure likely pulmonary edema acute on chronic diastolic heart failure Objective - Vital Signs Vital signs: Vital Signs Temp 97.4 F L 09/18/17 04:00 Pulse 88 09/18/17 11:57 Resp 18 09/18/17 04:00 BP 152/69 09/18/17 04:00 Pulse Ox 94 L 09/18/17 11:57 Intake & Output 09/17/17 09/18/17 09/18/17 18:59 06:59 18:59 Intake Total 850 100 120 Output Total 625 500 Balance 225 -400 120 Weight 100.5 kg Intake: IV 10 normal saline flush 10 Oral 840 100 120 Output: Urine 625 500 Other: Voiding Method Indwelling Catheter Diaper Indwelling Catheter # Voids 1 - Exam General appearance: alert, less anxious, not in distress as noted previously Head exam: Present: atraumatic, normocephalic, normal inspection Eye exam: Present: normal appearance, PERRL, EOMI. Absent: scleral icterus, conjunctival injection, periorbital swelling ENT exam: Present: normal exam, mucous membranes moist Neck exam: Present: normal inspection. Absent: tenderness, meningismus, lymphadenopathy Respiratory exam: Present: Mild respiratory distress, bilateral fine wheezes, accessory muscle use, decreased breath sounds, bilateral bases with dullness to percussion, prolonged expiratory. Noted scattered basal rales, no rhonchi or stridor noted, improved air entry on the right side has been noted compared to prior exam Cardiovascular Exam: Present: regular rate, normal rhythm, normal heart sounds. Absent: systolic murmur, diastolic murmur, rubs, gallop, clicks GI/Abdominal exam: Present: soft, normal bowel sounds. Absent: distended, tenderness, guarding, rebound, rigid Extremities exam: Present: normal inspection, full ROM, normal capillary refill. Absent: tenderness, +1 pedal edema, no joint swelling, no calf tenderness Back exam: Present: normal inspection Neurological exam: Present: alert, oriented X3, CN II-XII intact Psychiatric exam: Present: normal affect, normal mood Skin exam: Present: warm, dry, intact, normal color. Absent: rash - Labs CBC & Chem 7: 09/15/17 06:17 09/18/17 06:06 Labs: Abnormal Lab Results - Last 24 Hours (Table) 09/17/17 09/17/17 09/17/17 Range/Units 11:22 17:22 20:59 Chloride (98-107) mmol/L Carbon Dioxide (22-30) mmol/L BUN (9-20) mg/dL Glucose (74-99) mg/dL POC Glucose (mg/dL) 60 L 145 H 226 H (75-99) mg/dL Calcium (8.4-10.2) mg/dL 09/18/17 09/18/17 09/18/17 Range/Units 05:58 06:06 11:24 Chloride 97 L (98-107) mmol/L Carbon Dioxide 42 H* (22-30) mmol/L BUN 54 H (9-20) mg/dL Glucose 239 H (74-99) mg/dL POC Glucose (mg/dL) 241 H 152 H (75-99) mg/dL Calcium 8.1 L (8.4-10.2) mg/dL Microbiology - Last 24 Hours (Table) 09/14/17 09:30 Gram Stain - Final Pleural Fluid Body Fluid Culture - Final Assessment and Plan Assessment: intermittent episodes of confusion likely related to multiple medical problems and issues as dictated below Bilateral pleural effusion left more than right related to congestive heart failure which is due to acute systolic heart failure Acute hypoxic respiratory failure related to acute exacerbation of COPD and acute systolic heart failure Acute exacerbation of CHF likely acute systolic heart failure with ejection fraction of 45% Cardiomyopathy likely ischemic Non-ST segment elevated [place] acute Severe COPD Hypertension hypertensive cardiovascular disease Purulent tracheobronchitis, improved off of Rocephin Plan: Continue breathing treatment with nebulizer therapy, will monitor observe off of steroid, we'll continue home medication, continue Lasix, heparin has been discontinued Reviewed repeat ultrasound of chest bilateral earlier today for follow-up to demonstrate reaccumulation of fluid and for need of thoracentesis, moderate to large pleural effusion seen on the left side will do a left thoracentesis continued to observe off of antibiotics continue breathing treatment continue antilipid agent optimize heart failure therapy monitor renal functions closely Time with Patient: Greater than 30
--- NOTE | 2017-09-18 14:39 | PN ---
PROGRESS NOTE This patient is being treated for acute congestive cardiac failure and acute exacerbation of COPD. He is doing better. Patient is more alert and awake today. Blood pressure is 152/69 mmHg. First and second heart sounds are normal. Lungs are clear to auscultation and percussion. Patient is switched to the p.o. Lasix and he will be discharged tomorrow. MMODL / IJN: [id number] /
[2017-09-18] MEDS ORDERED: FUROSEMIDE 10 MG/ML 4 ML VIAL IV STA (15:10)
[2017-09-18 16:39] LABS: Glucose,Whole Blood 123 mg/dL (75-99)
--- NOTE | 2017-09-18 17:04 | PN ---
PROGRESS NOTE DATE OF SERVICE: 09/17/2017 CHIEF COMPLAINT: Congestive heart failure, COPD, diabetes. HISTORY OF PRESENT ILLNESS: There has been no interval change in this gentleman. He continues to be a little bit lethargic but otherwise is stable. Blood sugars are down. PHYSICAL EXAMINATION: CHEST: Clear. Cardiac exam is normal. The abdomen is soft, nontender. IMPRESSION: 1. Acute myocardial infarction. 2. Congestive heart failure. 3. Chronic obstructive pulmonary disease. 4. Diabetes. PLAN: He can probably be discharged any time he is cleared by Cardiology. They were planning a cardiac catheterization at one point, and this will be discussed. MMODL / IJN: [id number] /
--- NOTE | 2017-09-18 17:19 | PN ---
PROGRESS NOTE DATE OF SERVICE: 09/18/2017 CHIEF COMPLAINT: Congestive heart failure and acute PA. HISTORY OF PRESENT ILLNESS: This gentleman is doing fairly well. There has been no interval change. Physical exam is unchanged. IMPRESSION: 1. Congestive heart failure. 2. Chronic obstructive pulmonary disease. 3. Pleural effusion. 4. Diabetes. PLAN: He can go to a nursing facility as soon as he is cleared by Cardiology. MMODL / IJN: [id number] /
[2017-09-18 20:50] LABS: Glucose,Whole Blood 188 mg/dL (75-99)
[2017-09-19] MEDS: INSULIN DETEMIR 100 UNIT/ML 10 ML VIAL SQ SCH ×2 (00:29→23:53)
[2017-09-19] MEDS: MAGNESIUM OXIDE 400 MG TAB PO SCH ×2 (00:29→11:23)
[2017-09-19] MEDS: ATORVASTATIN 40 MG TAB PO SCH ×2 (00:29→23:54)
[2017-09-19] MEDS: MELATONIN 5 MG TABLET PO SCH ×2 (00:29→23:53)
[2017-09-19 06:29] LABS: Glucose,Whole Blood 189 mg/dL (75-99)
[2017-09-19] MEDS: IPRATROPIUM-ALBUTEROL 3 ML NEB INHALATION SCH ×5 (07:24→20:02)
[2017-09-19] MEDS: INSULIN ASPART 100 UNIT/ML 1 ML 10 ML VIAL SQ SCH ×2 (07:52→13:31)
[2017-09-19] MEDS: CARVEDILOL 12.5 MG TAB PO SCH ×2 (07:52→16:27)
[2017-09-19] MEDS ORDERED: LIDOCAINE 2% INJ 20 MG/ML (20 ML MDV) ONE (09:23)
[2017-09-19] MEDS: ASPIRIN 81 MG PO SCH (09:25)
[2017-09-19] MEDS: amLODIPine 5 MG TAB PO SCH (09:25)
[2017-09-19] MEDS: DOCUSATE 100 MG CAP PO SCH (09:26)
[2017-09-19] MEDS: CHOLECALCIFEROL 1,000 UNIT TAB PO SCH (09:26)
[2017-09-19] MEDS: CITALOPRAM HYDROBROMIDE 20 MG TAB PO SCH (09:26)
[2017-09-19] MEDS: FUROSEMIDE 40 MG TAB PO SCH ×2 (09:27→16:27)
[2017-09-19] MEDS: LISINOPRIL 20 MG TAB PO SCH (09:27)
[2017-09-19] MEDS: risperiDONE 0.5 MG TAB PO SCH (09:28)
--- NOTE | 2017-09-19 10:00 | P.PN ---
Subjective Progress Note Date: 09/19/17 Principal diagnosis: Large bilateral pleural effusion right more than left Acute hypoxic respiratory failure, acute systolic heart failure, acute non-ST segment elevated [place], nonsustained ventricular tachycardia, COPD severe 09/19/2017, patient seen eval reexamined during the rounds clinically doing slightly better compared to last night but however had an episode in which become patient because more short of breath FiO2 increase from 2 L to 4 L he did receive extra dose of 40 mg of furosemide the shortness of breath slightly stabilized and improved but still get short of breath on activity and exertion repeat ultrasound reviewed a large pocket of fluid is seen on the left side which is to be tapped later on today, procedure explained to the patient 09/18/2017, patient seen eval examined during the rounds clinically doing well but still get short of breath intermittent episodes of confusion has been seen which is not much change from baseline, ultrasound of the chest this morning reviewed large pleural effusion the left side is present slightly progressed compared to prior exam this pleural effusion does not appear to be responding to diuresis diuresis homologue will require left-sided thoracentesis procedure explained to the patient, risk alternative and side effects explained 09/17/2017, patient seen and evaluated examined during the rounds this morning clinically patient is doing slightly better in terms of breathing he is being diuresed cardiovascular services planning to change her Lasix to by mouth, patient is doing overall fairly well with supplemental oxygen and breathing treatments no obvious distress is present, patient does have intermittent episodes of agitation however resolved, as discussed with the primary service patient likely to go to [facility] tomorrow, will do the ultrasound of the chest early in the morning to see if patient needs a further thoracentesis 09/16/2017, patient seen and evaluated examined during the rounds clinically from respiratory standpoint doing better patient remains on supplemental oxygen cough congestion shortness breath stable patient continued to get breathing treatment and obvious distress is present at times patient becomes anxious and agitated most of time remains fairly composed, care plan discussed with the cardiovascular services plan is to continue supportive care noted aggressive intervention are being considered at this point of time 09/15/2017, patient seen and evaluated examined during the rounds clinically doing slightly better respiratory status improved patient is status post thoracentesis and 1.8 L of pleural fluid has been removed, preliminary results of the pleural fluid reviewed consistent with transudative effusion related to congestive heart failure related to acute on chronic systolic heart failure 09/14/2017, patient seen and evaluated examined during the rounds from respiratory standpoint gets short of breath on minimal activity and exertion cuff congestion shortness was stable improved trace edema is present in generalized, ultrasound results and reports are reviewed care plan discussed with the nursing staff and heparin drip has been discontinued we'll plan for thoracentesis later on today, continue other supportive care breathing treatments 09/13/2017, patient seen and evaluated examined during the rounds he still short of breath slightly more stable now compared to earlier this morning when he had a episode of acute shortness of breath bend into respiratory distress test stat chest x-ray was performed and reviewed which revealed bilateral basal atelectasis as well as bilateral pleural effusion ultrasound of the chest has been performed which has been reviewed findings are reviewed with the primary service as well as the cardiovascular services as well, currently patient is on 3 L oxygen still have dry nonproductive, but severity has improved he does get short of breath on minimal activity and exertion, patient remains on IV heparin as per cardiovascular disease services however likely to be stopped later on today 09/12/2017, patient seen and evaluated examined fistula shortness of breath the and cough but however CVAT has improved patient FiO2 is down to 3 L now she remains on IV heparin for non-ST segment elevated [place] no other [place] complains of present denies any chest pain tightness or sputum production patient remains on breathing treatments off of his steroids and antibiotic is being observed closely September 11 2017, patient seen eval examined during the rounds shortness of breath slightly better patient gently being diuresed patient remains on IV heparin for his non-ST segment elevated [place] cardiovascular services following no more episodes of nonsustained ventricular tachycardia has been seen patient has a stage III renal failure and acute on chronic worsening for which she is being monitored and observed on diuretic as [facility] denies any cough or sputum production does of shortness breath on activity and exertion and occasional dry nonproductive cough however is noted my his urine culture results and reports are reviewed no growth so far my last chest x-ray revealed congestive heart failure likely pulmonary edema acute on chronic diastolic heart failure Objective - Vital Signs Vital signs: Vital Signs Temp 97.8 F 09/19/17 08:00 Pulse 60 09/19/17 08:00 Resp 20 09/19/17 08:00 BP 141/63 09/19/17 08:00 Pulse Ox 94 L 09/19/17 08:00 Intake & Output 09/18/17 09/19/17 09/19/17 18:59 06:59 18:59 Intake Total 360 Output Total 1500 3000 Balance -1140 -3000 Weight 95 kg Intake: Oral 360 Output: Urine 1500 3000 Other: Voiding Method Diaper Diaper Indwelling Catheter Indwelling Catheter # Voids 1 - Exam General appearance: alert, less anxious, not in distress as noted previously Head exam: Present: atraumatic, normocephalic, normal inspection Eye exam: Present: normal appearance, PERRL, EOMI. Absent: scleral icterus, conjunctival injection, periorbital swelling ENT exam: Present: normal exam, mucous membranes moist Neck exam: Present: normal inspection. Absent: tenderness, meningismus, lymphadenopathy Respiratory exam: Present: Mild respiratory distress, bilateral fine wheezes, accessory muscle use, decreased breath sounds, bilateral bases with dullness to percussion, prolonged expiratory. Noted scattered basal rales, no rhonchi or stridor noted, improved air entry on the right side has been noted compared to prior exam Cardiovascular Exam: Present: regular rate, normal rhythm, normal heart sounds. Absent: systolic murmur, diastolic murmur, rubs, gallop, clicks GI/Abdominal exam: Present: soft, normal bowel sounds. Absent: distended, tenderness, guarding, rebound, rigid Extremities exam: Present: normal inspection, full ROM, normal capillary refill. Absent: tenderness, +1 pedal edema, no joint swelling, no calf tenderness Back exam: Present: normal inspection Neurological exam: Present: alert, oriented X3, CN II-XII intact Psychiatric exam: Present: normal affect, normal mood Skin exam: Present: warm, dry, intact, normal color. Absent: rash - Labs CBC & Chem 7: 09/15/17 06:17 09/18/17 06:06 Labs: Abnormal Lab Results - Last 24 Hours (Table) 09/18/17 09/18/17 09/18/17 Range/Units 11:24 16:38 20:45 POC Glucose (mg/dL) 152 H 123 H 188 H (75-99) mg/dL 09/19/17 Range/Units 06:24 POC Glucose (mg/dL) 189 H (75-99) mg/dL Microbiology - Last 24 Hours (Table) 09/14/17 09:30 Gram Stain - Final Pleural Fluid Body Fluid Culture - Final Assessment and Plan Assessment: intermittent episodes of confusion likely related to multiple medical problems and issues as dictated below Bilateral pleural effusion left more than right related to congestive heart failure which is due to acute systolic heart failure Acute hypoxic respiratory failure related to acute exacerbation of COPD and acute systolic heart failure Acute exacerbation of CHF likely acute systolic heart failure with ejection fraction of 45% Cardiomyopathy likely ischemic Non-ST segment elevated [place] acute Severe COPD Hypertension hypertensive cardiovascular disease Purulent tracheobronchitis, improved off of Rocephin Plan: Continue breathing treatment with nebulizer therapy, will monitor observe off of steroid, we'll continue home medication, continue Lasix, heparin has been discontinued Reviewed repeat ultrasound of chest bilateral earlier today for follow-up to demonstrate reaccumulation of fluid and for need of thoracentesis, moderate to large pleural effusion seen on the left side will do a left thoracentesis continued to observe off of antibiotics continue breathing treatment continue antilipid agent optimize heart failure therapy monitor renal functions closely Time with Patient: Greater than 30
--- NOTE | 2017-09-19 10:53 | XR ---
EXAMINATION TYPE: XR chest 1V portable DATE OF EXAM: 09/19/2017 CLINICAL HISTORY: Right-sided thoracentesis TECHNIQUE: Single AP portable upright view of the chest is obtained. COMPARISON: Chest x-ray from 3 days earlier FINDINGS: No sizable pneumothorax after right-sided thoracentesis. There is persistent low lung volu mes and bibasilar opacity consistent with right greater than left infiltrate and/or atelectasis. Ther e is probable remnant small right pleural effusion. There is central vascular congestion redemonstrat ed felt improved. Cardiac silhouette size is stable and upper limits of normal. Osseous structures ar e intact. IMPRESSION: No sizable pneumothorax after right-sided thoracentesis. There is improving central vascu lar congestion. There is persistent right greater than left bibasilar infiltrate and atelectasis and likely residual small right pleural effusion
[2017-09-19] MEDS: SODIUM CHLORIDE 0.9% 1,000 ML IV SCH (10:57)
[2017-09-19 11:11] LABS: Basophils # (A) 0.1 k/uL (0-0.2); Basophils % (A) 1 %; Eosinophils # (A) 0.2 k/uL (0-0.7); Eosinophils % (A) 2 %; HCT 37.8 % (39.0-53.0); HGB 11.6 gm/dL (13.0-17.5); Hypochromasia Slight; Lymphocytes # (A) 1.5 k/uL (1.0-4.8); Lymphocytes % (A) 16 %; MCH 30.1 pg (25.0-35.0); MCHC 30.7 g/dL (31.0-37.0); MCV 98.1 fL (80.0-100.0); Mean Platelet Volume 8.6; Monocytes # (A) 0.7 k/uL (0-1.0); Monocytes % (A) 7 %; Neutrophils % (A) 73 %; Platelet Count 151 k/uL (150-450); RBC 3.86 m/uL (4.30-5.90); RDW 13.4 % (11.5-15.5); WBC 9.6 k/uL (3.8-10.6)
[2017-09-19 11:19] LABS: ALT 28 U/L (21-72); AST 16 U/L (17-59); Albumin 2.3 g/dL (3.5-5.0); Alkaline Phosphatase 53 U/L (38-126); Anion Gap 8 mmol/L; Blood Urea Nitrogen 52 mg/dL (9-20); Calcium 8.1 mg/dL (8.4-10.2); Chloride 97 mmol/L (98-107); Glucose 122 mg/dL (74-99); Potassium 4.1 mmol/L (3.5-5.1); Sodium 145 mmol/L (137-145); Total Bilirubin 0.6 mg/dL (0.2-1.3); Total Protein 4.4 g/dL (6.3-8.2)
[2017-09-19 11:28] LABS: Carbon Dioxide 46 mmol/L (22-30)
[2017-09-19 11:43] LABS: Glucose,Whole Blood 115 mg/dL (75-99)
[2017-09-19 12:18] LABS: Appearance,BF Hazy; Color,BF Yellow
[2017-09-19 12:59] LABS: Nucleated Cells, Body Fluid 50 /uL; RBC, Body Fluid 418 /uL
[2017-09-19 13:04] LABS: Mononuclear WBC,Body Fluid 79 %; Polynuclear WBC,Body Fluid 20 %; Total Cells Counted,Body Fluid 100
--- NOTE | 2017-09-19 15:25 | P.PCN ---
Date of Procedure: 09/19/17 Preoperative Diagnosis: left pleural effusion, CHF, CAD, pulmonary edema, hypoxic respiratory failure Postoperative Diagnosis: pleural effusion Procedure(s) Performed: left thoracentesis Anesthesia: local Surgeon: Ramírez Henry Estimated Blood Loss (ml): 3 Condition: stable Disposition: floor Indications for Procedure: SOB, LEFT pleural effusion Operative Findings: 8oo cc of clear pleural fluid removed Description of Procedure: procedure explained, including risk and complication, u/s used to shanon max depth of fluid, 1% lidocaine use for local, gauge 24 needlt use to go over top of 8 th RIB after confirming aspiration of clear pleural fluid, stab incision of 1/8 cms done, followed by placement of cathetor in needle, needle withdrawn cathetor left and 800 cc of clear light yellow pleural fluid aspirated tolerated well
[2017-09-19 16:40] LABS: Glucose,Whole Blood 149 mg/dL (75-99)
[2017-09-19 18:25] LABS: Total Protein, Body Fluid 550 mg/dL
--- NOTE | 2017-09-19 19:17 | PN ---
PROGRESS NOTE CHIEF COMPLAINT: Acute [place] and congestive heart failure. HISTORY OF PRESENT ILLNESS: This patient's condition is deteriorating. He has become a little bit more lethargic and he has redeveloped a pleural effusion. We are waiting on discharge arrangements. He will certainly have to go to a snf, and he probably should be seen by Hospice. PHYSICAL EXAMINATION: He is more lethargic than usual. Cardiac exam is unchanged and his chest demonstrates poor breath sounds. The abdomen is soft, nontender. IMPRESSION: 1. Acute myocardial infarction. 2. Congestive heart failure. 3. Chronic obstructive pulmonary disease. 4. Diabetes. 5. Pleural effusion. PLAN: 1. Awaiting snf placement. 2. Hospice referral. MMODL / IJN: [id number] /
[2017-09-19 20:59] LABS: Glucose,Whole Blood 257 mg/dL (75-99)
[2017-09-19] MEDS: HEPARIN SODIUM,PORCINE 5,000 UNIT/ML 1 ML VIAL SQ SCH (21:14)
[2017-09-20 06:00] LABS: Glucose,Whole Blood 161 mg/dL (75-99)
[2017-09-20] MEDS: INSULIN ASPART 100 UNIT/ML 1 ML 10 ML VIAL SQ SCH ×2 (07:03→12:16)
[2017-09-20] MEDS: CARVEDILOL 12.5 MG TAB PO SCH (07:18)
[2017-09-20] MEDS: IPRATROPIUM-ALBUTEROL 3 ML NEB INHALATION SCH ×2 (08:04→11:31)
[2017-09-20] MEDS: CHOLECALCIFEROL 1,000 UNIT TAB PO SCH (08:41)
[2017-09-20] MEDS: ASPIRIN 81 MG PO SCH (08:41)
[2017-09-20] MEDS: CITALOPRAM HYDROBROMIDE 20 MG TAB PO SCH (08:42)
[2017-09-20] MEDS: DOCUSATE 100 MG CAP PO SCH (08:43)
[2017-09-20] MEDS: risperiDONE 0.5 MG TAB PO SCH (08:43)
[2017-09-20] MEDS: FUROSEMIDE 40 MG TAB PO SCH (08:43)
[2017-09-20] MEDS: HEPARIN SODIUM,PORCINE 5,000 UNIT/ML 1 ML VIAL SQ SCH (08:43)
[2017-09-20] MEDS: amLODIPine 5 MG TAB PO SCH (08:58)
[2017-09-20] MEDS: LISINOPRIL 20 MG TAB PO SCH (08:58)
--- NOTE | 2017-09-20 10:32 | P.PN ---
Subjective Progress Note Date: 09/20/17 Principal diagnosis: Large bilateral pleural effusion right more than left Acute hypoxic respiratory failure, acute systolic heart failure, acute non-ST segment elevated [place], nonsustained ventricular tachycardia, COPD severe 09/20/2017, status post left thoracentesis over 800 mL of clear left-sided pleural fluid removed biochemistry suggestive of transudative effusion likely related to acute on chronic systolic heart failure , patient seen and evaluated examined during the rounds he is slightly more short of breath than usual, denies any chest pain cough or sputum production, hemodynamic status is overall stable except blood pressure slightly running on the lower side, patient has been complaining of abdominal distention a quick check on ultrasound of the bladder revealed over 900 mL of urine patient unable to void the urine acute urinary retention appears to be causing more worsening of breathing issues, patient is being planned for placement of a Rivera's catheter, would also benefit from Flomax 09/19/2017, patient seen eval reexamined during the rounds clinically doing slightly better compared to last night but however had an episode in which become patient because more short of breath FiO2 increase from 2 L to 4 L he did receive extra dose of 40 mg of furosemide the shortness of breath slightly stabilized and improved but still get short of breath on activity and exertion repeat ultrasound reviewed a large pocket of fluid is seen on the left side which is to be tapped later on today, procedure explained to the patient 09/18/2017, patient seen eval examined during the rounds clinically doing well but still get short of breath intermittent episodes of confusion has been seen which is not much change from baseline, ultrasound of the chest this morning reviewed large pleural effusion the left side is present slightly progressed compared to prior exam this pleural effusion does not appear to be responding to diuresis diuresis homologue will require left-sided thoracentesis procedure explained to the patient, risk alternative and side effects explained 09/17/2017, patient seen and evaluated examined during the rounds this morning clinically patient is doing slightly better in terms of breathing he is being diuresed cardiovascular services planning to change her Lasix to by mouth, patient is doing overall fairly well with supplemental oxygen and breathing treatments no obvious distress is present, patient does have intermittent episodes of agitation however resolved, as discussed with the primary service patient likely to go to [facility] tomorrow, will do the ultrasound of the chest early in the morning to see if patient needs a further thoracentesis 09/16/2017, patient seen and evaluated examined during the rounds clinically from respiratory standpoint doing better patient remains on supplemental oxygen cough congestion shortness breath stable patient continued to get breathing treatment and obvious distress is present at times patient becomes anxious and agitated most of time remains fairly composed, care plan discussed with the cardiovascular services plan is to continue supportive care noted aggressive intervention are being considered at this point of time 09/15/2017, patient seen and evaluated examined during the rounds clinically doing slightly better respiratory status improved patient is status post thoracentesis and 1.8 L of pleural fluid has been removed, preliminary results of the pleural fluid reviewed consistent with transudative effusion related to congestive heart failure related to acute on chronic systolic heart failure 09/14/2017, patient seen and evaluated examined during the rounds from respiratory standpoint gets short of breath on minimal activity and exertion cuff congestion shortness was stable improved trace edema is present in generalized, ultrasound results and reports are reviewed care plan discussed with the nursing staff and heparin drip has been discontinued we'll plan for thoracentesis later on today, continue other supportive care breathing treatments 09/13/2017, patient seen and evaluated examined during the rounds he still short of breath slightly more stable now compared to earlier this morning when he had a episode of acute shortness of breath bend into respiratory distress test stat chest x-ray was performed and reviewed which revealed bilateral basal atelectasis as well as bilateral pleural effusion ultrasound of the chest has been performed which has been reviewed findings are reviewed with the primary service as well as the cardiovascular services as well, currently patient is on 3 L oxygen still have dry nonproductive, but severity has improved he does get short of breath on minimal activity and exertion, patient remains on IV heparin as per cardiovascular disease services however likely to be stopped later on today 09/12/2017, patient seen and evaluated examined fistula shortness of breath the and cough but however CVAT has improved patient FiO2 is down to 3 L now she remains on IV heparin for non-ST segment elevated [place] no other [place] complains of present denies any chest pain tightness or sputum production patient remains on breathing treatments off of his steroids and antibiotic is being observed closely September 11 2017, patient seen eval examined during the rounds shortness of breath slightly better patient gently being diuresed patient remains on IV heparin for his non-ST segment elevated [place] cardiovascular services following no more episodes of nonsustained ventricular tachycardia has been seen patient has a stage III renal failure and acute on chronic worsening for which she is being monitored and observed on diuretic as well [place] questioning denies any cough or sputum production does of shortness breath on activity and exertion and occasional dry nonproductive cough however is noted my his urine culture results and reports are reviewed no growth so far my last chest x-ray revealed congestive heart failure likely pulmonary edema acute on chronic diastolic heart failure Objective - Vital Signs Vital signs: Vital Signs Temp 97.0 F L 09/20/17 07:51 Pulse 64 09/20/17 08:17 Resp 18 09/20/17 08:30 BP 95/51 09/20/17 07:51 Pulse Ox 95 09/20/17 07:54 Intake & Output 09/19/17 09/20/17 09/20/17 18:59 06:59 18:59 Intake Total 360 240 Output Total 800 1100 Balance -440 -1100 240 Weight 103.2 kg Intake: Oral 360 240 Output: Urine 800 1100 Uretheral (Rivera) 300 Other: Voiding Method Urinal Urinal Urinal Diaper Diaper Diaper # Voids 1 - Exam General appearance: alert, less anxious, not in distress as noted previously Head exam: Present: atraumatic, normocephalic, normal inspection Eye exam: Present: normal appearance, PERRL, EOMI. Absent: scleral icterus, conjunctival injection, periorbital swelling ENT exam: Present: normal exam, mucous membranes moist Neck exam: Present: normal inspection. Absent: tenderness, meningismus, lymphadenopathy Respiratory exam: Present: Mild respiratory distress, bilateral fine wheezes, accessory muscle use, decreased breath sounds, bilateral bases with dullness to percussion, prolonged expiratory. Noted scattered basal rales, no rhonchi or stridor noted, improved air entry on the right side has been noted compared to prior exam Cardiovascular Exam: Present: regular rate, normal rhythm, normal heart sounds. Absent: systolic murmur, diastolic murmur, rubs, gallop, clicks GI/Abdominal exam: Present: soft, normal bowel sounds. Lower abdomen distended , no guarding, findings on bladder check as noted above, tenderness, guarding, rebound, rigid Extremities exam: Present: normal inspection, full ROM, normal capillary refill. Absent: tenderness, +1 pedal edema, no joint swelling, no calf tenderness Back exam: Present: normal inspection Neurological exam: Present: alert, oriented X3, CN II-XII intact Psychiatric exam: Present: normal affect, normal mood Skin exam: Present: warm, dry, intact, normal color. Absent: rash - Labs CBC & Chem 7: 09/19/17 10:53 09/19/17 10:53 Labs: Abnormal Lab Results - Last 24 Hours (Table) 09/19/17 09/19/17 09/19/17 Range/Units 10:53 10:53 10:53 RBC 3.86 L (4.30-5.90) m/uL Hgb 11.6 L (13.0-17.5) gm/dL Hct 37.8 L (39.0-53.0) % MCHC 30.7 L (31.0-37.0) g/dL Chloride 97 L (98-107) mmol/L Carbon Dioxide 46 H* (22-30) mmol/L BUN 52 H (9-20) mg/dL Glucose 122 H (74-99) mg/dL POC Glucose (mg/dL) (75-99) mg/dL Calcium 8.1 L (8.4-10.2) mg/dL Magnesium 2.7 H (1.6-2.3) mg/dL AST 16 L (17-59) U/L Total Protein 4.4 L (6.3-8.2) g/dL Albumin 2.3 L (3.5-5.0) g/dL 09/19/17 09/19/17 09/19/17 Range/Units 11:32 16:35 20:58 RBC (4.30-5.90) m/uL Hgb (13.0-17.5) gm/dL Hct (39.0-53.0) % MCHC (31.0-37.0) g/dL Chloride (98-107) mmol/L Carbon Dioxide (22-30) mmol/L BUN (9-20) mg/dL Glucose (74-99) mg/dL POC Glucose (mg/dL) 115 H 149 H 257 H (75-99) mg/dL Calcium (8.4-10.2) mg/dL Magnesium (1.6-2.3) mg/dL AST (17-59) U/L Total Protein (6.3-8.2) g/dL Albumin (3.5-5.0) g/dL 09/20/17 Range/Units 05:57 RBC (4.30-5.90) m/uL Hgb (13.0-17.5) gm/dL Hct (39.0-53.0) % MCHC (31.0-37.0) g/dL Chloride (98-107) mmol/L Carbon Dioxide (22-30) mmol/L BUN (9-20) mg/dL Glucose (74-99) mg/dL POC Glucose (mg/dL) 161 H (75-99) mg/dL Calcium (8.4-10.2) mg/dL Magnesium (1.6-2.3) mg/dL AST (17-59) U/L Total Protein (6.3-8.2) g/dL Albumin (3.5-5.0) g/dL Microbiology - Last 24 Hours (Table) 09/19/17 09:30 Gram Stain - Preliminary Pleural Fluid Body Fluid Culture - Preliminary 09/19/17 09:30 Acid Fast Bacilli Smear - Final Pleural Fluid Acid Fast Bacilli Culture - Preliminary 09/19/17 09:30 Fungal Culture - Preliminary Pleural Fluid Assessment and Plan Assessment: Acute urinary retention likely related to BPH we will initiate patient on Flomax 0.4 mg daily, agree with Rivera's catheter Intermittent episodes of confusion likely related to multiple medical problems and issues as dictated below Bilateral pleural effusion status post bilateral thoracentesis related to congestive heart failure which is due to acute systolic heart failure Acute hypoxic respiratory failure related to acute exacerbation of COPD and acute systolic heart failure Acute exacerbation of CHF likely acute systolic heart failure with ejection fraction of 45% Cardiomyopathy likely ischemic Non-ST segment elevated [place] acute Severe COPD Hypertension hypertensive cardiovascular disease Purulent tracheobronchitis, improved off of Rocephin Plan: Rivera's catheter Start Flomax 0.4 mg daily Continue breathing treatment with nebulizer therapy, will monitor observe off of steroid, we'll continue home medication, continue Lasix, heparin has been discontinued Status post bilateral thoracentesis continued to observe off of antibiotics continue breathing treatment continue antilipid agent optimize heart failure therapy monitor renal functions closely
[2017-09-20 11:29] VITALS: BP 156/71; TEMP 97.9
[2017-09-20 11:33] VITALS: PULSE 68
[2017-09-20 11:38] LABS: Glucose,Whole Blood 74 mg/dL (75-99)
[2017-09-20 14:26] VITALS: RESP 16
[2017-09-20] MEDS ORDERED: TAMSULOSIN 0.4 MG CAP.ER.24H PO SCH (18:30)
[2017-09-20] MEDS ORDERED: acetaZOLAMIDE 250 MG TAB PO SCH (21:00)
--- NOTE | 2017-09-21 07:20 | DS ---
DISCHARGE SUMMARY DATE OF DISCHARGE: 09/20/2017 CHIEF COMPLAINT: Acute congestive heart failure and pulmonary edema. HISTORY OF PRESENT ILLNESS AND PHYSICAL EXAM: The details of this man's history and physical can be found in the initial workup. LABORATORY STUDIES: While he was in a hospital he had laboratory studies, details of which can be found in the laboratory section of his chart. COURSE IN HOSPITAL: After admission, he was placed on bedrest, started on intravenous fluids and IV antibiotics. He was diuresed. He did poorly. His blood sugars were uncontrolled and he had a lot of difficulty with respiratory insufficiency. Cardiac enzymes marzena and it was felt he had an acute OK. Cardiology saw him in consult, felt that he was too unstable to undergo any further testing. He continued to have difficulty breathing, requiring thoracentesis for his pleural effusion. He could not urinate spontaneously. Finally, arrangements were made for him to go back to the facility he was in he will go with a Rivera catheter in place and be seen on a p.r.n. basis. FINAL DIAGNOSES: 1. Acute congestive heart failure with pulmonary edema. 2. Acute myocardial infarction. 3. Chronic obstructive pulmonary disease. 4. Pleural effusion. 5. Major depression. OPERATIONS: None. CONSULTATIONS: Pulmonology and Cardiology. He is improved. MMODL / IJN: [id number] /
== END 2017-09-20 15:38 | disposition hospice, home (50) | DRG 280 ==
LOC: EC 09:41 → 4MS4W 11:43 → 6SEL 09-09 13:43
PROVIDERS: ADMIT Family Medicine; ATTEND Family Medicine
PROC: 0W993ZX Drainage of Right Pleural Cavity, Percutaneous Approach, Diagnostic (ICD-10-PCS; principal; 2017-09-14)
PROC: 0W9B3ZX Drainage of Left Pleural Cavity, Percutaneous Approach, Diagnostic (ICD-10-PCS; 2017-09-19)
DX: I13.0 Hypertensive heart and chronic kidney disease with heart failure and stage 1 through stage 4 chronic kidney disease, or unspecified chronic kidney disease (principal); J96.21 Acute and chronic respiratory failure with hypoxia; I21.4 Non-ST elevation (NSTEMI) myocardial infarction; I47.2 Ventricular tachycardia; J44.0 Chronic obstructive pulmonary disease with (acute) lower respiratory infection; J91.8 Pleural effusion in other conditions classified elsewhere; J45.41 Moderate persistent asthma with (acute) exacerbation; I27.20 Pulmonary hypertension, unspecified; N18.3 Chronic kidney disease, stage 3 (moderate); I50.23 Acute on chronic systolic (congestive) heart failure; J44.1 Chronic obstructive pulmonary disease with (acute) exacerbation; J98.11 Atelectasis; E11.22 Type 2 diabetes mellitus with diabetic chronic kidney disease; I25.5 Ischemic cardiomyopathy; J20.9 Acute bronchitis, unspecified; D45 Polycythemia vera; I35.8 Other nonrheumatic aortic valve disorders; I25.10 Atherosclerotic heart disease of native coronary artery without angina pectoris; E78.5 Hyperlipidemia, unspecified; L30.9 Dermatitis, unspecified; D72.829 Elevated white blood cell count, unspecified; T38.0X5A Adverse effect of glucocorticoids and synthetic analogues, initial encounter; N40.1 Benign prostatic hyperplasia with lower urinary tract symptoms; R33.8 Other retention of urine; F41.9 Anxiety disorder, unspecified; F32.9 Major depressive disorder, single episode, unspecified; F60.9 Personality disorder, unspecified; Z79.4 Long term (current) use of insulin; Z79.899 Other long term (current) drug therapy; Z87.891 Personal history of nicotine dependence; Z87.01 Personal history of pneumonia (recurrent); Z98.42 Cataract extraction status, left eye; Z86.73 Personal history of transient ischemic attack (TIA), and cerebral infarction without residual deficits; Z82.49 Family history of ischemic heart disease and other diseases of the circulatory system
CPT/HCPCS: 36415; 71045; 71046; 76604; 80048; 80053; 81001; 82550; 82553; 82945; 83036; 83615; 83735; 83880; 84100; 84155; 84157; 84484; 85025; 85610; 85730; 87070; 87086; 87102; 87116; 87205; 87206; 87252; 87496; 87498; 87502; 87529; 87634; 87798; 88108; 88305; 88341; 88342; 89050; 93005; 93306; 94640; 94644; 94760; 96361; 96374; 99291